=== PATIENT | female | born 1960 | race Caucasian/White ===

== ENCOUNTER 2020-07-11 15:39 | Outpatient (RCR) | payer OTHER, MEDICARE, SELFPAY ==
--- NOTE | 2020-07-11 16:22 | PTOPEVAL ---
Thank you for referring Missy Barrios to [facility].? The patient is scheduled to be seen for therapy? __3__x/week for 12 visits. Please review, sign, date and return this plan of care MEL. I agree with and certify that the following plan of care is medically necessary. Referring Physician Date Admitting Provider: Attending Provider: Mickey Raphael, PA Referring Provider: *PT Outpatient Evaluation Start: 07/11/20 15:44 Freq: Status: Active Protocol: Document 07/11/20 15:44 CAITLYN (Rec: 07/11/20 16:21 [email or web address] [email or web address]) Therapy Assessment Status Assessment Status Assessment Status Evaluation Evaluation Information Problem Diagnosis cervical radiculopathy Onset 01/09/20 Subjective Information Pt. describes pain on the left Query Text:As Reported By Patient/ side of the neck, down to her Family fingertips. She states that she experiences numbeness and tingling down the arm. She recalls no particular incident that started her pain. She states that her pain in the neck and arm does wake her at night. She states that her arm can feel weak and heavy. She does have trouble grasping objects on occassion. She states that her goal is to decrease her pain. Diagnostic Tests X-Rays For This Problem Yes Prior Level of Function Activity Level (Last 3 Months) Occupation retired Hand Dominance Right Activity of Daily Living Ability Independent Indoor/Home Mobility Independent Community Mobility Independent Stairs Ability Independent Functional Cognition (Planning, Shopping Independent , Taking Medications) Cooking Yes Cleaning Yes Laundry Yes Shopping Yes Driving Yes Pain Assessment Timing of Pain Assessment Timing of Pain Assessment Pre-Treatment Pain Scale Pain Scale Used Numeric (1 - 10) Self Report Pain Assessment Neck Reported Pain Level 8 Pain Description Numbness,Shooting Pain Radiation Left Arm,Left Shoulder Pain Frequency Continuous Lowest Pain Intensity 5 Greatest Pain Intensity 10 Pain Aggravating Factors Prolonged Position,Sitting Other Pain Aggravating Factors cooking Pain Score
--- NOTE | 2020-10-09 06:55 | PCPTNOTE ---
Pt. attended a total of 5 treatment sessions from 07/11/20 to 07/26/20. she has failed to contact or return to the clinic and will be discharged from our care. Refer to last daily note for pt. discharge status.
== END 2020-07-26 08:37 | disposition home or self-care (01) ==
LOC: CHSPT 15:39
PROVIDERS: PCP Physician Assistant; Visit Provider Physician Assistant
DX: M54.12 Radiculopathy, cervical region (principal)
CPT/HCPCS: 97014; 97110; 97140; 97161; G0283

== ENCOUNTER 2020-10-22 11:08 | Outpatient (CLI) | payer OTHER, MEDICARE, SELFPAY ==
[2020-10-22 11:56] LABS: SARS-CoV-2 Ag Negative (Negative)
== END 2020-10-22 11:09 | disposition home or self-care (01) ==
PROVIDERS: PCP Physician Assistant; Visit Provider Physician Assistant
DX: Z20.822 Contact with and (suspected) exposure to COVID-19 (principal)
CPT/HCPCS: 87426; C9803

== ENCOUNTER 2022-05-19 07:43 | Outpatient (RCR) | payer OTHER, MEDICARE, SELFPAY ==
--- NOTE | 2022-05-19 07:50 | PTOPEVAL1 ---
Assessment and note entered by Oksana Otto, PT Evaluation Information Assessment Status Evaluation Diagnosis R shoulder pain Onset 09/17/21 Subjective Information Missy Barrios reports she started having right shoulder pain about 8 months ago for unknown reasons. She states the pain got worse 2 months ago. She notes pain is located in the upper arm described as throbbing. She has worse pain at rest and with moving the arm across the body. She has to lay on the right side to make it not painful. She notes worse pain with laying on her back and on the left side. She went to the doctor and he thought she had a tear in her muscle so he ordered a MRI however, she can not have the MRI until she tries PT. Reported Pain Level Pain Score 10: Self Report Assessment PT Clinical Summary Missy Barrios presents with an insidious onset of right shoulder pain 8 months ago. She is having constant pain that is worse at rest and with reaching across her body. She objectively demonstrates poor posture, decreased and painful right shoulder AROM, decreased right shoulder strength, and positive special tests consistent with rotator cuff pathology. She will benefit from skilled PT to address these limitations. Plan of Care Interventions Electrical Stimulation,Hot Pack/Cold Pack,Manual Therapy,Therapeutic Activities,Therapeutic Exercise PT Services Indicated Yes Treatment Frequency and 2 times a week for 6 visits Duration These treatments will address the objective and functional deficits as defined above. The patient will be advanced safely and appropriately in order for the patient to progress towards his/her prior level of function. Additional exercises will be introduced and as well as a comprehensive home exercise program upon discharge, if needed, ?to ensure carryover of functional gains achieved in the clinic. This treatment plan has been reviewed and agreement upon by the patient.
--- NOTE | 2022-09-08 17:32 | PCPTNOTE ---
Mrs. Barrios attended a total of 3 treatment sessions from 05/19/22 to 05/29/22. She has failed to return to the clinic. Refer to last daily note for pt. discharge status.
== END 2022-05-29 23:59 | disposition home or self-care (01) ==
LOC: CHSPT 07:43
PROVIDERS: Visit Provider Physician Assistant
DX: M25.511 Pain in right shoulder (principal)
CPT/HCPCS: 97014; 97035; 97110; 97161; G0283

== ENCOUNTER 2023-03-23 13:36 | Outpatient (CLI) | payer OTHER, MEDICARE, SELFPAY ==
--- NOTE | ~2023-03-23 | XR_ITS ---
EXAM: XR foot LT 2V DATE: 03/23/2023 13:54 HISTORY: Injury- rolled ankle, pain in Lat. left foot x2 weeks . COMPARISON: 10/07/2018. FINDINGS: Normal mineralization. No fracture or dislocation. No lytic or blastic lesion. Mild degene rative change at the first MTP joint and multiple midfoot joints. Achilles and plantar enthesopathy. No erosion or periosteal change. Soft tissues within normal limits. IMPRESSION: No acute osseous finding in the left foot. Reviewed, dictated and finalized at location K.
== END 2023-03-23 13:37 | disposition home or self-care (01) ==
LOC: CHSIMG 13:39
PROVIDERS: PCP Physician Assistant; Visit Provider Physician Assistant
DX: S99.812A Other specified injuries of left ankle, initial encounter (principal); M79.672 Pain in left foot
CPT/HCPCS: 73620

== ENCOUNTER 2023-04-06 15:17 | Outpatient (CLI) | payer OTHER, MEDICARE, SELFPAY ==
--- NOTE | ~2023-04-06 | XR_ITS ---
EXAMINATION: [id number] INDICATION: Left-sided chest pain TECHNIQUE: Frontal view of the chest and 3 views of the left ribs were obtained. COMPARISON: None. FINDINGS: The lungs are free of acute opacities. No pleural effusion or pneumothorax. The cardiomedia stinal silhouette is normal. There are questionable anterolateral fractures of the left fourth and fi fth ribs. IMPRESSION: 1. Questionable anterolateral fractures of the left fourth and fifth ribs. 2. No acute cardiopulmonary abnormality. Reviewed, dictated and finalized at location A.
--- NOTE | ~2023-04-06 | XR_ITS ---
EXAMINATION: XR elbow LT min 3V DATE: 04/06/2023 15:50 INDICATION: Left elbow pain and limited range of motion post fall TECHNIQUE: Anteroposterior, two oblique and lateral views of the left elbow were obtained. COMPARISON: None. FINDINGS: Alignment is normal. Subtle very thin linear lucency extending across the articular cortex at the le ft radial head which is best appreciated on one of the lateral projections. Negligible, <0.5 mm incon gruity along the articular cortex. No other fractures identified. There is an associated elbow joint effusion with displacement of the anterior fat pad. Mild osteoarthritis at the left elbow. IMPRESSION: 1. Nondisplaced intra-articular fracture at the left radial head with associated elbow joint effusion . Reviewed, dictated and finalized at location A. IMPRESSION: 1. Nondisplaced intra-articular fracture at the left radial head with associate d elbow joint effusion.
== END 2023-04-06 15:18 | disposition home or self-care (01) ==
LOC: CHSIMG 15:22
PROVIDERS: PCP Physician Assistant; Visit Provider Physician Assistant
DX: S52.125A Nondisplaced fracture of head of left radius, initial encounter for closed fracture (principal); S22.42XA Multiple fractures of ribs, left side, initial encounter for closed fracture; M25.422 Effusion, left elbow; M25.522 Pain in left elbow
CPT/HCPCS: 71101; 73080

== ENCOUNTER 2023-04-14 14:43 | Outpatient (CLI) | payer OTHER, MEDICARE, SELFPAY ==
--- NOTE | ~2023-04-14 | XR_ITS ---
XR shoulder RT min 2V DATE: 04/14/2023 15:25 INDICATION: Fall one week ago. Limited range of motion of right shoulder TECHNIQUE: 4 views COMPARISON: None FINDINGS: No fracture or dislocation, periosteal reaction or bone destruction. No abnormal right shou lder soft tissue calcification is noted. IMPRESSION: No fracture or dislocation or locked facet Reviewed, dictated and finalized at location L.
--- NOTE | ~2023-04-14 | XR_ITS ---
XR knee LT min 4V DATE: 04/14/2023 15:26 INDICATION: Fall one week ago. Lateral pain. TECHNIQUE: 4 views COMPARISON: None FINDINGS: There is distention of the suprapatellar bursa suggesting joint effusion. There is enthesopathy of the patella at the quadriceps and patellar tendon insertions. There is mild periarticular spurring at the patellofemoral and lateral compartments consistent with o steoarthritis. Mild chondrocalcinosis is noted at the lateral compartment. Status post medial compartment surgical joint replacement. Osteopenia. No fracture, dislocation, periosteal reaction or bone destruction is detected. 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
--- NOTE | ~2023-04-14 | XR_ITS ---
XR knee RT min 4V DATE: 04/14/2023 15:26 INDICATION: Fall one week ago. Pain with bending the knee TECHNIQUE: 4 views COMPARISON: None FINDINGS: Prominent superior pole patellar enthesopathy at quadriceps tendon insertion. No fracture or dislocation or joint effusion is detected. No periosteal reaction or bone destruction. Joint spaces are relatively preserved. Slight periarticular spurring at the medial compartment. IMPRESSION: No fracture or dislocation or joint effusion Minimal osteoarthritis Reviewed, dictated and finalized at location L.
== END 2023-04-14 14:44 | disposition home or self-care (01) ==
LOC: CHSIMG 14:48
PROVIDERS: PCP Physician Assistant; Visit Provider Physician Assistant
DX: M25.511 Pain in right shoulder (principal); M25.562 Pain in left knee; M17.0 Bilateral primary osteoarthritis of knee; M25.462 Effusion, left knee; M85.89 Other specified disorders of bone density and structure, multiple sites; M11.262 Other chondrocalcinosis, left knee
CPT/HCPCS: 73030; 73564

== ENCOUNTER 2023-10-01 11:23 | Outpatient (CLI) | payer OTHER, MEDICARE, SELFPAY ==
--- NOTE | ~2023-10-01 | XR_ITS ---
EXAMINATION: XR foot LT min 3V DATE: 10/01/2023 11:48 INDICATION: Left foot pain. TECHNIQUE: 4 views of left foot were obtained. COMPARISON: Left foot radiograph 03/23/23 FINDINGS: Bone alignment is normal. There is an oblique fracture of head of second proximal phalanx i n near-anatomic alignment. There is mild osteoarthritis of first metatarsophalangeal joint and some o f the interphalangeal joints. There are enthesophytes at the posterior and plantar aspects of calcane al tuberosity. IMPRESSION: 1. Oblique fracture of head of second proximal phalanx in near-anatomic alignment. 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 Oblique fracture of head of second proximal phalanx in near-anatomic alignme nt.
== END 2023-10-01 11:24 | disposition home or self-care (01) ==
LOC: CHSLAB 11:29
PROVIDERS: PCP Physician Assistant; Visit Provider Physician Assistant
DX: S92.812A Other fracture of left foot, initial encounter for closed fracture (principal); M79.672 Pain in left foot
CPT/HCPCS: 73630

== ENCOUNTER 2023-10-31 09:50 | Outpatient (CLI) | payer OTHER, MEDICARE, SELFPAY ==
--- NOTE | ~2023-10-31 | XR_ITS ---
EXAM: XR foot LT min 3V DATE: 10/31/2023 10:05 HISTORY: pain/prior fx of 2nd digit on Lt. foot . COMPARISON: None available. FINDINGS: Normal mineralization. Redemonstration of the fracture of the distal aspect of the second proximal phalange, the fracture is comminuted (not evident in the prior study), intra-articular, and slightly more displaced. No new acute fracture or dislocation. No lytic or blastic lesion. Mild degen erative change at the first MTP joint and multiple midfoot joints. Moderate Achilles and mild plantar enthesopathy. No erosion or periosteal change. Soft tissues within normal limits. IMPRESSION: Slightly increased interval displacement of the comminuted, intra-articular fracture of t he distal aspect of the left second proximal phalange. Reviewed, dictated and finalized at location K. IMPRESSION: Slightly increased interval displacement of the comminuted, intra-a rticular fracture of the distal aspect of the left second proximal phalange.
== END 2023-10-31 09:51 | disposition home or self-care (01) ==
LOC: CHSIMG 09:52
PROVIDERS: PCP Physician Assistant; Visit Provider Physician Assistant
DX: S92.812A Other fracture of left foot, initial encounter for closed fracture (principal); M79.675 Pain in left toe(s)
CPT/HCPCS: 73630

== ENCOUNTER 2023-11-04 07:26 | Outpatient (CLI) | payer OTHER, MEDICARE, SELFPAY ==
--- NOTE | ~2023-11-04 | US_ITS ---
Abdominal Sonogram: Real-time sonographic imaging of the abdomen was performed. Clinical History: Epigastric pain Findings: The liver appears echogenic, with no evidence of mass lesion or bile duct dilatation. Main portal vein demonstrates normal direction of flow. The spleen is normal in size without evidence of focal lesion. The gallbladder is absent, compatible prior cholecystectomy. The common bile duct jose luis ures 5 mm. The visualized pancreas, aorta, and IVC are unremarkable. The right kidney measures 13.4 cm in length and the left kidney measures 12.1 cm. There is no hydronephrosis or renal calculus. Impression: Diffuse fatty infiltration of the liver. Reviewed, dictated and finalized at location . Impression: Diffuse fatty infiltration of the liver.
== END 2023-11-04 07:27 | disposition home or self-care (01) ==
LOC: CHSIMG 07:27
PROVIDERS: PCP Physician Assistant; Visit Provider Physician Assistant
DX: R10.13 Epigastric pain (principal); K76.0 Fatty (change of) liver, not elsewhere classified
CPT/HCPCS: 76700

== ENCOUNTER 2024-02-01 10:50 | Outpatient (CLI) | payer MEDICARE, SELFPAY ==
--- NOTE | ~2024-02-01 | XR_ITS ---
XR shoulder LT min 2V Ordering provider: Mickey Raphael, NELY History: . limited ROM, pain X 6 months, hx of dislocation . Comparison: None. FINDINGS: BONES: No acute fracture or dislocation. JOINT SPACES: The acromioclavicular joint is normal. The glenohumeral joint is normal. SOFT TISSUES: Normal. IMPRESSION: No acute osseous abnormality left shoulder. Reviewed, dictated and finalized at location A.
== END 2024-02-01 10:51 | disposition home or self-care (01) ==
LOC: CHSIMG 10:54
PROVIDERS: PCP Physician Assistant; Visit Provider Physician Assistant
DX: M25.512 Pain in left shoulder (principal)
CPT/HCPCS: 73030

== ENCOUNTER 2024-02-27 08:06 | Outpatient (CLI) | payer MEDICARE, SELFPAY ==
--- NOTE | ~2024-02-27 | MR_ITS ---
MRI of the left shoulder Technique: Axial proton-density fat-sat images, coronal proton density fat-sat and T2 fat-sat images, and sagittal T1-weighted and T2 fat-sat images were acquired. Clinical History: Pain, limited range of motion Findings: There is moderate AC joint degenerative change, bony productive change at the acromion and distal clavicle. Coracoclavicular, coracoacromial, and coracohumeral ligaments are intact. Supraspinatus and infraspinatus tendons are intact, without partial or full-thickness tear. There is minimal tendinosis. Subscapularis tendon is intact, with minimal tendinosis. Tendon of long head of t he biceps is intact. There is superior labral tear probably extending to the anterosuperior and posterior superior portion s of the labrum. Inferior glenohumeral ligament is intact. No degenerative change or significant effusion of the gleno humeral joint. There is mild fluid distention of the subacromial/subdeltoid bursa. No muscle atrophy or edema. Impression: Degenerative SLAP tear of the labrum. Mild rotator cuff tendinosis. No partial or full-thickness rotator cuff tear seen. Mild subacromial/subdeltoid bursitis. Moderate AC joint degenerative change. Reviewed, dictated and finalized at location . Impression: Degenerative SLAP tear of the labrum. Mild rotator cuff tendinosis. No partial or full-thickness rotator cuff tear se en. Mild subacromial/subdeltoid bursitis. Moderate AC joint degenerative change.
== END 2024-02-27 08:07 | disposition home or self-care (01) ==
LOC: CHSIMG 08:07
PROVIDERS: PCP Physician Assistant; Visit Provider Physician Assistant
DX: M25.512 Pain in left shoulder (principal); S43.432A Superior glenoid labrum lesion of left shoulder, initial encounter; M77.8 Other enthesopathies, not elsewhere classified; M75.52 Bursitis of left shoulder
CPT/HCPCS: 73221

== ENCOUNTER 2024-05-31 13:49 | Outpatient (CLI) | payer MEDICARE, SELFPAY ==
--- NOTE | ~2024-05-31 | XR_ITS ---
3 VIEWS LUMBAR SPINE Ordering provider: Mickey Raphael, PA History: . pain - surgery locationX 25 yrs, limited ROM, radiating down . Comparison: None. FINDINGS: VERTEBRAL BODIES:levoscoliosis. Transitional vertebra is seen. No visible fracture or subluxation. DISK SPACES: Disc spacer at the level of L5-S1. SOFT TISSUES: Normal. IMPRESSION: No acute osseous abnormality lumbar spine. Reviewed, dictated and finalized at location A.
== END 2024-05-31 13:50 | disposition home or self-care (01) ==
LOC: CHSIMG 13:52
PROVIDERS: PCP Physician Assistant; Visit Provider Physician Assistant
DX: M54.16 Radiculopathy, lumbar region (principal)
CPT/HCPCS: 72100

== ENCOUNTER 2024-06-11 09:10 | Emergency (ER) | payer MEDICARE, SELFPAY ==
--- NOTE | ~2024-06-11 | XR_ITS ---
EXAMINATION: XR_RIBSBI_CR DATE: 06/11/2024 10:13 INDICATION: Bilateral rib pain. TECHNIQUE: 2 views of the right ribs on 3 radiographs and 2 views of the left ribs on 3 radiographs w ere obtained. COMPARISON: None. FINDINGS: There is mild atelectasis in left lower lung zone. No pleural effusion or pneumothorax. The heart size is normal. There are fracture deformities of right fourth and fifth ribs. Surgical clips in the right upper quadrant are likely from cholecystectomy. IMPRESSION: 1. Age-indeterminate fracture deformities of right fourth and fifth ribs. Reviewed, dictated and finalized at location A.
[2024-06-11 09:13] VITALS: BP 158/87; PULSE 74; RESP 20; TEMP 36.6; O2SAT 98
--- NOTE | 2024-06-11 09:55 | PC.NURSE ---
Patient taken to radiology department
[2024-06-11] MEDS: KETOROLAC 30 MG/ML VIAL (*BKC) IM (10:15)
--- NOTE | 2024-06-11 10:17 | PC.NURSE ---
RN went to give patient toradol shot after she agreed to administration. patient then decided against medication after RN scanned in medication to administer. ERP made aware patient requesting Oral medication.
--- NOTE | 2024-06-11 10:20 | ED.GENADULT ---
HPI - General Adult General Chief complaint: Unspecified Stated complaint: rib pain Source: patient Mode of arrival: ambulatory Limitations: no limitations History of Present Illness HPI narrative: this is a 63-year-old female presents with some bilateral rib pain after she strained and heard a pop in her ribs bilaterally having pain, allergic to morphine and refused. Is currently no shortness of breath no bruising no chest pain no nausea vomiting no abdominal pain. Onset (ago): week(s) Radiation: non-radiation Severity: moderate Severity scale (1-10): 5 Quality: aching Pain Consistency: constant Related Data Home Medications Medication Instructions Recorded Confirmed alprazolam 0.5 mg tablet 0.5 mg PO TID 06/11/24 06/11/24 insulin regular hum U-500 conc 500 See Rx Instructions .Route .COMPLEX 06/11/24 06/11/24 unit/mL(3 mL) subcut pen (Humulin R U-500 (Conc) Insulin Kwikpen) lisinopril 20 1 tablet PO DAILY 06/11/24 06/11/24 mg-hydrochlorothiazide 25 mg tablet metformin 1,000 mg tablet 1,000 mg PO BID 06/11/24 06/11/24 omeprazole 20 mg capsule,delayed 20 mg PO DAILY 06/11/24 06/11/24 release Allergies Allergy/AdvReac Type Severity Reaction Status Date / Time iodine Allergy Severe Anaphylaxis Verified 06/11/24 09:40 morphine Allergy Unknown vomiting Verified 01/20/23 11:30 Review of Systems Review of Systems: All systems reviewed & are unremarkable except as noted in HPI and below PMFSH Family History Family History Other Diabetes mellitus Family history of chronic obstructive pulmonary disease Family history of malignant neoplasm of kidney Family history of obesity Family history of osteoporosis Social History Social History Smoking status: Smoker, status unknown Alcohol intake: never Exam Const: General: cooperative, healthy appearing and no acute distress Chest: Chest palpation & inspection: normal inspection of the chest and normal palpation of entire chest wall Resp: Effort & Inspection: normal respiratory effort and able to speak in complete sentences Auscultation: clear to auscultation bilaterally Cardio: Jugular venous distension: no JVD Palpation: normal PMI Rate: regular rate Rhythm: regular rhythm GI: Inspection: normal to inspection Back/Spine/Pelvis: Back: no CVA tenderness Skin: General skin exam: normal color and no rashes or lesions noted Neuro: General: oriented to person, oriented to place and oriented to time Extrem: Other: Tenderness bilateral ribs with palpation Course Course Emergency Course: patient declined taking Toradol shot for pain has an aversion to NSAIDs and all allergies to morphine will give a dose of 1g Tylenol, x-rays performed show age indeterminate fractures of the 4th and 5th rib on the right. Vital Signs Vital signs: Vital Signs Temperature 36.6 C 06/11/24 09:13 Pulse Rate 74 06/11/24 09:13 Respiratory Rate 20 06/11/24 09:13 Blood Pressure 158/87 H 06/11/24 09:13 Pulse Oximetry 98 06/11/24 09:13 Oxygen Delivery Room Air 06/11/24 09:13 Temperature 36.6 C 06/11/24 09:13 Pulse Rate 74 06/11/24 09:13 Respiratory Rate 20 06/11/24 09:13 Blood Pressure 158/87 H 06/11/24 09:13 Pulse Oximetry 98 06/11/24 09:13 Oxygen Delivery Room Air 06/11/24 09:13 Medical Decision Making Vital Signs Vital Signs: Vital Signs Temperature 36.6 C 06/11/24 09:13 Pulse Rate 74 06/11/24 09:13 Respiratory Rate 20 06/11/24 09:13 Blood Pressure 158/87 H 06/11/24 09:13 Pulse Oximetry 98 06/11/24 09:13 Oxygen Delivery Room Air 06/11/24 09:13 Temperature 36.6 C 06/11/24 09:13 Pulse Rate 74 06/11/24 09:13 Respiratory Rate 20 06/11/24 09:13 Blood Pressure 158/87 H 06/11/24 09:13 Pulse Oximetry 98 06/11/24 09:13 Oxygen Delivery Room Air 06/11/24 09:13 Critical Care Time Critical Care Time Critical Care Time: No Discharge Plan Discharge Clinical Impression: Ribs, multiple fractures Qualifiers: Encounter type: initial encounter Fracture type: closed Laterality: right Qualified Code(s): S22.41XA - Multiple fractures of ribs, right side, initial encounter for closed fracture Patient Disposition: Home, Self-Care Condition: Stable Instructions: Antibiotic Form, Rib Fracture (ED) Additional Instructions: advised to follow with primary care physician take Tylenol as needed for pain. Prescriptions: No Action alprazolam 0.5 mg tablet 0.5 mg PO TID metformin 1,000 mg tablet 1,000 mg PO BID omeprazole 20 mg capsule,delayed release(DR/EC) 20 mg PO DAILY lisinopril-hydrochlorothiazide 20-25 mg tablet 1 tablet PO DAILY Humulin R U-500 (Conc) Kwikpen 500 unit/mL (3 mL) insulin pen See Rx Instructions .ROUTE .COMPLEX Rx Instructions: per RX instructions Follow-up/Referrals: Ijeoma,NELY Cunningham [Primary Care Provider] -
[2024-06-11] MEDS: ACETAMINOPHEN 500 MG TABLET 1000 MG PO (10:24)
[2024-06-11 10:36] VITALS: BP 146/79; PULSE 69; RESP 18; TEMP 36.5; O2SAT 100
== END 2024-06-11 10:36 | disposition home or self-care (01) ==
PROVIDERS: Emergency Provider Emergency Medicine; PCP Physician Assistant
DX: S22.41XA Multiple fractures of ribs, right side, initial encounter for closed fracture (principal); Z79.899 Other long term (current) drug therapy; Z79.4 Long term (current) use of insulin; X50.0XXA Overexertion from strenuous movement or load, initial encounter
CPT/HCPCS: 71110; 99283; J1885

== ENCOUNTER 2024-06-20 11:30 | Outpatient (RCR) | payer MEDICARE, SELFPAY ==
--- NOTE | 2024-06-20 12:38 | PTOPEVAL1 ---
Assessment and note entered by Jovan Linares Evaluation Information Assessment Status Evaluation Diagnosis s/p arthroscopy of left shoulder Z98.890, adhesive capsulitis of L shoulder Onset 06/15/24 Subjective Information Pt. reports that she underwent surgery on 06/15/24 . She states that she fell on the left arm about 1 year ago, and pain developed after that. She states that she has been exercising since surgery. 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 She states that she is still performing this task, but cannot do any heavy lifting. She reports that she is sleeping in a recliner currently, but was in bed prior to surgery. She reports that she is left hand dominant. She reports that her goal is to regain normal left hand use. Reported Pain Level Pain Score 5: Self Report Assessment PT Clinical Summary Pt. is a 63 year old female who enters the clinic 5 day post left shoulder arthroscopy. She presents with impaired strength, impaired ROM, pain and functional decline. Continued skilled PT is indicated in order to improve these areas to allow the pt. to achieve her goal of normal left u .e. use. Plan of Care Interventions Electrical Stimulation,Hot Pack/Cold Pack,Manual Therapy,Neuro Re-education,Patient/Caregiver Educati,Therapeutic Activities,Therapeutic Exercise PT Services Indicated Yes Treatment Frequency and 2x/week x 10 visits Duration These treatments will address the objective and functional deficits as defined above. The patient will be advanced safely and appropriately in order for the patient to progress towards his/her prior level of function. Additional exercises will be introduced and as well as a comprehensive home exercise program upon discharge, if needed, ?to ensure carryover of functional gains achieved in the clinic. This treatment plan has been reviewed and agreement upon by the patient.
--- NOTE | 2024-07-06 14:48 | PCPTNOTE ---
Cancelled session. Reports she has another appointment and cannot make it today. She notes she will be here Thursday.
--- NOTE | 2024-07-08 14:48 | PCPTNOTE ---
No call, no show.
--- NOTE | 2024-07-25 14:41 | PTOPEVAL1 ---
Assessment and note entered by Jovan Linares Evaluation Information Assessment Status Progress Diagnosis s/p arthroscopy of left shoulder Z98.890, adhesive capsulitis of L shoulder Onset 06/15/24 Subjective Information Pt. reports that she has not been able to attend recent therapy due to a busy schedule. she reports that her left shoulder is doing better, but she is still having tingling and numbness around the left side of the neck and described behind the ear and toward the shoulder. She reports that the numbness and tingling is constant . she reports that the area of the left upper trap is worsened with any light touch, such as her shirt rubbing on the area. She states that she can no longer sleep due to the numbness in her neck and she is now taking sleeping pills to be able to fall asleep. She reports that she is not taking any pain medication. She reports that her mobility in the left shoulder is improved, but states that reaching back to fasten her bra is still difficult. she reports that her goal is to reduce her numbness and improve her mobility. Reported Pain Level Pain Score 0,6: Self Report Assessment PT Clinical Summary Pt. re-enters the clinic for the first time since 06/29/24. She has demonstrated excellent progress in regards to ROM despite poor attendance. Still note weakness at the proximal left u.e. despite the progress in mobility. Pt. continues to describe numbness in the area of the c-spine consistent with cervical radiculopathy on this date. Continued skilled PT is indicated in order to continue to improve strength to allow for improved efficiency with IADL's. Plan of Care Interventions Electrical Stimulation,Hot Pack/Cold Pack,Manual Therapy,Neuro Re-education,Patient/Caregiver Educati,Therapeutic Activities,Therapeutic Exercise PT Services Indicated Yes Treatment Frequency and 2x/week x 6 visits Duration These treatments will address the objective and functional deficits as defined above. The patient will be advanced safely and appropriately in order for the patient to progress towards his/her prior level of function. Additional exercises will be introduced and as well as a comprehensive home exercise program upon discharge, if needed, ?to ensure carryover of functional gains achieved in the clinic. This treatment plan has been reviewed and agreement upon by the patient.
== END 2024-09-18 23:59 | disposition home or self-care (01) ==
LOC: CHSPT 11:30
PROVIDERS: Visit Provider Orthopaedic Surgery
DX: M75.02 Adhesive capsulitis of left shoulder (principal); Z98.890 Other specified postprocedural states
CPT/HCPCS: 97014; 97110; 97140; 97161; G0283

== ENCOUNTER 2024-10-13 10:31 | Outpatient (RCR) | payer MEDICARE, SELFPAY ==
--- NOTE | 2024-10-13 11:33 | OPREHPOC ---
Outpatient Therapy Plan of Care This is a Multidisciplinary Plan of Care that may contain components documented by all disciplines (PT, OT, and ST.) PT Problem 1 PT Problem #1 Knowledge Deficit PT Goal 1 Goal / Goal Update 1. independent and compliant with HEP Target Visit 6 PT Problem 2 PT Problem #2 Pain PT Goal 1 Goal / Goal Update 1. decrease pain at worst to 2/10 or less in the L shoulder. 2. patient to be able to sleep through the night at least 4 nights a week Target Visit 12 PT Problem 3 PT Problem #3 Impaired Range of Motion PT Goal 1 Goal / Goal Update 1. 150 degrees or better active L shoulder flex 2. 80 degrees or better active L shoulder ER Target Visit 12 PT Problem 4 PT Problem #4 Impaired Strength PT Goal 1 Goal / Goal Update 1. 4+/5 or better L shoulder strength 2. 5/5 L elbow strength Target Visit 12 PT Problem 5 PT Problem #5 Impaired Functional Mobility PT Goal 1 Goal / Goal Update 1. quick dash to display 20% or less functional deficits 2. patient to reach behind head to the shirt collar without pain with the L hand 3. patient to reach behind back to the bra line without pain with the L hand 4. patient to lift 5lbs overhead to tall shelf x10 repetitions without pain Target Visit 12
--- NOTE | 2024-10-13 11:33 | PTOPEVAL1 ---
Assessment and note entered by JT File, PT Evaluation Information Assessment Status Evaluation ICD-10 Condition Codes (PT) Pain in left shoulder M25.512 Subjective Information patient reports she was receiving treatment for her neck in pain management. she reports the neck is doing well, but the L shoulder is now bothering her. she reports she has not yet been able to see her ortho due to work and illness. she reports she has pain all the time in the L shoulder. she reports she has pain along the outside of the L shoulder. she reports she is unable to sleep on the L side due to pain that will wake her up. she reports she has had no imaging of the L shoulder yet. she reports she has had no injections or meds subscribed for the L shoulder. she reports she had a L shoulder surgery back in june of last year. she came to therapy here for the L shoulder after this surgery. she reports it was not a cuff repair, but a clean out procedure. Reported Pain Level Pain Score 5: Self Report Assessment PT Clinical Summary mrs. de leon is a 63 yo woman who presents to skilled PT services for evaluation and treatment of L shoulder pain. her signs and symptoms indicate a RTC tendonitis with secondary impingement syndrome. 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 continued skilled PT is indicated to improve patients objective/functional deficits and return to her prior level functional activity performance/ quality of life. Plan of Care Interventions Electrical Stimulation,Hot Pack/Cold Pack,Manual Therapy,Neuro Re-education,Patient/Caregiver Education,Therapeutic Activities,Therapeutic Exercise PT Services Indicated Yes Treatment Frequency and 3x weekly for 12 visits Duration These treatments will address the objective and functional deficits as defined above. The patient will be advanced safely and appropriately in order for the patient to progress towards his/her prior level of function. Additional exercises will be introduced and as well as a comprehensive home exercise program upon discharge, if needed, ?to ensure carryover of functional gains achieved in the clinic. This treatment plan has been reviewed and agreement upon by the patient.
--- NOTE | 2024-11-04 08:20 | OPREHPOC ---
Outpatient Therapy Plan of Care This is a Multidisciplinary Plan of Care that may contain components documented by all disciplines (PT, OT, and ST.) PT Problem 1 PT Problem #1 Knowledge Deficit PT Goal 1 Goal / Goal Update 1. independent and compliant with HEP Target Visit 6 Progress Met PT Problem 2 PT Problem #2 Pain PT Goal 1 Goal / Goal Update 1. decrease pain at worst to 2/10 or less in the L shoulder. 2. patient to be able to sleep through the night at least 4 nights a week Target Visit 12 Progress Not Met PT Problem 3 PT Problem #3 Impaired Range of Motion PT Goal 1 Goal / Goal Update 1. 150 degrees or better active L shoulder flex 2. 80 degrees or better active L shoulder ER Target Visit 12 Progress Not Met PT Problem 4 PT Problem #4 Impaired Strength PT Goal 1 Goal / Goal Update 1. 4+/5 or better L shoulder strength 2. 5/5 L elbow strength Target Visit 12 Progress Not Met PT Problem 5 PT Problem #5 Impaired Functional Mobility PT Goal 1 Goal / Goal Update 1. quick dash to display 20% or less functional deficits 2. patient to reach behind head to the shirt collar without pain with the L hand 3. patient to reach behind back to the bra line without pain with the L hand 4. patient to lift 5lbs overhead to tall shelf x10 repetitions without pain Target Visit 12 Progress Not Met
--- NOTE | 2024-11-04 08:20 | PTOPPROG ---
Assessment and note entered by Piper Hightower, PT Evaluation Information Assessment Status Progress ICD-10 Condition Codes (PT) Pain in left shoulder M25.512 Subjective Information Mrs. Barrios reports her shoulder is still hurting. She received dry needling treatment by MICHEL Ahmadi DPT during her last visit and she reports benefit following this. However this yesterday she did a lot of baking which irritated her shoulder, and she also did her granddaughters hair this morning which also caused her pain to come back. Overall she feels the same as she did when starting therapy, if not worse. Assessment PT Clinical Summary Mrs. Barrios has attended 8 total skilled PT visits addressing L shoulder pain. She has made only slight progress in her ROM since beginning therapy, and her strength and pain levels are unchanged. She still struggles with sleeping through the night due to pain but does feel relief with use of modalities and TPDN. She will benefit from continued skilled PT intervention to reduce pain, improve joint mobility and increase strength to be able to perform functional activities with less pain. Plan of Care Interventions Electrical Stimulation,Hot Pack/Cold Pack,Manual Therapy,Neuro Re-education,Patient/Caregiver Education,Therapeutic Activities,Therapeutic Exercise Other Interventions TPDN PT Services Indicated Yes Treatment Frequency and 2x/week for 8 additional visits Duration These treatments will address the objective and functional deficits as defined above. The patient will be advanced safely and appropriately in order for the patient to progress towards his/her prior level of function. Additional exercises will be introduced and as well as a comprehensive home exercise program upon discharge, if needed, ?to ensure carryover of functional gains achieved in the clinic. This treatment plan has been reviewed and agreement upon by the patient.
--- NOTE | 2024-11-04 08:21 | OPREHPOC ---
Outpatient Therapy Plan of Care This is a Multidisciplinary Plan of Care that may contain components documented by all disciplines (PT, OT, and ST.) PT Problem 1 PT Problem #1 Knowledge Deficit PT Goal 1 Goal / Goal Update 1. independent and compliant with HEP Target Visit 6 Progress Met PT Problem 2 PT Problem #2 Pain PT Goal 1 Goal / Goal Update 1. decrease pain at worst to 2/10 or less in the L shoulder. 2. patient to be able to sleep through the night at least 4 nights a week Target Visit 16 Progress Not Met PT Problem 3 PT Problem #3 Impaired Range of Motion PT Goal 1 Goal / Goal Update 1. 150 degrees or better active L shoulder flex 2. 80 degrees or better active L shoulder ER Target Visit 16 Progress Not Met PT Problem 4 PT Problem #4 Impaired Strength PT Goal 1 Goal / Goal Update 1. 4+/5 or better L shoulder strength 2. 5/5 L elbow strength Target Visit 16 Progress Not Met PT Problem 5 PT Problem #5 Impaired Functional Mobility PT Goal 1 Goal / Goal Update 1. quick dash to display 20% or less functional deficits 2. patient to reach behind head to the shirt collar without pain with the L hand 3. patient to reach behind back to the bra line without pain with the L hand 4. patient to lift 5lbs overhead to tall shelf x10 repetitions without pain Target Visit 16 Progress Not Met
--- NOTE | 2024-11-11 07:27 | PCPTNOTE ---
Pt cancelled session, no reason given. States she will call back later to schedule for next week.
--- NOTE | 2024-11-30 14:42 | PTOPDC ---
Assessment and note entered by Piper Hightower, PT Evaluation Information Assessment Status Discharge - Pt Not Present ICD-10 Condition Codes (PT) Pain in left shoulder M25.512 Subjective Information Mrs. Barrios reports her shoulder is still hurting. She received dry needling treatment by MICHEL Ahmadi DPT during her last visit and she reports benefit following this. However this yesterday she did a lot of baking which irritated her shoulder, and she also did her granddaughters hair this morning which also caused her pain to come back. Overall she feels the same as she did when starting therapy, if not worse. Assessment PT Clinical Summary Pt reports her shoulder is feeling improved and that she would like to discharge from therapy this date. Plan of Care PT Services Indicated Yes
== END 2024-11-24 21:48 | disposition home or self-care (01) ==
LOC: CHSPT 10:31
PROVIDERS: Visit Provider Nurse Practitioner
DX: M25.512 Pain in left shoulder (principal)
CPT/HCPCS: 97014; 97110; 97140; 97150; 97161; G0283

== ENCOUNTER 2024-10-17 11:18 | Emergency (ER) | payer MEDICARE, SELFPAY ==
[2024-10-17 11:28] VITALS: BP 127/71; PULSE 100; RESP 16; TEMP 36.7; O2SAT 94
--- NOTE | 2024-10-17 11:45 | ED.NAVMDI ---
HPI - Nausea/Vomiting/Diarrhea General Chief complaint: Nausea/Vomiting/Diarrhea Stated complaint: belching /diarrhea Time Seen by Provider: 10/17/24 11:46 Source: patient and RN notes reviewed Mode of arrival: ambulatory Limitations: no limitations History of Present Illness HPI Narrative: 63 y/o female with Diabetes presented for c/o diarrhea today. States symptoms started with 'loud growling that moved around the abdomen' early this morning. When she was able to have BM she reports green liquid stool. Has had multiple liquid stools including accidents since 0800, and says the growling has stopped. Patient also reports frequent belching that 'smells rotten like farts.' Denies abdominal pain, distension, nausea vomiting, fever or lethargy. Endorses history of 'bowel problems' and takes Imodium or an unknown prescribed medication from PCP to prevent stool incontinence at times. She has not taken the medicine today. Completed abx about 10 days ago for a cough following influenza. Related Data Home Medications ?Medication ?Instructions ?Recorded ?Confirmed ?Last Taken ?Type alprazolam 0.5 mg tablet 0.5 mg PO TID 06/11/24 06/11/24 Unknown History insulin regular hum U-500 conc 500 See Rx Instructions .Route .COMPLEX 06/11/24 06/11/24 Unknown History unit/mL(3 mL) subcut pen (Humulin R U-500 (Conc) Insulin Kwikpen) lisinopril 20 1 tablet PO DAILY 06/11/24 06/11/24 Unknown History mg-hydrochlorothiazide 25 mg tablet metformin 1,000 mg tablet 1,000 mg PO BID 06/11/24 06/11/24 Unknown History omeprazole 20 mg capsule,delayed 20 mg PO DAILY 06/11/24 06/11/24 Unknown History release atorvastatin 40 mg tablet mg 10/17/24 Unknown History semaglutide 0.25 mg or 0.5 mg (2 mg subcut 10/17/24 Unknown History mg/3 mL) subcutaneous pen injector (Ozempic) Allergies Allergy/AdvReac Type Severity Reaction Status Date / Time iodine Allergy Severe Anaphylaxis Verified 06/11/24 09:40 morphine Allergy Unknown vomiting Verified 01/20/23 11:30 Review of Systems Review of Systems: CONSTITUTIONAL: Denies body aches, fever, chills ENT: Denies rhinorrhea, congestion CARDIOVASCULAR: Denies chest pain, palpitations, or edema. RESPIRATORY: Denies cough or dyspnea. GASTROINTESTINAL: Endorses abdominal cramping, belching, diarrhea. Denies nausea, vomiting, hematochezia, melena, hematemesis GENITOURINARY: Denies dysuria, hematuria, or CVA tenderness. NEUROLOGIC: Denies headache, numbness, tingling, or weakness. All systems reviewed & are unremarkable except as noted in HPI and below PMFSH Past Medical History Medical History (Updated 10/17/24 @ 12:16 by Elise Garcia, GNE) Diabetes type 2, uncontrolled Family History Family History Other Diabetes mellitus Family history of chronic obstructive pulmonary disease Family history of malignant neoplasm of kidney Family history of obesity Family history of osteoporosis Social History Social History Smoking status: Smoker, status unknown Alcohol intake: never Comments At time of signature, I have reviewed and agree with nursing past medical, surgical, social and family history unless otherwise noted. Please see nursing chart for further information. There is no relevant family history pertinent to the presenting complaint Exam Narrative: GENERAL: Well-appearing, and in no acute distress. ENT: Mucous membranes pink and moist. CHEST: No respiratory distress. Clear to auscultation. HEART: Regular rate and rhythm. No murmur appreciated. Normal peripheral pulses. ABDOMEN: abd soft, nondistended, normal active bowel sounds. nontender abdomen: No guarding, rebound tenderness, asymmetry SKIN: Warm, dry, no rash. Capillary refill normal. Normal skin turgor. NEURO: No focal deficits. Alert and oriented x3. PSYCH: Normal affect. Course Course Emergency Course: Patient is aware of diagnosis, understands and agrees to treatment plan. Anticipatory guidance given. Patient agrees to follow-up as directed and is aware of reasons to seek care at the emergency department. Portions of this record may have been created with voice recognition software Level of Care: Express Care Visit Vital Signs Vital signs: Vital Signs Temperature 98.0 F 10/17/24 11:28 Pulse Rate 100 10/17/24 11:28 Respiratory Rate 16 10/17/24 11:28 Blood Pressure 127/71 10/17/24 11:28 Pulse Oximetry 94 10/17/24 11:28 Oxygen Delivery Room Air 03/03/25 11:28 Temperature 98.0 F 10/17/24 11:28 Pulse Rate 100 10/17/24 11:28 Respiratory Rate 16 10/17/24 11:28 Blood Pressure 127/71 10/17/24 11:28 Pulse Oximetry 94 10/17/24 11:28 Oxygen Delivery Room Air 10/17/24 11:28 MDM - Nausea/Vomiting/Diarrhea MDM Narrative Medical decision making narrative: Discussed physical exam findings, nontender abdomen. Frequent incontinent stools while in clinic. Offered ER transfer patient declines at this time says she will call for a refill of the medication she takes for diarrhea from PCP (pt does not recall the name). Advised supportive measures and signs/symptoms to go to the ER.Discussed possible etiologies with pt. Pt is appropriate for outpt treatment and f/u. Differential Diagnosis Differential diagnosis: Likely traveler's diarrhea, food poisoning, gastroenteritis, clostridium difficile infection, drug-induced nausea and vomiting, dehydration and other Discharge Plan Discharge Clinical Impression: Diarrhea Patient Disposition: Home, Self-Care Condition: Stable Instructions: Antibiotic Form, Acute Diarrhea (ED) Additional Instructions: Stay hydrated. Take small sips of fluid containing electrolytes frequently. Clear liquids (broth, jello, tea, sprite, pedialyte) [place] [employer] foods (bananas, rice, applesauce, toast, crackers) Avoid fatty, greasy, fried or spicy foods. Limit dairy until symptoms are improved. [id number] Imodium according to package directions Recommend probiotic such as align or lactobacillus to help with symptoms. You should go to the hospital if you experience persistent nausea and vomiting that does not resolve and does not allow you to tolerate any food or fluids, fevers, increasing abdominal pain, persistent diarrhea, dizziness, fainting, or for any other concerns. Follow up with primary care provider in 3 days. Call today to schedule an appointment and for the medicine refill. Patient Language: [place] Citizen Prescriptions: No Action alprazolam 0.5 mg tablet 0.5 mg PO TID metformin 1,000 mg tablet 1,000 mg PO BID omeprazole 20 mg capsule,delayed release(DR/EC) 20 mg PO DAILY lisinopril-hydrochlorothiazide 20-25 mg tablet 1 tablet PO DAILY Humulin R U-500 (Conc) Kwikpen 500 unit/mL (3 mL) insulin pen See Rx Instructions .ROUTE .COMPLEX Rx Instructions: per RX instructions atorvastatin 40 mg tablet Ozempic 0.25 mg or 0.5 mg (2 mg/3 mL) pen injector SUBCUT Follow-up/Referrals: Ijeoma,NELY Cunningham [Primary Care Provider] - Time of Disposition: 12:16
== END 2024-10-17 12:21 | disposition home or self-care (01) ==
PROVIDERS: Emergency Provider Nurse Practitioner Family; PCP Physician Assistant
DX: R19.7 Diarrhea, unspecified (principal); E11.9 Type 2 diabetes mellitus without complications
CPT/HCPCS: 99211; G0463

== ENCOUNTER 2024-10-21 07:51 | Outpatient (CLI) | payer MEDICARE, SELFPAY ==
--- NOTE | ~2024-10-21 | US_ITS ---
EXAMINATION: US abdomen complete DATE: 10/21/2024 08:27 INDICATION: Right upper quadrant abdominal pain. Diarrhea. TECHNIQUE: Multiple grayscale and Doppler ultrasound images of the abdomen were obtained. COMPARISON: Ultrasound 11/04/2023 FINDINGS: Sensitivity is decreased by obesity. The visualized portions of the head and body of the pa ncreas are normal. There is diffuse hepatic steatosis. The gallbladder is absent. The common duct is normal and measures 4 mm. There is normal flow in main portal vein. The spleen is normal in size. The kidneys are normal in size. There is a 1.4 cm cyst in left kidney. Abdominal aortic is normal in yisel iber. The inferior vena cava is normal. IMPRESSION: 1. Diffuse hepatic steatosis. Reviewed, dictated and finalized at location A. PRINTER INSTALLER
--- OUTSIDE RECORDS SUMMARY | 2024-10-21 07:58 | XMS_ITS | Patient Health Record ---
Author Organization [facility] Address [address] [place] [address] [place] [phone] Care Team Providers Care Director Of Security Name Role Phone Jose Sharp Unavailable [phone] Mickey Raphael Unavailable Unavailable Allergies Allergen (clinical drug ingredient) Drug/Non Drug Allergy documented on EMR Reaction Allergy Type Onset Date Status morphine IV MORPHINE (uncoded) Unknown Allergy Active Reason For Referral No Information Medications Medication SIG (Take, Route, Frequency, Duration) Notes Start Date End Date Status Sulfamethoxazole-TMP DS 1 tablet Orally twice a day for 14 days Active Tradjenta 5 MG 1 tablet Orally Once a day prn glucose> 150 Active traMADol HCl 50 MG 1 tablet as needed Orally every 6 hrs prn pain for 15 days 03/26/2016 Active Temazepam 15 MG 1 capsule at bedtime as needed Orally Once a day Active Hair/Skin/Nails Orally 3 x a day 1 morn, 1 evening, 1 night Active humulin insulin po 6 units 3 x a day and 30 units at bedtime Active Problems Problem Type SNOMED Code ICD Code Onset Dates Problem Status W/U Status Risk Notes Problem 157880982 Low back pain (M54.5) Active confirmed Problem 345820480 Overweight (E66.3) Active confirmed Problem 66670491 Hematuria (R31.9) Active confirmed Problem 92696565 Incontinence (R32) Active confirmed Problem 544972038 Diabetes mellitu s without complication (E11.9) Active confirmed Problem 583612606 Renal cell carcinoma (C64.9) Active confirmed Plan Of Treatment Pending Test Test Name Order Date Ultrasound : Kidneys, bilate ral and urinary bladder with post void residual 03/17/2016 X ray : Spines, lumbosacral 03/26/2016 PT AND PTT 12/06/2014 CBC (H/H, RBC, INDICES, WBC, PLT) 2014 URINALYSIS REFLEX 12/06/2014 URINALYSIS REFLEX 03/26/2016 URINALYSIS REFLEX 04/30/2016 SED RATE BY MODIFIED WESTERGREN 12/07/19 15 Comp Metabolic Panel 12/06/2014 Comp Metabolic Panel 03/26/2016 CBC With Auto Diff 03/26/2016 CBC With Auto Diff 04/30/2016 CT scan abdomen and pelvis without contr ast 12/06/2014 cystogram 03/26/2016 Comp Metabolic Panel 04/30/2016 Sedimentation Rate 03/26/2016 Culture, Urine 03/17/2016 Insurance Providers Payer Name Payer Address Payer Phone Subscriber Number Group Number Insured Name Patient Relationship to Insured Coverage Start Date Coverage End Date [employer] [address] [place] [address] [id number] Missy Barrios Self - patient is the insured [employer] Medicare [place] Part B Secondary [address] [address] [place] [address] [id number] ChristopheriselaMissy yoo Self - patient is the insured 3
--- OUTSIDE RECORDS SUMMARY | 2024-10-21 07:59 | XMS_ITS | Referral Summary ---
Author Organization [facility] Address [address] [place] [address] Care Team Providers Care Materials Tech Name Role Phone Mickey Raphael Primary Care Provider [phone] Source Comments [facility],non-owned Affiliates and Associated Physician Practices is amultiple site organization consisting of ambulatory clinics and hospital sitesin [place], [place], [place] and [place]. This disclosure is being madepursuant to the Care Everywhere program and may not contain all information available regarding this patient. 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 This patient has had 2x renal cell carcinomas, type no known. Type 2 diabetes mellitus without complications 1 09/29/2012 Abnormal levels of other serum enzymes 3 Social History Tobacco Use Types Packs/Day Years Used Date Smoking Tobacco: Every Day Smokeless Tobacco: Never Alcohol Use Standard Drinks/Week Comments No 0 (1 standard drink = 0.6 oz pur e alcohol) Sex and Gender Information Value Date Recorded Sex Assigned at Not on file Gender Identity Not on file Sexual Orientation Not on file Last Filed Vital Signs Vital Sign Reading Time Taken Comments Blood Pressure 123/93 08/30/2013 11:19 AM [employer] Pulse 83 08/30/2013 11:19 AM [employer] Temperature 36.5 C (97.7 F) 08/30/2013 11:19 AM [employer] Respiratory Rate 18 08/30/2013 11:19 AM [employer] Oxygen Saturation - - Inhaled Oxygen Concentration - - Weight 99.6 kg (219 lb 9.6 oz) 08/30/2013 11:19 AM [employer] Height 172.7 cm (5' 8 ) 08/30/2013 11:19 AM [employer] Body Mass Index 33.39 08/30/2013 11:19 AM [employer] Plan of Treatment Not on file Procedures Procedure Name Priority Date/Time Associated Diagnosis Comments HEPATITIS C ANTIBODY Routine 07/29/2013 2:58 PM [employer] from Last 3 Months or Most Recently Relevant to Health Maintenance Results * HEPATITIS C ANTIBODY (07/29/2013 2:58 PM [employer]) Hepatitis C Antibody NONREACTIVE NONREACTIVE [facility] Comment: Anti-HCV screen indicates no serologic evidence of past or current infection with Hepatitis C Virus. Patients with unexplained liver disease who are immunocompromised or suspected of having acute Hepatitis C infection may benefit from Nucleic Acid Test (MICHELLE) for Hepatitis C Viral RNA to confirm Hepatitis C status. 07/29/2013 2:58 PM [employer] 07/29/2013 4:08 PM [employer] Adryan Palafox MD LAB - CHEMISTRY ORDERABLES [address] [phone] from Last 3 Months or Most Recently Relevant to Health Maintenance Care Teams Materials Tech Relationship Specialty Start Date End Date Mickey Raphael PA [address] [place] [address] PCP - General 07/29/13
--- OUTSIDE RECORDS SUMMARY | 2024-10-21 07:59 | XMS_ITS ---
Author Organization [facility], formerly [facility] Address [address] [place] [address] Care Team Providers Care Food Service Worker Name Role Phone Mickey Raphael Primary Care Provider Angeles James MD Unavailable Kevin Zepeda MD Unavailable [phone] Johanna Perez OT Unavailable Amaury Ornelas MD Unavailable [phone] Active Problems Problem Noted Date Diagnosed Date Shoulder impingement, unspecified laterality Biceps tendonitis on left 06/02/2024 Arthritis of left acromioclavicular joint 2023 Nontraumatic incomplete tear of left rotator cuf f 06/02/2024 Adhesive capsulitis of left shoulder 06/02/2024 Primary osteoarthritis of fi rst carpometacarpal joint of left hand 10/16/2021 Overview (10/16/2021): Added automatically from request for surgery [id number] Carpal tunnel syndrome, left 10/16/2021 Overview (10/16/2021): Added automatically from request for surgery [id number] Blood in urine 07/17/2021 Malignant neoplasm of kidney 07/17/2021 Chronic cough 07/17/2021 Fatty stool 07/17/2021 Menopausal syndrome 07/17/2021 Reduced libido 07/17/2021 Sleep apnea 07/17/2021 Syncope 07/17/2021 Hypertriglyceridemia 12/23/2018 Tobacco abuse 12/23/2018 Type 2 diabetes mellitus wit h diabetic polyneuropathy, with long-term current use of insulin 12/23/2018 Rectovaginal fistula 11/18/2018 Full incontinence of feces 11/18/2018 Renal cell carcinoma 02/25/2018 Generalized anxiety disorder 11/25/2017 Vertigo, benign paroxysmal, bilateral 11/10/2017 Assessment & Plan (11/10/2017 10:28 AM CDT): Patient has nystagmus Horizontally, bilaterally. Clinically him a very typical presentation of a benign vertigo. Denies using any new prescription medications or being sick recently with any infection or any ear pain, this is 1st time happening to her. she was evaluated with head CT, showing no acute disease. Starting meclizine, continue IV fluids, neurology consultation. ED physician mentions altered mental status per , but patient did not have any alteration of mental status, but complains of a feeling foggy in her head, lightheaded. Vasovagal syncope 11/10/2017 Assessment & Plan (11/10/2017 11:02 AM CDT): The this was really near syncope in after patient had a blood draw 0 add the primary care physician's office, most likely vasovagal. Will get orthostatic blood pressures, continue IV fluids, syncope workup is pending including echocardiogram, carotid ultrasound. Also considering MRI of the brain. Neurology consultation pending. Patient has been on monitor showing sinus rhythm since admission. Will get 1 EKG and 1 troponin for initial evaluation. EEG pending. Patient did not have any chest pain or palpitation before all this happened except for having dizziness presenting the day before. There is no stigmata of infection at this moment causing her drowsiness and near syncope episode. Her urine reportedly was orange but we do not see any infection, chest x-ray shows no acute disease. Class 1 obesity due to exces s calories with body mass index (BMI) of 32.0 to 32.9 in adult 08/25/2017 Assessment & Plan (08/25/2017 11:22 PM QUILT SEWER): BMI Follow-up includes: nutrition counseling, exercise counseling and education provided. Hypertension 08/04/2017 Overview (08/04/2017): Will continue home medications. Blood pressure is controlled. Assessment & Plan (11/10/2017 10:10 AM CDT): Well controlled. Assessment & Plan (08/25/2017 11:23 PM QUILT SEWER): Hypertension is well controlled on lisinopril-HCTZ. Assessment & Plan (08/04/2017 10:07 AM QUILT SEWER): Will continue home medicines. Blood pressure is stable. 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 This patient has had 2x renal cell carcinomas, type no known. Thoracic root lesion 06/25/2012 Feces contents abnormal 02/23/2012 Current Treatment and Therapy Plans No current plan information found. Past Treatment and Therapy Plans No past plan information found. Lifetime Dose Tracking * Chemical Lifetime Dose Automatic Entry Manual Entr y Fluoro Time 0.808 minutes 0.808 minutes 0 minutes Air kerma at the reference point (Ka,r) 53.013 mGy 5 3.013 mGy 0 mGy Resolved Problems Problem Noted Date Diagnosed Date Resolved Date De Quervain's tenosynovitis 10/16/2021 04/09/2023 Overview (10/16/2021): Added automatically from request for surgery [id number] Abdominal mass 07/17/2021 04/09/2023 Acute folliculitis 07/17/2021 Backache 07/17/2021 04/09/2023 Furuncle of thigh 07/17/2021 04/09/2023 Laceration 07/17/2021 04/09/2023 Laceration of finger 07/17/2021 023 Lymphadenopathy 07/17/2021 04/09/2023 Pain in toe 07/17/2021 04/09/2023 Pharyngitis 07/17/2021 04/09/2023 Bronchitis 07/17/2021 04/09/2023 Diabetes mellitus 07/17/2021 04/09/2023 Upper respiratory infection 07/17/2021 04/09/2023 Class 1 obesity due to exces s calories with serious comorbidity and body mass index (BMI) of 33.0 to 33.9 in adult 01/02/2020 04/09/2023 High blood pressure 12/23/2018 04/09/20 RVF (rectovaginal fistula) 11/18/2018 0 04/09/2023 Overview (11/18/2018): Added automatically from request for surgery [id number] Angina at rest 08/04/2017 04/09/2023 Assessment & Plan (08/04/2017 6:20 PM QUILT SEWER): Patient does not have any history of coronary artery disease. So far ruled out for acute WI. stress echocardiogram exercise test was normal. Patient has known multiple risk factors including: postmenopausal, diabetes, hypertension, dyslipidemia, family history of WI. Recommending to take daily baby aspirin, good diabetes control, follow up with primary care physician, the see a crew caller if chest pain continues. Most likely her chest pain was related to acid reflux. Controlled type 2 diabetes m ellitus with hyperglycemia, with long-term current use of insulin 08/04/2017 04/09/2023 Assessment & Plan (11/10/2017 10:08 AM CDT): This is benign, patient is not able to eat now due to nausea. Will adjust with basal bolus insulin as soon as starts tolerating p.o.. Current blood sugar is 110. Assessment & Plan (08/25/2017 11:28 PM QUILT SEWER): 56 years old female with history of renal cell CA status post bilateral partial nephrectomies, obesity, hypertension and fatty liver seen for management of uncontrolled type 2 diabetes mellitus. Hemoglobin A1c was 9.3% in March 2017. Reports blood sugars in the 150s-200. Did not bring log or meter. 1. Will increase metformin to 1000 mg daily with dinner. Continue 500 mg with breakfast. If tolerating, increase breakfast dose to 1000 mg in 4 days. 2. Will stop basaglar. Start Tresiba 80 units hs for more extended basal coverage. 3. Continue NovoLog 30 units with dinner. 4. NovoLog 5-10 units with breakfast (low carbs). 5.SMBG q.a.c. hs and send log in 2-3 weeks. 6. Consistent carb diet. 7. Increased activity with goal of 30 minutes daily, 5 times per week. 8.. Advised to follow with Ophthalmology. 9. Will discuss statin therapy next visit. 10. Follow-up in 6 weeks. Assessment & Plan (08/04/2017 10:23 AM QUILT SEWER): She takes metformin and basal insulin at home. Her blood sugar is 165. She is kept NPO for stress test. Angina decubitus 08/04/2017 04/09/2023 Hypertensive disorder 08/04/20172022 Staphylococcus aureus superf icial folliculitis 04/25/2016 04/09/2023 Helicobacter pylori infection 09/10/2015 04/09/2023 Diarrhea 05/07/2015 04/09/2023 Dehiscence of operative wound 02/22/2014 04/09/2023 Pneumaturia 02/22/2014 04/09/2023 Left sided abdominal pain 12/23/2013 Diverticulitis of colon 11/21/201303/18 Abnormal levels of other serum enzymes 07/29/2013 04/09/2023 Type 2 diabetes mellitus wit hout complications 07/29/2013 04/09/2023 Hematochezia 02/23/2012 04/09/2023 Melena 02/23/2012 04/09/2023 Leukocytosis 06/20/2011 04/09/2023
--- OUTSIDE RECORDS SUMMARY | 2024-10-21 07:59 | XMS_ITS | Encounter Summary ---
Author Organization [facility] Address [address] [place] [address] Care Team Providers Care Floating Labor Gang Supervisor Name Role Phone Mickey Raphael Primary Care Provider [phone] Angeles James MD Unavailable Kevin Zepeda MD Unavailable [phone] Johanna Perez OT Unavailable [phone] Amaury Ornelas MD Unavailable [phone] Encounter Details Date Type Department Care Team (Late st Contact Info) Description 11/26/2020 Telephone [facility] [address] [place] [id number] [address]ju[address] Garner, [place] Social History Tobacco Use Types Packs/Day Years Used Date Smoking Tobacco: Some Days Cigarettes Started: 1983 Smokeless Tobacco: Never Comments:social smoker, less than 1 pack per month Alcohol Use Standard Drinks/Week Comments Not Currently 0 (1 standard drink = 0.6 oz pur e alcohol) Comments No Sex and Gender Information Value Date Recorded Sex Assigned at Not on file Legal 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 Unknown dates. 04/24/2016 04/24/2016 04/03/2021 5:00 AM C DT documented as of this encounter Care Teams Floating Labor Gang Supervisor Relationship Specialty Start Date End Date Mickey Raphael PA [address] [place] [address] PCP - General 11/30/17 Angeles James MD [address] [place] [address] Medical Oncologist/Direct Marketing Analyst Medical Oncology 03/04/18 [place] [address] [place] [address] Ham Stripper Gastroenterology 02/23/19 [place] [address] [facility] [address] [place] [address] Occupational Therapist Occupational Therapy 12/05/21 Amaury Ornelas MD [address] [place] [address] [address] [place] [address] Consulting Physician Anesthesiology 10/07/24 documented as of this encounter
--- OUTSIDE RECORDS SUMMARY | 2024-10-21 07:59 | XMS_ITS | Clinical Summary ---
Author Organization [facility] Address [address] [place] [address] Care Team Providers Care Research Program Intern Name Role Phone Mickey Raphael Primary Care Provider [phone] Source Comments [facility],non-owned Affiliates and Associated Physician Practices is amultiple site organization consisting of ambulatory clinics and hospital sitesin [place], [place], [place] and [place]. This disclosure is being madepursuant to the Care Everywhere program and may not contain all information available regarding this patient. Last updated 18.[facility] Allergies Active Allergy Reactions Criticality Noted Date [...] Abnormal levels of other serum enzymes 3 Family History Medical History Relation Name Comments Cancer Father Cancer - Renal Father Diabetes Father Status: Alive Diabetes Mother Status: Alive None Known Sister Status: Alive Relation Name Status Comments Father Mother Sister Social History Tobacco Use Types Packs/Day Years [...] Comments Blood Pressure 123/93 08/30/2013 11:19 AM CORPORATE ACCOUNT EXECUTIVE Pulse 83 08/30/2013 11:19 AM CORPORATE ACCOUNT EXECUTIVE Temperature 36.5 C (97.7 F) 08/30/2013 11:19 AM CORPORATE ACCOUNT EXECUTIVE Respiratory Rate 18 08/30/2013 11:19 AM CORPORATE ACCOUNT EXECUTIVE Oxygen Saturation - - Inhaled Oxygen Concentration - - Weight 99.6 kg (219 lb 9.6 oz) 08/30/2013 11:19 AM CORPORATE ACCOUNT EXECUTIVE Height 172.7 cm (5' 8 ) 08/30/2013 11:19 AM CORPORATE ACCOUNT EXECUTIVE Body Mass Index 33.39 08/30/2013 11:19 AM CORPORATE ACCOUNT EXECUTIVE Plan of Treatment Health Maintenance Due Date Last Done Comments COLOGUARD (AGES 45-75) - COL ON CA SCREENING 1962 COLON MONITORING 1962 COLONOSCOPY - COLON CA SCREENING 1962 CT COLONOGRAPHY - COLON CA SCREENING 1962 Colorectal Cancer Screening 1962 FIT - COLON CA SCREENING 1962 FLEX SIG - COLON CA SCREENING 1962 LIPID TESTING 1962 MAMMOGRAM 1962 PAP SMEAR 1962 HIV SCREENING 1977 DTAP/TDAP/TD VACCINES (1 - Tdap) 1981 PNEUMOCOCCAL VACCINE 50+ (1 of 2 - PCV) 1981 PNEUMOCOCCAL VACCINE (1 of 2 - PCV) 1981 ZOSTER VACCINE (1 of 2) 2012 COVID-19 VACCINE ( - 2023-2 5 season) 2024 INFLUENZA VACCINE (#1) 2024 DEPRESSION SCREENING 08/17/2024 Respiratory Syncytial Virus (RSV) Vaccine Pt: or over 60 yrs (1 - 1-dose 75+ series) 2037 HEPATITIS C SCREENING Completed 07/29/2013 HEPATITIS B VACCINE Aged Out No longe r eligible based on patient's age to complete this topic HIB VACCINE Aged Out No longer eligi ble based on patient's age to complete this topic HPV VACCINE Aged Out No longer eligi ble based on patient's age to complete this topic MENINGOCOCCAL (Group B) VACCINE Aged Out No longer eligible based on patient's age to complete this topic MENINGOCOCCAL VACCINE Aged Out No chepe tal eligible based on patient's age to complete this topic Procedures Procedure Name Priority Date/Time Associated Diagnosis Comments HEPATITIS C ANTIBODY Routine 07/29/2013 2:58 PM CORPORATE ACCOUNT EXECUTIVE from Last 3 Months or Most Recently Relevant to Health Maintenance Results * HEPATITIS C ANTIBODY (07/29/2013 2:58 PM CORPORATE ACCOUNT EXECUTIVE) Hepatitis C Antibody NONREACTIVE NONREACTIVE [facility] Comment: Anti-HCV screen indicates no serologic evidence of past or current infection with Hepatitis C Virus. Patients with unexplained liver disease who are immunocompromised or suspected of having acute Hepatitis C infection may benefit from Nucleic Acid Test (MICHELLE) for Hepatitis C Viral RNA to confirm Hepatitis C status. 07/29/2013 2:58 PM CORPORATE ACCOUNT EXECUTIVE 07/29/2013 4:08 PM CORPORATE ACCOUNT EXECUTIVE Adryan Palafox MD LAB - CHEMISTRY ORDERABLES [address] [phone] from Last 3 Months or Most Recently Relevant to Health Maintenance Care Teams Research Program Intern Relationship Specialty Start Date End Date Mickey Raphael PA [address] [place] [address] PCP - General 07/29/13
--- OUTSIDE RECORDS SUMMARY | 2024-10-21 07:59 | XMS_ITS | Patient Health Summary ---
Author Organization [facility] Address [address] [place] [address] Care Team Providers Care Meat Market Manager Name Role Phone Mickey Raphael Primary Care Provider [phone] [facility] from [facility],non-owned Affiliates and Associated Physician Practices is amultiple site organization consisting of ambulatory clinics and hospital sitesin [place], [place], [place]. This disclosure is being madepursuant to the Care Everywhere program and may not contain all information available regarding this patient. Last updated 18.[facility] [employer] Allergies * Contrast-Iodinated Agents For Ct/Other(Other) -Low Criticality Active Problems Problem Noted Date Diagnosed Date Other phakomatoses, not elsewhere classified Type 2 diabetes mellitus without complications 1 [...] Comments Blood Pressure 123/93 08/30/2013 11:19 AM LICENSE INSPECTOR Pulse 83 08/30/2013 11:19 AM LICENSE INSPECTOR Temperature 36.5 C (97.7 F) 08/30/2013 11:19 AM LICENSE INSPECTOR Respiratory Rate 18 08/30/2013 11:19 AM LICENSE INSPECTOR Oxygen Saturation - - Inhaled Oxygen Concentration - - Weight 99.6 kg (219 lb 9.6 oz) 08/30/2013 11:19 AM LICENSE INSPECTOR Height 172.7 cm (5' 8 ) 08/30/2013 11:19 AM LICENSE INSPECTOR Body Mass Index 33.39 08/30/2013 11:19 AM LICENSE INSPECTOR Procedures * US ABDOMEN LIMITED(Performed 08/15/2013) * HEPATITIS C ANTIBODY(Performed 07/29/2013) * HEPATITIS B SURFACE ANTIGEN W RFLX CONFIRMATION(Performed 07/29/2013) * HEPATITIS B CORE ANTIBODY TOTAL(Performed 07/29/2013) * HEMOGLOBIN A1C(Performed 07/29/2013) * TSH(Performed 07/29/2013) * COMPREHENSIVE METABOLIC PANEL(Performed 07/29/2013) * PT-INR [facility](Performed 07/29/2013) * CBC W AUTO DIFFERENTIAL(Performed 07/29/2013) Results * US ABDOMEN LIMITED (08/15/2013 10:06 AM LICENSE INSPECTOR) Anatomical Region Laterality Modality Abdomen Other Impressions 08/16/2013 1:30 PM LICENSE INSPECTOR Impression: 1. Diffusely increased hepatic echogenicity most likely representing hepatic steatosis. No evidence of hepatic mass or intrahepatic or extrahepatic biliary dilatation. 2. No evidence of cholelithiasis. 3. Contour irregularity of the right kidney superior pole with exophytic soft tissue prominence along the superior pole. This most likely relates to scarring of the kidney due to prior partial nephrectomy, however a solid lesion in this region is not entirely ruled out. Correlation with prior abdominal contrast CT or MRI or further evaluation with contrast-enhanced CT or MRI is recommended. This report was approved by Gina Selby M.D. on 08/15/2013 10:26 AM . I, Dr. Pramod SANCHEZ M.D. have personally reviewed and interpreted this examination/study. This report was electronically signed by Pramod SANCHEZ M.D. on 08/16/2013 1:30 PM . Narrative 08/16/2013 1:30 PM LICENSE INSPECTOR Exam: Abdominal ultrasound limited Date: 08/15/2013 History: Nonalcoholic fatty liver disease, right upper quadrant pain, history of bilateral partial nephrectomies for renal cell carcinoma per patient Comparison: No prior ultrasound, correlation made with prior outside CT dated 06/01/2013 Findings: The liver demonstrates diffusely increased echogenicity which most likely representing hepatic steatosis. There is no discrete mass or intrahepatic biliary dilation. The gallbladder is free of gallstone, gallbladder wall thickening, or pericholecystic fluid. The common bile duct measures 6 mm, within normal limits. The hepatic veins and the main portal vein are patent. Small perihepatic ascites is visible. The right kidney measures 10.9 x 5.8 x 4.8 cm. There is contour irregularity of the superior pole of the right kidney with exophytic soft tissue prominence along the superior pole measuring 4.9 x 6 cm. The spleen measures 9.8 cm in length. The visible pancreatic head and body show normal echogenicity. Procedure Note Petrona Sanchez MD - 11/14/2017 Exam: Abdominal ultrasound limited Date: 08/15/2013 History: Nonalcoholic fatty liver disease, right upper quadrant pain,history of bilateral partial nephrectomies for renal cell carcinoma perpatient Comparison: No prior ultrasound, correlation made with prior outside CTdated 06/01/2013 Findings: The liver demonstrates diffusely increased echogenicity which most likelyrepresenting hepatic steatosis. There is no discrete mass or intrahepaticbiliary dilation. The gallbladder is free of gallstone, gallbladder wallthickening, or pericholecystic fluid. The common bile duct measures 6 mm, within normal limits. Thehepatic veins and the main portal vein are patent. Small perihepatic ascites is visible. The right kidney measures 10.9 x 5.8 x 4.8 cm. There is contourirregularity of the superior pole of the right kidney with exophytic softtissue prominence along the superior pole measuring 4.9 x 6 cm. The spleenmeasures 9.8 cm in length. The visible pancreatic head and body show normal echogenicity. IMPRESSION Impression: 1. Diffusely increased hepatic echogenicity most likely representinghepatic steatosis. No evidence of hepatic mass or intrahepatic orextrahepatic biliary dilatation. 2. No evidence of cholelithiasis. 3. Contour irregularity of the right kidney superior pole with exophyticsoft tissue prominence along the superior pole. This most likely relatesto scarring of the kidney due to prior partial nephrectomy, however asolid lesion in this region is not entirely ruled out. Correlation with prior abdominal contrast CT or MRI orfurther evaluation with contrast-enhanced CT or MRI is recommended. This report was approved by Gina Selby M.D. on 08/15/2013 10:[address] Pramod Bruce M.D. have personally reviewed and interpreted thisexamination/study. This report was electronically signed by Pramod SANCHEZ M.D. on08/16/2013 1:30 PM . Adryan Palafox MD US ORDERABLES * HEPATITIS B CORE ANTIBODY (07/29/2013 2:58 PM LICENSE INSPECTOR) Hepatitis B Core Virus Antibody Total NONREACTIVE NONREACTIVE [facility] 07/29/2013 2:58 PM LICENSE INSPECTOR 07/29/2013 4:08 PM LICENSE INSPECTOR Adryan Palafox MD LAB - CHEMISTRY ORDERABLES [address] [phone] * HEPATITIS B SURFACE ANTIGEN W RFLX CONFIRMATION (07/29/2013 2:58 PM LICENSE INSPECTOR) Hepatitis B Virus Surface Antigen NONREACTIVE NONREACTIVE [facility] 07/29/2013 2:58 PM LICENSE INSPECTOR 07/29/2013 4:08 PM LICENSE INSPECTOR Adryan Palafox MD LAB - CHEMISTRY ORDERABLES Performing Organization Address [facility] Co de Phone Number [address] [phone] * HEPATITIS C ANTIBODY (07/29/2013 2:58 PM LICENSE INSPECTOR) Pathologist [facility] Hepatitis C Antibody NONREACTIVE NONREACTIVE [facility] Comment: Anti-HCV screen indicates no serologic evidence of past or current infection with Hepatitis C Virus. Patients with unexplained liver disease who are immunocompromised or suspected of having acute Hepatitis C infection may benefit from Nucleic Acid Test (MICHELLE) for Hepatitis C Viral RNA to confirm Hepatitis C status. 07/29/2013 2:58 PM LICENSE INSPECTOR 07/29/2013 4:08 PM LICENSE INSPECTOR Adryan Palafox MD LAB - CHEMISTRY ORDERABLES Performing Organization Address City/[facility]/[place] [address], [facility] [phone] * PT-INR [facility] (07/29/2013 2:38 PM LICENSE INSPECTOR) Pathologist [facility] PT 12.4 12.1 - 14.8 SECONDS [facility] INR 1.0 [facility] Comment: SUGGESTED THERAPEUTIC RANGE FOR LOW-INTENSITY COUMADIN THERAPY FOR VENOUS THROMBOEMBOLISM IS INR 2.0-3.0. FOR HIGH RISK PATIENTS (MITRAL VALVE PROSTHESIS, ATRIAL FIBRILLATION, HISTORY OF TIA/STROKE), SUGGESTED THERAPEUTIC RANGE IS INR 2.5-3.5. 07/29/2013 2:38 PM LICENSE INSPECTOR 07/29/2013 4:08 PM LICENSE INSPECTOR Adryan Palafox MD LAB - COAGULATI ON ORDERABLES [address] [phone] * (ABNORMAL) HEMOGLOBIN A1C (07/29/2013 2:38 PM LICENSE INSPECTOR) Pathologist [facility] Hemoglobin A1c 7.0(H) 4.4 - 6.3 % [facility] Estimated Average Glucose 154 mg/dL [facility] 07/29/2013 2:38 PM LICENSE INSPECTOR 07/29/2013 4:08 PM LICENSE INSPECTOR Adryan Palafox MD LAB - CHEMISTRY ORDERABLES Performing Organization Address City/[facility]/ZIP Co de Phone Number [address] [phone] * (ABNORMAL) CBC W AUTO DIFFERENTIAL (07/29/2013 2:38 PM LICENSE INSPECTOR) Pathologist [facility] WBC 9.8 3.5 - 10.5 10^3/uL [facility] RBC 4.85 3.90 - 5.00 10^6/uL [facility] Hemoglobin 14.3 12.0 - 15.5 g/dL [facility] Hematocrit 42.3 35.0 - 45.0 % [facility] MCV 87.2 81.0 - 97.0 FL [facility] MCH 29.5 28.0 - 34.0 PG [facility] MCHC 33.8 32.0 - 36.0 G/DL [facility] Platelet 268 150 - 400 10^3/uL [facility] RDW 13.3 11.2 - 14.8 % [facility] RDW-SD 42.5 36 - 50 FL [facility] MPV 9.7 9.3 - 12.8 FL [facility] Neutrophils % 59.2 35.0 - 70.0 % [facility] Lymphocytes % 33.3 19.7 - 55.1 % [facility] Monocytes % 5.7 3 - 15 % [facility] Eosinophils % 1.5 0.0 - 6.0 % [facility] Basophils % 0.3 0.0 - 1.5 % [facility] Neutrophils Absolute 5.8 1.7 - 7.0 10^3/uL [facility] Lymphocyte Absolute 3.3(H) 0.8 - 2.9 10^3/uL [facility] Monocytes Absolute 0.6 0.14 - 0.66 10^3/uL [facility] Eosinophils Absolute 0.15 0.00 - 0.22 10^3/uL [facility] Basophils Absolute 0.03 0.02 - 0.06 10^3/uL [facility] Differential Type AUTO DIFFERENTIAL [facility] 07/29/2013 2:38 PM LICENSE INSPECTOR 07/29/2013 4:08 PM LICENSE INSPECTOR Adryan Palafox MD LAB - HEMATOLOG Y ORDERABLES Performing Organization Address City/State/[facility] Co de Phone Number [address] [phone] * (ABNORMAL) COMPREHENSIVE METABOLIC PANEL (07/29/2013 2:38 PM LICENSE INSPECTOR) BUN 15 7 - 26 mg/dL [facility] Creatinine 0.7 0.6 - 1.2 mg/dL [facility] eGFR by MDRD > 60 ML/MIN [facility] Comment: Chronic kidney disease: <60 ml/min Kidney failure: <15 ml/min Based on BSA of 1.73m2. Sodium 142 136 - 145 mmol/L [facility] Potassium 3.4(L) 3.5 - 4.5 mmol/L [facility] Chloride 104 98 - 107 mmol/L [facility] CO2 24 22 - 29 mmol/L [facility] Glucose 156(H) 70 - 115 mg/dL [facility] Calcium 9.7 8.4 - 10.2 mg/dL [facility] Protein Total 7.6 6.0 - 8.3 g/dL [facility] Albumin 3.4 3.4 - 5.0 g/dL [facility] Bilirubin Total 0.5 0.2 - 1.2 mg/dL [facility] Alkaline Phosphatase 94 40 - 150 Units/L [facility] ALT 27 0 - 55 Units/L [facility] AST 19 5 - 34 Units/L [facility] Anion Gap 17 8 - 18 [facility] BUN/Creatinine Ratio 21 7 - 23 [facility] Osmolality Calculation 282 270 - 300 mOsm/kg [facility] Albumin/Globulin Ratio 0.8(L) 1.1 - 2.3 [facility] 07/29/2013 2:38 PM LICENSE INSPECTOR 07/29/2013 4:08 PM LICENSE INSPECTOR Adryan Palafox MD LAB - CHEMISTRY ORDERABLES [address] [phone] * TSH (07/29/2013 2:38 PM LICENSE INSPECTOR) TSH 1.171 0.350 - 4.940 uIU/mL [facility] 07/29/2013 2:38 PM LICENSE INSPECTOR 07/29/2013 4:08 PM LICENSE INSPECTOR Adryan Palafox MD LAB - CHEMISTRY ORDERABLES [address] [phone] Care Teams Meat Market Manager Relationship Specialty Start Date End Date Mickey Raphael PA [address] [place] [address] PCP - General 07/29/13
--- OUTSIDE RECORDS SUMMARY | 2024-10-21 07:59 | XMS_ITS | Clinical Summary ---
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 Gender Identity Not on file Sexual Orientation Not on file Plan of Treatment Health Maintenance Due Date Last Done Comments Cervical Cancer Screening Pa p Smear (Age 30 to 64) Every 3 Years 1962 Colorectal Cancer Screening Colonoscopy (10 Years) 1962 Annual Physical 1965 Hepatitis C 1980 DTaP, Tdap and Td Vaccines ( 1 - Tdap) 1981 Cervical Cancer Screening Pa p with HPV Testing (Age 30 to 64) Every 5 Years 1992 Cervical Cancer Screening with HPV 1992 Mammogram Screening 2002 Zoster Vaccines (1 of 2) 2012 COVID-19 Vaccine (2023-2 5 season) 2024 Influenza Adult (#1) 2024 RSV Immunization or 60+ Years (1 - 1-dose 75+ series) 2037 Meningococcal B Vaccine Aged Out No l onger eligible based on patient's age to complete this topic Meningococcal Vaccine Aged Out No chepe tal eligible based on patient's age to complete this topic Pneumococcal Vaccine: Pediat rics (0 to 5 Years) and At-Risk Patients (6 to 64 Years) Aged Out No longer eligible b ased on patient's age to complete this topic RSV Immunizations Under 20 Months Aged Out No longer eligible based on patient's age to complete this topic
--- OUTSIDE RECORDS SUMMARY | 2024-10-21 08:00 | XMS_ITS | Clinical Summary ---
Author Organization [facility] Address [address] [place] [address] Phone Care Team Providers Care Winter Sports Manager Name Role Phone Mickey Raphael Primary Care Provider [phone] Jovan Sneed MD Unavailable [phone] Jass Mckeon MD Unavailable Jass Mckeon MD Unavailable Allergies Active Allergy Reactions Criticality Noted Date Comments Iodine Other (see Comments) 04/25/2016 Patient says she is not supposed to use iodine because of her kidney cancer Morphine Vomiting 05/15/2016 Medications esomeprazole (NEXIUM) 40 MG CAPSULE DELAYED RELEASE 40 mg daily. 1 tablet every day 04/03/20 16 Active colestipol (COLESTID) 1 GM Tablet Take 1 g by mouth 2 times daily. Active pancrelipase, lipase-protea se-amylase, (CREON 17446) [address]-[address] units [address]ule [address] Particles Take 1 Capsule by mouth 3 times daily (with meals). Active lisinopril-hy droCHLOROthia zide (PRINZIDE, ZESTORETIC) 20-25 MG Tablet Take 1 Tab by mouth daily. Active metFORMIN (GLUCOPHAGE) 500 MG Tablet Take 2 Tabs by mouth 2 times daily. 2 tablets twice a day 360 Tab 1 11/04/19 19 Active Glucose Blood (FREESTYLE PRECISION JALEN TEST) StripIndicati ons:Type 2 diabetes mellitus with diabetic polyneuropath y, with long-term current use of insulin ([facility]) Test sugars if patients feel they are having a low or high blood sugar 100 Strip 3 12/24/19 19 Active Continuous Blood Gluc Transmit (Dexcom G6 Transmitter) Misc 1 Each by Does not apply route every 90 days. Change sensor every 90 days. 1 Each 3 12/16/19 22 Active scopolamine (TRANSDERM-SC OP) 1 MG/3DAYS PATCH 72 HR scopolamine 1 mg over 3 days transdermal patch Apply 1 patch every 72 hours by transdermal route. Active traMADol (ULTRAM) 50 MG Tablet 1 tablet as needed Orally every 6 hrs prn pain for 15 days 03/26/20 16 Active temazepam (RESTORIL) 15 MG Capsule 1 capsule at bedtime as needed Orally Once a day Active diphenoxylate -atropine (Lomotil) 2.5-0.025 MG Tablet Take 2 tablets 4 times a day by oral route as needed for 5 days. 02/25/20 23 Active insulin regular human, CONCENTRATED, (HumuLIN R U-500 KwikPen) 500 UNIT/ML Solution Pen-injector INJECT 210 UNITS SUBCUTANEOUSLY AT BREAKFAST, 50 UNITS AT LUNCH, AND 70 UNITS AT DINNER 60 mL 1 08/06/20 23 Active Insulin Pen Needle (Pen Fence) 32G X 4 MM [facility] 1 Pen Needle by Does not apply route in the morning and at bedtime. 200 Each 11/11/19 24 Active Continuous Glucose Corrosion Prevention Metal Sprayer (Dexcom G7 Corrosion Prevention Metal Sprayer) Device Check blood glucose before each meal and at bedtime 1 Each 02/04/20 24 Active fenofibrate 160 MG Tablet Take 1 Tablet by mouth daily. 90 Tablet 1 02/04/20 24 Active atorvastatin (LIPITOR) 40 MG Tablet Take 1 Tablet by mouth daily. 90 Tablet 1 02/04/20 24 Active Continuous Glucose Sensor (Dexcom G7 Sensor) Misc CHANGE SENSOR EVERY 10 DAYS 9 Each 1 07/08/20 24 Active Ozempic, 0.25 or 0.5 MG/DOSE, 2 MG/3ML Solution Pen-injector 0.25 MG UNDER THE SKIN WEEKLY FOR 4 WEEK AND 0.5 MG WEEKLY FOR 4 WEEKS 3 mL 10/14/19 25 Active Ozempic, 0.25 or 0.5 MG/DOSE, 2 MG/3ML Solution Pen-injector 0.25 mg SC weekly for 4 week and 0.5 mg SC weekly for 4 weeks 6 mL 02/04/202024 Discontinued Active Problems Problem Noted Date Diagnosed Date Class 1 obesity due to exces s calories with serious comorbidity and body mass index (BMI) of 33.0 to 33.9 in adult 01/02/2020 Type 2 diabetes mellitus wit h diabetic polyneuropathy, with long-term current use of insulin 12/23/2018 Obesity (BMI 30-39.9) 12/23/2018 Tobacco abuse 12/23/2018 High blood pressure 12/23/2018 Hypertriglyceridemia 12/23/2018 Staphylococcus aureus superficial folliculitis 0 04/25/2016 Encounters Date Type Department Care Team Description 10/14/2024 Refill [facility] - [facility] - [place] [address] [place] [address] Jass Mckeon MD Medication Refill from Last 3 Months Immunizations Immunization Administration Dates Next Due Influenza Vaccine 06/01/2013 Family History Medical History Relation Name Comments Diabetes Father Kidney Cancer Father Breast Cancer Maternal Aunt 1 Breast Cancer Maternal Aunt 2 Breast Cancer Mother Diabetes Mother Ovarian Cancer Mother Rheumatoid Arthritis Paternal Grandfather Relation Name Status Comments Father Alive Maternal Aunt 1 Maternal Aunt 2 Mother Alive Paternal Grandfather Social History Tobacco Use Types Packs/Day Years Used Date Smoking Tobacco: Some Days Smokeless Tobacco: Never Tobacco Cessation:Ready to Q uit: Not Asked; Counseling Given: Not Answered Comments:SMOKES ONE CIGARETTE A DAY Alcohol Use Standard Drinks/Week Comments Yes 0 (1 standard drink = 0.6 oz pur e alcohol) rarely Comments No Sex and Gender Information Value Date Recorded Sex Assigned at Not on file Legal Sex Female 9:42 PM CDT Gender Identity Not on file Sexual Orientation Not on file Last Filed Vital Signs Vital Sign Reading Time Taken Comments Blood Pressure 122/74 06/13/2024 10:45 AM CDT Pulse 102 03/09/2024 3:35 PM CDT Temperature 37.1 C (98.7 F) 06/13/2024 10:45 AM CDT Respiratory Rate 20 03/09/2024 3:35 PM CDT Oxygen Saturation 97% 06/13/2024 10: 45 AM CDT Inhaled Oxygen Concentration - - Weight 100.8 kg (222 lb 3.2 oz) 024 10:45 AM CDT Height 172.7 cm (5' 8 ) 03/09/2024 3:35 PM CDT Body Mass Index 33.79 03/09/2024 3:35 PM CDT Plan of Treatment Upcoming Encounters Date Type Department Care Team (Late st Contact Info) Description 10/25/2024 3:45 PM CDT Office Visit [facility] - [place] [address] [place] [id number] Jass Mckeon MD [address] [address] Health Maintenance Due Date Last Done Comments Diabetes: Foot Exam 1962 Hepatitis C Virus (HCV) Screening 1962 TdaP Immunization 1962 Pneumococcal Immunization (50+ years) (1 of 2 - PCV) 1981 Pap Smear 12/22/1983 Cervical Cancer Screening (CCS) 1992 HPV/Cotest 1992 Colonoscopy 12/22/2007 Colorectal Cancer Screening 12/22/2007 Cologuard 2012 Immunochemical Fecal Occult Blood 2012 Zoster Immunization (1 of 2) 2012 Diabetes: Nephropathy Screening 09/13/2020 09/13/2019, 09/10/2017, 07/28/2017 Respiratory Syncytial Virus (RSV) Immunization (Adult) (1 - Risk 60-74 years 1-dose series) 2022 Influenza Immunization (#1) 2024 06/01/2013 SARS-COV-2 Immunization ( season) 2024 12/26/2020, 11/28/2020 Diabetes: Eye Exam 10/25/2024 10/26/2023, 10/01/2017 Diabetes: Hemoglobin A1c 12/12/2024 024, 05/06/2024, 02/04/2024, Additional history exists Mammogram Unilateral Discontinued 05/26/2016, 09/21/19 13 Hepatitis B Immunization Aged Out No longer eligible based on patient's age to complete this topic Meningococcal Immunization (ACWY) Aged Out No longer eligible based on patient's age to complete this topic Rotavirus Immunization Aged Out No lo nger eligible based on patient's age to complete this topic Procedures Procedure Name Priority Date/Time Associated Diagnosis Comments POCT GLYCOSYLATED HEMOGLOBIN Routine 06/13/2024 10:47 AM CDT Type 2 diabetes mellitus with diabetic polyneuropathy, with long-term current use of insulin (HCC) CMP (COMPREHENSIVE METABOLIC PANEL) Routine 09/13/2019 Type 2 diabetes mellitus with diabetic polyneuropathy, with long-term current use of insulin (HCC) STEPHANIE DIAG BILATERAL DIGITAL W CAD Routine 05/26/2016 10:15 AM CDT Axillary mass, left from Last 3 Months or Most Recently Relevant to Health Maintenance Results * (ABNORMAL) POCT GLYCOSYLATED HEMOGLOBIN (06/13/2024 10:47 AM CDT) HGB-A1C 6.6(A) 4 - 6 % Blood 06/13/2024 10:4 7 AM CDT us Jass Mckeon MD POINT OF CARE TESTING (MANUAL) F inal Result * CMP (COMPREHENSIVE METABOLIC PANEL) (09/13/2019) Blood specimen (specimen) us Jass Mckeon MD CHEMISTRY ORDERABLES Final Resul t * STEPHANIE DIAG BILATERAL DIGITAL W CAD (05/26/2016 10:15 AM CDT) Anatomical Region Laterality Modality breast Bilateral Mammography 05/26/2016 9:36 AM CDT Narrative 05/27/2016 7:45 AM CDT - STEPHANIE DIAG BILATERAL DIGITAL W CAD - STEPHANIE US BREAST LIMITED LT BILATERAL DIGITAL DIAGNOSTIC MAMMOGRAM WITH CAD AND TARGETED LEFT ULTRASOUND WITH MEDIOLATERAL OBLIQUE CRANIOCAUDAL: 05/26/2016 The study was acquired using digital technology and interpreted from soft copy. Current study was also evaluated with ICAD version 7.2. CLINICAL: Diagnostic study. Patient has history of kidney and intestinal cancer. Palpable lump left axilla. Two maternal aunt's had breast cancer. COMPARISONS: Comparison is made to exams dated: 03/31/2013, 09/21/2012, 12/17/2011, 04/23/2011, 04/22/2011, and 04/22/2011. BREAST TISSUE:The tissue of both breasts is predominantly fatty. FINDINGS: Ultrasound of the left axilla was performed of the palpable abnormalities as indicated by the patient. There are several subcutaneous, cystic lesions in the area of concern. The largest measures 9 mm x 6 mm x 4 mm, with a small tract to the skin surface, consistent with a benign sebaceous cyst. Color flow imaging demonstrates that there is no increase in vascularity. No other significant masses, calcifications, or other findings are seen in either breast on the mammogram or left targeted ultrasound. IMPRESSION: OVERALL STUDY BIRADS: 3 PROBABLY BENIGN The multiple palpable subcutaenous cysts are probably benign. At least one of these meets criteria for a benign sebaceous cyst. A follow-up ultrasound in 6 months is recommended to demonstrate stability. The patient has been or will be contacted. Ruth Ann Garza M.D. rb/:05/26/2016 11:18:35 Mapping Specialist: Janae Stewart(Amanda), [facility] letter sent: Normal Exam Reading location: [facility] OVERALL STUDY BIRADS: 3 Probably benign Procedure Note Ruth Ann Garza MD - 05/27/2016 - STPEHANIE DIAG BILATERAL DIGITAL W CAD - STEPHANIE US BREAST LIMITED LT BILATERAL DIGITAL DIAGNOSTIC MAMMOGRAM WITH CAD AND TARGETED LEFT ULTRASOUND WITH MEDIOLATERAL OBLIQUE CRANIOCAUDAL: 05/26/2016 The study was acquired using digital technology and interpreted from soft copy. Current study was also evaluated with ICAD version 7.2. CLINICAL: Diagnostic study. Patient has history of kidney and intestinal cancer. Palpable lump left axilla. Two maternal aunt's had breast cancer. COMPARISONS: Comparison is made to exams dated: 03/31/2013, 09/21/2012, 12/17/2011, 04/23/2011, 04/22/2011, and 04/22/2011. BREAST TISSUE:The tissue of both breasts is predominantly fatty. FINDINGS: Ultrasound of the left axilla was performed of the palpable abnormalities as indicated by the patient. There are several subcutaneous, cystic lesions in the area of concern. The largest measures 9 mm x 6 mm x 4 mm, with a small tract to the skin surface, consistent with a benign sebaceous cyst. Color flow imaging demonstrates that there is no increase in vascularity. No other significant masses, calcifications, or other findings are seen in either breast on the mammogram or left targeted ultrasound. IMPRESSION: OVERALL STUDY BIRADS: 3 PROBABLY BENIGN The multiple palpable subcutaenous cysts are probably benign. At least one of these meets criteria for a benign sebaceous cyst. A follow-up ultrasound in 6 months is recommended to demonstrate stability. The patient has been or will be contacted. Ruth Ann Garza M.D. rb/:05/26/2016 11:18:35 Mapping Specialist: Janae Stewart(Amanda), [facility] letter sent: Normal Exam Reading location: [facility] OVERALL STUDY BIRADS: 3 Probably benign Jovan Sneed MD IMG MAMMO ORDERABLES Sandra l Result from Last 3 Months or Most Recently Relevant to Health Maintenance Insurance MEDICARE C [facility] Care Teams Winter Sports Manager Relationship Specialty Start Date End Date Mickey Raphael PAC [address] [place] [id number] PCP - General Physician Tram Operator 04/23/16 Jovan Sneed MD [address] [address] General Surgery 05/12/16 Jass Mckeon MD #[address] [phone] Consulting Physician Endocrinology 02/18/22 Jass Mckeon MD [address] [phone] Consulting Physician Endocrinology 03/05/23
--- OUTSIDE RECORDS SUMMARY | 2024-10-21 08:00 | XMS_ITS | Referral Summary ---
Author Organization [facility] Address [address] [place] [address] Care Team Providers Care Racebook Writer Name Role Phone Mickey Raphael Primary Care Provider [phone] Angeles James MD Unavailable Kevin Zepeda MD Unavailable [phone] Johanna Perez OT Unavailable [phone] Amaury Ornelas MD Unavailable Encounters Date Type Department Care Team Description 10/07/2024 8:13 AM [facility] - 10/07/2024 11:59 PM [facility] Hospital Encounter [facility], [address] [address] Katie Davis NP Cervicalgia (Primary Dx); Neuralgia Discharge Disposition: Discharge to home or self care 09/26/2024 1:16 PM [facility] - 09/26/2024 7:01 PM [facility] Emergency [facility] Emergency Department [address] [place] [address] Discharge Disposition: Left without being seen 09/01/2024 7:35 AM [facility] - 09/01/2024 11:59 PM [facility] Hospital Encounter [facility] 2 [facility], [address] [address] Katie Davis NP Cervical neuritis Discharge Disposition: Discharge to home or self care 08/04/2024 Telephone [facility] [address] [place] [phone] Missy Koo PA 08/04/2024 10:06 AM [facility] - 08/04/2024 11:59 PM [facility] Hospital Encounter [facility] Center [address] [place] [address] Cervical neuritis Discharge Disposition: Discharge to home or self care 08/02/2024 Telephone [facility]oped[facility] Sports Medicine [address] [facility] [address] [place] [address] Missy Koo PA 08/02/2024 Orders Only [facility] [address] [facility] [address] [place] [address] Missy Koo PA Cervical neuritis (Primary Dx) 07/28/2024 9:05 AM [facility] Ancillary Procedure [facility] Imaging at [address] [phone] Cervical neuritis 07/28/2024 8:30 AM [facility] Office Visit [facility] Medical [facility] Medicine [address] [place] [phone] Missy Koo PA Cervical neuritis (Primary Dx); S/P arthroscopy of left shoulder; Adhesive capsulitis of left shoulder from Last 3 Months Allergies Active Allergy Reactions Criticality Noted Date Comments Codeine Nausea & Vomiting Low 04/09/2023 Hydrocodone-Acetamino phen Nausea & Vomiting Low 04/09/2023 Iodinated Contrast Media Other (See comments) Low 06/10/2011 Avoid secondary to Kidney Cancer (no true allergy). No Allergy to Iodinated Contrast Media. Iodine Other (See comments) Low 04/25/2016 Patient says she is not supposed to use iodine because of her kidney cancer. Pt does not have an allergy. Morphine Nausea & Vomiting Low 05/15/2016 Medications lancets 33 gauge misc Inject under the skin 2 (two) times a day. 0 05/28/20 Active ONETOUCH ULTRA TEST strip Inject under the skin 2 (two) times a day. 05/28/20 17 Active lisinopril-hydroCH LOROthiazide (PRINZIDE,ZESTORET IC) 20-25 mg per tabletIndications: hypertension TAKE 1 TABLET BY MOUTH EVERY DAY in the morning for blood pressure 1 12/24/19 18 Active pen needle, diabetic 32 gauge x 5/32 needle BD Josie 2nd Gen Pen Needle 32 gauge x 5/32 Active blood glucose diagnostic strip Test sugars if patients feel they are having a low or high blood sugar 12/24/19 19 Active pen needle, diabetic 32 gauge x 5/32 needle BD Josie 2nd Gen Pen Needle 32 gauge x 5/32 USE WITH INSULIN TWICE A DAY Active oxybutynin XL (DITROPAN-XL) 10 mg 24 hr tablet Take 1 tablet (10 mg total) by mouth daily 30 tablet 11 06/06/20 22 Active diphenoxylate-atro pine (LOMOTIL) 2.5-0.025 mg per tablet 07/03/20 22 Active OneTouch Ultra2 Meter misc as directed 06/23/20 22 Active omeprazole (PriLOSEC) 20 mg capsule Take 1 capsule (20 mg total) by mouth daily Active latanoprost (XALATAN) 0.005 % ophthalmic solution Administer 1 drop into both eyes daily 03/23/20 23 Active FENOFIBRATE MICRONIZED ORAL daily Pt doesn't know dose Active insulin regular U-500 (HumuLIN R) 500 unit/mL CONCENTRATED vial for injectionIndicatio ns:Diabetes Mellitus with Severe Insulin Resistance Inject under the skin 180 units in the am, 70 units at lunch and 80 units at dinner Active ascorbic acid (VITAMIN C) 500 mg tablet,chewable Take 1 tablet/chew tab (500 mg total) by mouth 2 (two) times a day 60 tablet/chew tab 06/15/20 24 Active cholecalciferol (VITAMIN D-3) 2000 unit capsule Take 1 capsule (2,000 Units total) by mouth daily 30 capsule 06/15/20 24 Active ondansetron ODT (ZOFRAN-ODT) 4 mg disintegrating tablet Take 1 tablet (4 mg total) by mouth every 6 (six) hours as needed for nausea or vomiting 10 tablet 06/15/20 24 Active oxyCODONE-acetamin ophen (PERCOCET) 5-325 mg per tabletIndications: Pain Take 1-2 tablets by mouth every 4 (four) hours as needed for pain 30 tablet 06/15/20 24 Active senna-docusate (PERICOLACE) 8.6-50 mg Take 1-2 tablets daily prn for constipation 30 tablet 06/15/20 24 Active gabapentin (NEURONTIN) 100 mg capsule Take 1-3 capsules (100-300 mg total) by mouth 3 (three) times a day as needed (for nerve pain) 90 capsule 06/28/20 24 Active ALPRAZolam (XANAX) 1 mg tablet Take 1 tablet (1 mg total) by mouth once for 1 dose Take 30 minutes prior to MRI. Do not drive after taking medication. 1 tablet 08/03/20 24 Active zolpidem (AMBIEN) 10 mg tablet Take 1 tablet (10 mg total) by mouth nightly at bedtime 08/19/19 25 Active atorvastatin (LIPITOR) 40 mg tablet Take 1 tablet (40 mg total) by mouth daily 08/19/19 25 Active Ozempic 0.25 mg or 0.5 mg (2 mg/3 mL) pen injector injection 0.25 MG UNDER THE SKIN WEEKLY FOR 4 WEEK AND 0.5 MG WEEKLY FOR 4 WEEKS 08/19/19 25 Active pregabalin (LYRICA) 50 mg capsule Take 1 capsule (50 mg total) by mouth 2 (two) times a day 60 capsule 5 10/07/19 25 025 Active pregabalin (LYRICA) 50 mg capsule Take 1 capsule (50 mg total) by mouth 2 (two) times a day 60 capsule 09/01/19 25 025 Discontin ued(Reord er) Active Problems Problem Noted Date Diagnosed Date Shoulder impingement, unspecified laterality Biceps tendonitis on left 06/02/2024 Arthritis of left acromioclavicular joint 2023 Nontraumatic incomplete tear of left rotator cuf f 06/02/2024 Adhesive capsulitis of left shoulder 06/02/2024 Primary osteoarthritis of fi rst carpometacarpal joint of left hand 10/16/2021 Overview (10/16/2021): Added automatically from request for surgery [id number] Carpal tunnel syndrome, left 10/16/2021 Overview (10/16/2021): Added automatically from request for surgery [id number] Blood in urine 07/17/2021 Malignant neoplasm of [...] 08/25/2017 Assessment & Plan (08/25/2017 11:22 PM [facility]OOK): BMI Follow-up includes: nutrition counseling, exercise counseling and education provided. Hypertension 08/04/2017 Overview (08/04/2017): Will continue home medications. Blood pressure is controlled. Assessment & Plan (11/10/2017 10:10 AM CDT): Well controlled. Assessment & Plan (08/25/2017 11:23 PM [facility]OOK): Hypertension is well controlled on lisinopril-HCTZ. Assessment & Plan (08/04/2017 10:07 AM [facility]OOK): Will continue home medicines. Blood pressure is [...] root lesion 06/25/2012 Feces contents abnormal 02/23/2012 Resolved Problems Problem Noted Date Diagnosed Date Resolved Date De Quervain's tenosynovitis 10/16/2021 04/09/2023 Overview (10/16/2021): Added automatically from request for surgery [id number] Abdominal mass 07/17/2021 04/09/2023 Acute folliculitis 07/17/2021 [...] (11/18/2018): Added automatically from request for surgery [id number] Angina at rest 08/04/2017 04/09/2023 Assessment & Plan (08/04/2017 6:20 PM [facility] PREP COOK): Patient does not have any history of coronary artery disease. So far ruled out for acute UT. stress echocardiogram exercise test was normal. Patient has known multiple risk factors including: postmenopausal, diabetes, hypertension, dyslipidemia, family history of UT. Recommending to take daily baby aspirin, good diabetes control, follow up with primary care physician, the see a shock absorption floor layer if chest pain continues. Most likely her [...] 110. Assessment & Plan (08/25/2017 11:28 PM [facility]ET PREP COOK): 56 years old female with history of [...] weeks. Assessment & Plan (08/04/2017 10:23 AM [facility]OOK): She takes metformin and basal insulin at [...] 04/09/2023 Melena 02/23/2012 04/09/2023 Leukocytosis 06/20/2011 04/09/2023 Immunizations Immunization Administration Dates Next Due Influenza, Trivalent, Preservative Free, Intramu scular 06/01/2013 Social History Tobacco Use Types Packs/Day Years Used Date Smoking Tobacco: Every Day Cigarettes 0.1 41.2 Started: 1983 Smokeless Tobacco: Never Tobacco Cessation:Ready to Q uit: Not Asked; Counseling Given: Not Answered Comments:social smoker, less than 1 pack per month Alcohol Use Standard Drinks/Week Comments Not Currently 0 (1 standard drink = 0.6 oz pur e alcohol) AUDIT-C Answer Date Recorded Q1: How often do you have a drink containing alcohol? Never 06/15/2024 Q2: How many drinks containi ng alcohol do you have on a typical day when you are drinking? Patient does not drink Q3: How often do you have si x or more drinks on one occasion? Never 06/15/2024 PHQ-2 Answer Date Recorded PHQ-2 Total Score (If total score is 3 or more points, staff should administer the PHQ-9) 5 09/01/2024 Personal Safety Answer Date Recorded Have you ever been in or are you currently in a harmful physical or emotional relationship or is someone making you feel afraid or unsafe? Denies 09/26/2024 Comments No Sex and Gender Information Value Date Recorded Sex Assigned at Not on file Legal Sex Female 11:52 PM [facility] Gender Identity Not on file Sexual Orientation Not on file Last Filed Vital Signs Vital Sign Reading Time Taken Comments Blood Pressure 138/79 10/07/2024 8:29 AM [facility] Pulse 75 10/07/2024 8:29 AM [facility] Temperature 36.3 C (97.4 F) 09/26/2024 1:31 PM [facility] Respiratory Rate 18 10/07/2024 8:29 AM [facility] Oxygen Saturation 99% 10/07/2024 8:29 AM [facility] Inhaled Oxygen Concentration - - Weight 104.3 kg (230 lb) 09/26/2024 1:31 PM [facility] Height 172.7 cm (5' 8 ) 07/28/2024 8:29 AM [facility] Body Mass Index 34.97 07/28/2024 8:29 AM [facility] Plan of Treatment Not on file Medical Devices Implanted Type Area Acid Pumper Device Identifier Shelf Expiration Date Model / Serial / Lot [employer] Ar-[id number] Dx Swivelock Sl 3.5mm 8.5mm Fork Eyelet [place] Suture Sterile - [id number] Implanted:Qty: 1 on 11/04/2021 by Rodger Ramachandran MD at [facility] Left: Wrist [employer] 05/16/2026 AR-[id number] / / [id number] [employer] Ar-[id number] Arthrex Dx Fibertak Needle [place] Suture Sterile Latex Free - [id number] Implanted:Qty: 1 on 11/04/2021 by Rodger Ramachandran MD at [facility] Left: Wrist [employer] 06/16/2026 AR-[id number] / / [id number] Procedures Procedure Name Priority Date/Time Associated Diagnosis Comments XR CHEST 1 VIEW ED 09/26/2024 1:49 PM [facility] MRI CERVICAL SPINE WO CONTRAST Schedule Routine, Read Routine (OP Routine) 08/04/2024 11:59 AM [facility] Cervical neuritis XR SPINE CERVICAL 2 OR 3 VIEWS Schedule Routine, Read Routine (OP Routine) 07/28/2024 9:11 AM [facility] Cervical neuritis HEMOGLOBIN A1C Routine 05/06/2024 3:24 PM CDT EGFR Routine 11/27/2020 7:05 AM CDT LIPID PANEL Routine 11/11/2017 5:37 AM CDT COLONOSCOPY REPORT 05/29/2015 from Last 3 Months or Most Recently Relevant to Health Maintenance Results * XR Chest 1 Vw Portable (09/26/2024 1:49 PM [facility]) Anatomical Region Laterality Modality Body, Chest N/A Computed Radiogr aphy 09/26/2024 2:07 PM [facility] Narrative 09/26/2024 2:08 PM [facility] EXAM DESCRIPTION: XR CHEST 1 VIEW REASON FOR STUDY: cough Pt arrives to ED via POV for SOB x this morning. Pt states she was dx with influenza a 1 week ago. Pt states she has been worsening. Pt also c/o diarrhea. TECHNIQUE: Single frontal radiographic view(s) of the chest. COMPARISON: 06/08/2019 FINDINGS: The heart, mediastinum, and pulmonary vasculature are grossly stable. There is no definite evidence of a pneumothorax. There is no definite evidence of a focal consolidation or pleural effusion. The osseous structures are acutely grossly stable. IMPRESSION: No acute cardiopulmonary abnormality. THIS IS AN ELECTRONICALLY VERIFIED FINAL REPORT 09/26/2024 2:08 PM - Electronically signed by Ryan Hahn D.O. PS: PS Report ID: [id number] Reading Location: [id number] Procedure Note Ryan Hahn, DO - 09/26/2024 EXAM DESCRIPTION: XR CHEST 1 VIEW REASON FOR STUDY: cough Pt arrives to ED via POV for SOB x this morning. Pt states she was dx with influenza a 1 week ago. Pt states she has been worsening. Pt also c/o diarrhea. TECHNIQUE: Single frontal radiographic view(s) of the chest. COMPARISON: 06/08/2019 FINDINGS: The heart, mediastinum, and pulmonary vasculature are grossly stable.There is no definite evidence of a pneumothorax. There is no definite evidenceof a focal consolidation or pleural effusion. The osseous structures are acutely grossly stable. IMPRESSION: No acute cardiopulmonary abnormality. THIS IS AN ELECTRONICALLY VERIFIED FINAL REPORT 09/26/2024 2:08 PM - Electronically signed by Ryan Hahn D.O. PS: PS Report ID: [id number] Reading Location: [id number] us Jose Dale MD IMG XR PROCEDURES Final Resu lt * MRI Cervical Spine WO Contrast (08/04/2024 11:59 AM [facility]) Anatomical Region Laterality Modality Spine N/A Magnetic Resonan ce 08/04/2024 12:0 2 PM [facility] Narrative 08/04/2024 12:09 PM [facility] EXAM DESCRIPTION: MRI CERVICAL SPINE WO CONTRAST REASON FOR STUDY: Provided history: 06/15/2024 pt had left shoulder surgery and went home with her nerve ayaan leaking; pt was told to pull it out and ever since her neck has constant tingling (when your limbs go numb and getting feeling back) and is also very sensitive to touch; creates a hot sensation on the left side of her neck. TECHNIQUE: Sagittal and axial imaging of the cervical spine includes T1, T2, STIR and gradient echo sequences. Images saved to PACS. COMPARISON: Cervical spine radiograph 07/28/2024 and 03/03/2020; CTA head/neck without and with contrast 03/19/2020. FINDINGS: ALIGNMENT: Normal. VERTEBRAE: No MR evidence of acute-subacute fracture. Vertebral body heights unchanged. Spondylosis. Marrow signal within normal limits. DISCS: Multilevel variable intervertebral disc desiccation and loss of intervertebral disc height of the visualized cervicothoracic spine. HARDWARE: None in the cervical spine. CORD: Normal in size and signal intensity. INDIVIDUAL LEVELS: C1-C2: No spinal canal stenosis. C2-C3: No diffuse disc bulge or focal herniation. No spinal canal stenosis. No neural foraminal stenosis. C3-C4: No diffuse disc bulge or focal herniation. Bilateral hypertrophic facet arthropathy. No spinal canal stenosis. No neural foraminal stenosis. C4-C5: Shallow central disc protrusion slightly indenting the ventral thecal sac. Bilateral hypertrophic facet arthropathy. Bilateral uncovertebral joint disease. No spinal canal stenosis. No neural foraminal stenosis. C5-C6: Mild posterior disc osteophyte complex with small central disc protrusion indenting the ventral thecal sac. Bilateral hypertrophic facet arthropathy. Bilateral uncovertebral joint disease. With MPR analysis, mild spinal canal stenosis. No neural foraminal stenosis. C6-C7: Posterior disc osteophyte complex with posterior maximal annular disc bulge indenting the ventral thecal sac. Bilateral hypertrophic facet arthropathy. Bilateral uncovertebral joint disease. With MPR analysis, mild-moderate spinal canal stenosis. Bilateral neural foraminal stenosis. C7-T1: No diffuse disc bulge or focal herniation. No spinal canal stenosis. No neural foraminal stenosis. BASE OF BRAIN: No significant finding. UPPER THORACIC: Incompletely imaged. No significant spinal stenosis or foraminal stenosis. OTHER: None. IMPRESSION: Spondylosis and degenerative disc disease of the cervical spine as detailed level by level above. THIS IS AN ELECTRONICALLY VERIFIED FINAL REPORT 08/04/2024 12:09 PM - Electronically signed by Mani Ann M.D. DASHA: DASHA Report ID: [id number] Reading Location: [place] [id number] Procedure Note Mani Ann MD - 08/04/2024 EXAM DESCRIPTION: MRI CERVICAL SPINE WO CONTRAST REASON FOR STUDY: Provided history: 06/15/2024 pt had left shouldersurgery and went home with her nerve ayana leaking; pt was told to pull it outand ever since her neck has constant tingling (when your limbs go numb andgetting feeling back) and is also very sensitive to touch; creates a hot sensationon the left side of her neck. TECHNIQUE: Sagittal and axial imaging of the cervical spine includes T1,T2, STIR and gradient echo sequences. Images saved to PACS. COMPARISON: Cervical spine radiograph 07/28/2024 and 03/03/2020; CTA head/neck without and with contrast 03/19/2020. FINDINGS: ALIGNMENT: Normal. VERTEBRAE: No MR evidence of acute-subacute fracture. Vertebral body heights unchanged. Spondylosis. Marrow signal within normal limits. DISCS: Multilevel variable intervertebral disc desiccation and loss of intervertebral disc height of the visualized cervicothoracic spine. HARDWARE: None in the cervical spine. CORD: Normal in size and signal intensity. INDIVIDUAL LEVELS: C1-C2: No spinal canal stenosis. C2-C3: No diffuse disc bulge or focal herniation. No spinal canalstenosis. No neural foraminal stenosis. C3-C4: No diffuse disc bulge or focal herniation. Bilateralhypertrophic facet arthropathy. No spinal canal stenosis. No neural foraminalstenosis. C4-C5: Shallow central disc protrusion slightly indenting the ventralthecal sac. Bilateral hypertrophic facet arthropathy. Bilateral uncovertebraljoint disease. No spinal canal stenosis. No neural foraminal stenosis. C5-C6: Mild posterior disc osteophyte complex with small central disc protrusion indenting the ventral thecal sac. Bilateral hypertrophic facet arthropathy. Bilateral uncovertebral joint disease. With MPR analysis,mild spinal canal stenosis. No neural foraminal stenosis. C6-C7: Posterior disc osteophyte complex with posterior maximal annulardisc bulge indenting the ventral thecal sac. Bilateral hypertrophic facet arthropathy. Bilateral uncovertebral joint disease. With MPR analysis, mild-moderate spinal canal stenosis. Bilateral neural foraminal stenosis. C7-T1: No diffuse disc bulge or focal herniation. No spinal canalstenosis. No neural foraminal stenosis. BASE OF BRAIN: No significant finding. UPPER THORACIC: Incompletely imaged. No significant spinal stenosis or foraminal stenosis. OTHER: None. IMPRESSION: Spondylosis and degenerative disc disease of the cervical spine asdetailed level by level above. THIS IS AN ELECTRONICALLY VERIFIED FINAL REPORT 08/04/2024 12:09 PM - Electronically signed by Mani Ann M.D. DASHA: DASHA Report ID: [id number] Reading Location: [id number] Missy MCKAY IMG MRI PROCEDURES Sandra l Result * XR Spine Cervical 2 or 3 Views (07/28/2024 9:11 AM [facility]) Anatomical Region Laterality Modality Spine N/A Digital Radiogra phy 07/31/2024 1:51 PM [facility] Narrative 07/31/2024 1:52 PM [facility] EXAM DESCRIPTION: XR SPINE CERVICAL 2 OR 3 VIEWS REASON FOR STUDY: pain Pt complains of left posterior to anterior neck pain since her shoulder surgery x 2 months ago. No injury or surgery to neck FINDINGS: Two views submitted with comparison 03/03/2020. No acute fractures are identified. Alignment is normal. There is no prevertebral soft tissue swelling. There is mild C5-C6 and moderate C6-C7 degenerative disc disease. There is bilateral cervical facet osteoarthritis. IMPRESSION: Mild C5-C6 and moderate C6-C7 degenerative disc disease with bilateral cervical facet osteoarthritis. THIS IS AN ELECTRONICALLY VERIFIED FINAL REPORT 07/31/2024 1:52 PM - Electronically signed by Jovan COOL T: Report ID: [id number] Reading Location: [id number] Procedure Note Jovan Junior MD - 07/31/2024 EXAM DESCRIPTION: XR SPINE CERVICAL 2 OR 3 VIEWS REASON FOR STUDY: pain Pt complains of left posterior to anterior neck pain since her shoulder surgery x 2 months ago. No injury or surgery to neck FINDINGS: Two views submitted with comparison 03/03/2020. No acute fractures are identified. Alignment is normal. There is no prevertebral soft tissue swelling. There is mild C5-C6 and moderate C6-C7 degenerative disc disease. There is bilateral cervical facetosteoarthritis. IMPRESSION: Mild C5-C6 and moderate C6-C7 degenerative disc disease with bilateral cervical facet osteoarthritis. THIS IS AN ELECTRONICALLY VERIFIED FINAL REPORT 07/31/2024 1:52 PM - Electronically signed by Jovan Junior M.D. T: Report ID: [id number] Reading Location: [place] [id number] us Missy MCKAY IMG XR PROCEDURES Final Result * (ABNORMAL) Hemoglobin A1c (05/06/2024 3:24 PM CDT) Hgb A1C 6.9(H) 4.0 - 5.6 % Estimated Average Glucose 151 mg/dL TIM CASTRO) Comment: The ADA recommends reporting an estimated Average Glucose (eAG) with all Hemoglobin A1c results using the equation derived from a study of 507 normal and diabetic adults. Minority populations were underrepresented and children were not included. (Diabetes Care 31:8802-7529, 2008). The eAG is not equivalent to a fasting glucose. Blood 05/06/2024 3:24 PM CDT 05/06/2024 3:34 PM CDT us Jass Mckeon MD LAB BLOOD ORDERABLES Final Resul t TIM SUTTON (CINDY) [address] [facility] Department of Laboratories [place], [place] [id number] * eGFR (11/27/2020 7:05 AM CDT) Pathologist [facility] eGFR 100 mL/min/1.7 3 m2 TIM SUTTON (CINDY) Comment: Interpretive Data Reference Interval Normal >/= 90 mL/min/1.73m2 Mildly decreased* 60 - 89 mL/min/1.73m2 Mildly to moderately decreased 45 - 59 mL/min/1.73m2 Moderately to severely decreased 30 - 44 mL/min/1.73m2 Severely decreased 15 - 29 mL/min/1.73m2 Kidney Failure < 15 mL/min/1.73m2 *Relative to young adult level Estimated glomerular filtration rate is determined by the CKD-EPI equation recommended by the National Kidney Foundation (KDIGO 2012 Clinical Practice Guideline for the Evaluation and Management of Chronic Kidney Disease. Kidney Intnl Suppl Aug 2012;3:1). The CKD-EPI equation should not be used for patients with unstable renal function and has not been validated in children and those over 70. Current interpretive data was last reviewed 2020 Blood specimen (specimen) 11/27/2020 7:05 AM CDT 11/27/2020 7:51 AM CDT Mickey MCKAY LAB BLOOD ORDERABLES Final Re sult TIM SUTTON (CINDY) [address] [facility] [place] [address] * (ABNORMAL) Lipid panel (11/11/2017 5:37 AM CDT) Cholesterol 169 40 - 199 mg/dL TIM SUTTON (CINDY) Comment: Interpretive Data Desirable: Less than 200 mg/dl Borderline High: 200 - 239 mg/dl High: Greater than 239 mg/dl Current interpretive data was last revised on 2014. Triglycerides 215.0(H) <=150.0 mg/dL TIM SUTTON (CINDY) Comment: Interpretive Data Normal: Less than 150 mg/dl Borderline high: 150-199 mg/dl High: 200-499 mg/dl Very high: Greater than or equal to 500 mg/dl Current interpretive data was last revised on 2017. HDL 37(L) 40 - 60 mg/dL TIM SUTTON (CINDY) Comment: Interpretive Data Low HDL Cholesterol: Less than 40 mg/dl Normal HDL Cholesterol: 40-60 mg/dl High HDL Cholesterol: Greater than 60 mg/dl Current interpretive data was last revised on 2014. LDL, calculated 89 mg/dL OMARI SUTTON (CINDY) Comment: Interpretive Data Optimal Less than 100 mg/dL Near optimal/Above optimal 100 - 129 mg/dL Borderline high 130 - 159 mg/dL High 160 - 189 mg/dL Very high Greater than or = 190 mg/dL LDL values are not valid when the total Triglyceride is greater than 300 mg/dL. Current interpretive data was last revised on 2014. Non-HDL Cholesterol 132 mg/dL TIM SUTTON (CINDY) Comment: Interpretive Data Optimal Less than 130 mg/dL Low Risk 130 - 159 mg/dL Moderate Risk 160 - 189 mg/dL High Risk Greater than or equal to 190 mg/dL Current interpretive data was last revised on 2014. Blood specimen (specimen) 11/11/2017 5:37 AM CDT 11/11/2017 6:05 AM CDT Narrative TIM SUTTON (CINDY) - 11/11/2017 7:07 AM CDT Patient was not fasting Tamara Bradford MD LAB BLOOD ORDERABLES Final Re sult TIM SUTTON (CINDY) 1 [facility] [place] [address] * COLONOSCOPY REPORT (05/29/2015) Anatomical Region Laterality Modality Other Narrative 05/29/2015 Ordered by an unspecified provider. Historical Provider GI PROCEDURE ORDERABLES F inal Result from Last 3 Months or Most Recently Relevant to Health Maintenance Insurance MEDICARE SOLUTIONS MEDICARE SOLUTIONS MEDICARE SOLUTIONS Advance Directives For more information, please contact: [phone] Documents on File Type Date Recorded Patient Clinical Research Spec Expl anation ADVANCE DIRECTIVE 04/15/2017 Advance Di rective Checklist * Full Code (Latest Code Status on File) Date Activated Date Inactivated Comments 11/09/2017 6:43 PM 11/11/2017 8:43 PM * Full Code Date Activated Date Inactivated Comments 08/03/2017 6:24 PM 08/05/2017 12:42 AM Care Teams Racebook Writer Relationship Specialty Start Date End Date Mickey Raphael PA [address] [place] [address] PCP - General 11/30/17 Angeles James MD [address] [place] [address] Medical Oncologist/Cement Grinding Mill Operator Medical Oncology 03/04/18 [place] [address] [place] [address] [facility] 02/23/19 [place] [address] [facility] [address] [place] [address] Occupational Therapist Occupational Therapy 12/05/21 Amaury Ornelas MD [address] [place] [address] [facility] [address] [place] [address] Consulting Physician Anesthesiology 10/07/24
--- OUTSIDE RECORDS SUMMARY | 2024-10-21 08:00 | XMS_ITS | Clinical Summary ---
Author Organization [facility] Address [address] [place] [address] Care Team Providers Care [employer] Football Coach Name Role Phone Mickey Raphael Primary Care Provider Angeles James MD Unavailable Kevin Zepeda MD Unavailable Johanna Perez OT Unavailable Amaury Ornelas MD Unavailable [phone] Allergies Active Allergy Reactions Criticality Noted Date [...] 2 (two) times a day. 0 05/28/20 17 Active ONETOUCH ULTRA TEST strip Inject under [...] (10/16/2021): Added automatically from request for surgery [id number] Carpal tunnel syndrome, left 10/16/2021 Overview (10/16/2021): Added automatically from request for surgery [id number] Blood in urine 07/17/2021 Malignant neoplasm of [...] 08/25/2017 Assessment & Plan (08/25/2017 11:22 PM RECOVERY MANAGER): BMI Follow-up includes: nutrition counseling, exercise counseling and education provided. Hypertension 08/04/2017 Overview (08/04/2017): Will continue home medications. Blood pressure is controlled. Assessment & Plan (11/10/2017 10:10 AM CDT): Well controlled. Assessment & Plan (08/25/2017 11:23 PM RECOVERY MANAGER): Hypertension is well controlled on lisinopril-HCTZ. Assessment & Plan (08/04/2017 10:07 AM RECOVERY MANAGER): Will continue home medicines. Blood pressure is [...] (10/16/2021): Added automatically from request for surgery [id number] Abdominal mass 07/17/2021 04/09/2023 Acute folliculitis 07/17/2021 3 Backache 07/17/2021 04/09/2023 Furuncle of thigh 07/17/2021 [...] (11/18/2018): Added automatically from request for surgery [id number] Angina at rest 08/04/2017 04/09/2023 Assessment & Plan (08/04/2017 6:20 PM RECOVERY MANAGER): Patient does not have any history of coronary artery disease. So far ruled out for acute DE. stress echocardiogram exercise test was normal. Patient has known multiple risk factors including: postmenopausal, diabetes, hypertension, dyslipidemia, family history of DE. Recommending to take daily baby aspirin, good diabetes control, follow up with primary care physician, the see a acoustic sensor operator if chest pain continues. Most likely her [...] 110. Assessment & Plan (08/25/2017 11:28 PM RECOVERY MANAGER): 56 years old female with history of [...] weeks. Assessment & Plan (08/04/2017 10:23 AM RECOVERY MANAGER): She takes metformin and basal insulin at [...] 04/09/2023 Melena 02/23/2012 04/09/2023 Leukocytosis 06/20/2011 04/09/2023 Encounters Date Type Department Care Team Description 10/07/2024 8:13 AM RECOVERY MANAGER - 10/07/2024 11:59 PM RECOVERY MANAGER Hospital Encounter [facility] [address] [facility] [address] [place] [address] Katie Davis NP Cervicalgia (Primary Dx); Neuralgia Discharge Disposition: Discharge to home or self care 09/26/2024 1:16 PM RECOVERY MANAGER - 09/26/2024 7:01 PM RECOVERY MANAGER Emergency [facility] Emergency Department 1 [place] [address] Discharge Disposition: Left without being seen 09/01/2024 7:35 AM RECOVERY MANAGER - 09/01/2024 11:59 PM RECOVERY MANAGER Hospital En[facility] [address] [place] [address] Katie Davis NP Cervical neuritis Discharge Disposition: Discharge to home or self care 08/04/2024 10:06 AM RECOVERY MANAGER - 08/04/2024 11:59 PM RECOVERY MANAGER Hospital Encounter [facility] [address] [place] [address] Cervical neuritis Discharge Disposition: Discharge to home or self care 08/04/2024 Telephone [facility] [address] [place] [phone] Missy Koo PA 08/02/2024 Telephone [facility] [address] [facility] [address] [place] [address] Missy Koo PA 08/02/2024 Orders Only [facility] [address] [place] [address] [address] [place] [address] Missy Koo PA Cervical neuritis (Primary Dx) 07/28/2024 9:05 AM RECOVERY MANAGER Ancillary Procedure [facility] Imaging at [address] [phone] Cervical neuritis 07/28/2024 8:30 AM RECOVERY MANAGER Office Visit [facility] [address] [place] [phone] Missy Koo PA Cervical neuritis (Primary Dx); S/P arthroscopy of left shoulder; Adhesive capsulitis of left shoulder from Last 3 Months Immunizations Immunization Administration Dates Next Due Influenza, Trivalent, Preservative Free, Intramu scular 06/01/2013 Surgical History Surgery Date Site/Laterality Comments REDUCTION MAMMOPLASTY breast reduction APPENDECTOMY KNEE SURGERY 08/17/2008 - 08/16/2009 Left partial knee replacment; HYSTERECTOMY 08/17/1989 - 08/16/1990 PARTIAL NEPHRECTOMY 08/17/2010 - 08/16/201108/18 of right kidney and 08/20 of left kidney CYSTOSCOPY 04/17/2016 - 05/16/2016 with stent placement LEFT COLECTOMY 11/15/2013 - 12/14/2013 open left colectomy, omental flap LAPAROSCOPIC CHOLECYSTECTOMY 03/17/2017 - 04/16/2017 SECTION x3 TONSILLECTOMY KNEE SURGERY x 5 CYSTOSCOPY W/ URETERAL STENT PLACEMENT 04/17/2016 - 05/16/2016 BACK SURGERY 08/17/1998 - 08/16/1999 L4, L5, screws placed EXAMINATION UNDER ANESTHESIA 12/02/2018 Examination under anesthesia. Rigid proctoscopy. Medical History Medical History Date Comments Hypertension Type 2 diabetes mellitus (HCC) Depression Personal history of kidney cancer Sleep apnea DVT (deep venous thrombosis) (HCC) 2008 s/p total knee replacement GERD (gastroesophageal reflux disease) Hepatitis in high school & hospitalized Low back pain Hematochezia Former smoker Rectovaginal fistula Vasovagal syncope 10/2017 Diverticulitis PONV (postoperative nausea a nd vomiting) Motion sickness Awareness under anesthesia remem bers sound of hammering during partial knee replacement; able to talk & said something to surgeon, then does not rememeber anything afterwards Fatty liver Chronic kidney disease kidney ca ner Cancer (HCC) kidney caner Diverticulitis of colon 11/21/2013 Helicobacter pylori infection 09/10/2015 Hyperlipidemia Family History Medical History Relation Name Comments Cancer Father Diabetes Father Diabetes Mother Heart disease Other 1 Family history of heart problems; Other Other 2 Family history of htn; Breast cancer Other 3 maternal side of family Ovarian cancer Other 3 maternal side of family Relation Name Status Comments Father Alive kidney cancer w / mets Mother Alive Other 1 Other 2 Other 3 maternal side of family Social History Tobacco Use Types Packs/Day Years [...] on file Legal Sex Female 11:52 PM RECOVERY MANAGER Gender Identity Not on file Sexual Orientation Not on file Obstetrics History Last Filed Vital Signs Vital Sign Reading Time Taken Comments Blood Pressure 138/79 10/07/2024 8:29 AM RECOVERY MANAGER Pulse 75 10/07/2024 8:29 AM RECOVERY MANAGER Temperature 36.3 C (97.4 F) 09/26/2024 1:31 PM RECOVERY MANAGER Respiratory Rate 18 10/07/2024 8:29 AM RECOVERY MANAGER Oxygen Saturation 99% 10/07/2024 8:29 AM RECOVERY MANAGER Inhaled Oxygen Concentration - - Weight 104.3 kg (230 lb) 09/26/2024 1:31 PM RECOVERY MANAGER Height 172.7 cm (5' 8 ) 07/28/2024 8:29 AM RECOVERY MANAGER Body Mass Index 34.97 07/28/2024 8:29 AM RECOVERY MANAGER Plan of Treatment Health Maintenance Due Date Last Done Comments Albumin Creatinine Ratio, Urine 1962 Breast Cancer Screening-Mammogram 1962 Hepatitis C Screening 1962 Dilated Eye Exam 1962 DTaP/Tdap/Td Vaccine (1 - Tdap) 1973 Hepatitis B Screening 1980 Regular Well Visit/Exam 18-64 1980 Pneumococcal vaccine <65 (1 of 2 - PCV) 1981 Zoster Vaccine (1 of 2) 2012 Foot Exam 08/25/2018 08/25/2017 Lipid Panel 11/11/2018 11/11/2017 eGFR 11/27/2021 11/27/2020, 08/0 10/2019, 06/08/2019, Additional history exists Covid-19 Vaccine (2023-2 5 season) 2024 12/26/2020, 11/28/2020 Influenza Vaccine (#1) 2024 06/01/2013 Hemoglobin A1C 11/03/2024 05/06/2024, 12/08/2020, 08/25/2017, Additional history exists Colon Cancer Screening-Colonoscopy 05/29/2025 05/29/2015, 12/28/2013 Depression Screening 09/01/2025 09/01/2024, 09/01/2024, 08/25/2017 Colon Cancer Screening-CT Colonography Discontinued 05/29/2015, 12/28/2013 Colon Cancer Screening-DNA Stool Discontinued 05/29/20 15, 12/28/2013 Colon Cancer Screening-FIT Discontinued 05/29/2015, Colon Cancer Screening-Sigmoidoscopy Discontinued 05/29/2015, 12/28/2013 Medical Devices Implanted Type Area Back Tacker Device Identifier Shelf Expiration Date Model / Serial / Lot [employer] Ar-[id number] Dx Swivelock Sl 3.5mm 8.5mm Fork Eyelet [place] Suture Sterile - [id number] Implanted:Qty: 1 on 11/04/2021 by Rodger Ramachandran MD at [facility] Left: Wrist [employer] 05/16/2026 AR-[id number] / / [id number] [employer] Ar-[id number] Arthrex Dx Fibertak Needle [place] Suture Sterile Latex Free - [id number] Implanted:Qty: 1 on 11/04/2021 by Rodger Ramachandran MD at [facility] Left: Wrist [employer] 06/16/2026 AR-[id number] / / [id number] Procedures Procedure Name Priority Date/Time Associated Diagnosis Comments XR CHEST 1 VIEW ED 09/26/2024 1:49 PM RECOVERY MANAGER MRI CERVICAL SPINE WO CONTRAST Schedule Routine, Read Routine (OP Routine) 08/04/2024 11:59 AM RECOVERY MANAGER Cervical neuritis XR SPINE CERVICAL 2 OR 3 VIEWS Schedule Routine, Read Routine (OP Routine) 07/28/2024 9:11 AM RECOVERY MANAGER Cervical neuritis HEMOGLOBIN A1C Routine 05/06/2024 3:24 PM CDT EGFR Routine 11/27/2020 7:05 AM CDT LIPID PANEL Routine 11/11/2017 5:37 AM CDT COLONOSCOPY REPORT 05/29/2015 from Last 3 Months or Most Recently Relevant to Health Maintenance Results * XR Chest 1 Vw Portable (09/26/2024 1:49 PM RECOVERY MANAGER) Anatomical Region Laterality Modality Body, Chest N/A Computed Radiogr aphy 09/26/2024 2:07 PM RECOVERY MANAGER Narrative 09/26/2024 2:08 PM RECOVERY MANAGER EXAM DESCRIPTION: XR CHEST 1 VIEW REASON [...] Ryan Hahn D.O. PS: PS Report ID: [id number] Reading Location: [id number] Procedure Note Ryan Hahn DO - 09/26/2024 EXAM DESCRIPTION: XR CHEST [...] Ryan Hahn D.O. PS: PS Report ID: [id number] Reading Location: [id number] us Jose Dale MD IMG XR PROCEDURES Final Resu lt * MRI Cervical Spine WO Contrast (08/04/2024 11:59 AM RECOVERY MANAGER) Anatomical Region Laterality Modality Spine N/A Magnetic Resonan ce 08/04/2024 12:0 2 PM RECOVERY MANAGER Narrative 08/04/2024 12:09 PM RECOVERY MANAGER EXAM DESCRIPTION: MRI CERVICAL SPINE WO CONTRAST REASON FOR STUDY: Provided history: 06/15/2024 pt had left shoulder surgery and went home with her nerve ayana [...] Mani Ann M.D. DASHA: DASHA Report ID: [id number] Reading Location: [id number] Procedure Note Mani Ann MD - 08/04/2024 [...] Mani Ann M.D. DASHA: DASHA Report ID: [id number] Reading Location: [id number] Missy MCKAY IMG MRI PROCEDURES Sandra l Result * XR Spine Cervical 2 or 3 Views (07/28/2024 9:11 AM RECOVERY MANAGER) Anatomical Region Laterality Modality Spine N/A Digital Radiogra phy 07/31/2024 1:51 PM RECOVERY MANAGER Narrative 07/31/2024 1:52 PM RECOVERY MANAGER EXAM DESCRIPTION: XR SPINE CERVICAL 2 OR [...] by Jovan Junior M.D. T: Report ID: [id number] Reading Location: [id number] Procedure Note Jovan Junior MD - 07/31/2024 [...] by Jovan Junior M.D. T: Report ID: [id number] Reading Location: [id number] Missy MCKAY IMG XR PROCEDURES Final Result * (ABNORMAL) Hemoglobin A1c (05/06/2024 3:24 PM CDT) Hgb A1C 6.9(H) 4.0 - 5.6 % Estimated Average Glucose 151 mg/dL TIM SUTTON ([place]) Comment: The ADA recommends reporting an estimated Average Glucose (eAG) with all Hemoglobin A1c results using the equation derived from a study of 507 normal and diabetic adults. Minority populations were underrepresented and children were not included. (Diabetes Care 31:2299-2267, 2008). The eAG is not equivalent to a fasting glucose. Blood 05/06/2024 3:24 PM CDT 05/06/2024 3:34 PM CDT us Jass Mckeon MD LAB BLOOD ORDERABLES Final Resul t TIM SUTTON ([place]) 1 [facility] Department [place] [address] * eGFR (11/27/2020 7:05 AM CDT) eGFR 100 mL/min/1.7 3 m2 TIM SUTTON ([place]) Comment: Interpretive Data Reference Interval Normal >/= [...] 7:05 AM CDT 11/27/2020 7:51 AM CDT us Mickey MCKAY LAB BLOOD ORDERABLES Final Re sult TIM SUTTON (CINDY) 1 [facility] [place] [address] * (ABNORMAL) Lipid panel (11/11/2017 5:37 AM [...] 7:07 AM CDT Patient was not fasting us Tamara Bradford MD LAB BLOOD ORDERABLES Final Re sult TIM SUTTON (CINDY) 1 [facility] [place] [address] * COLONOSCOPY REPORT (05/29/2015) Anatomical Region Laterality Modality Other Narrative 05/29/2015 Ordered by an unspecified provider. us Historical Provider GI PROCEDURE ORDERABLES F inal Result from Last 3 Months or Most Recently Relevant to Health Maintenance Insurance MEDICARE SOLUTIONS [facility] MEDICARE Address: [address] [address] MEDICARE SOLUTIONS MEDICARE SOLUTIONS [facility] MEDICARE Address: [address] [address] [place] [address] Advance Directives For more information, please contact: [phone] Documents on File Type Date Recorded Patient Production Recorder Expl anation ADVANCE DIRECTIVE 04/15/2017 Advance Di rective Checklist * Full Code (Latest Code Status on File) Date Activated Date Inactivated Comments 11/09/2017 6:43 PM 11/11/2017 8:43 PM * Full Code Date Activated Date Inactivated Comments 08/03/2017 6:24 PM 08/05/2017 12:42 AM Care Teams [employer] Football Coach Relationship Specialty Start Date End Date Mickey Raphael PA [address] [place] [address] PCP - General 11/30/17 Angeles James MD [address] [place] [address] Medical Oncologist/Summer School Coordinator Medical Oncology 03/04/18 [place] [address] [place] [address] Strip Picker Gastroenterology 02/23/19 [place] [address] [facility] [place] [address] Occupational Therapist Occupational Therapy 12/05/21 Amaury Ornelas MD [address] [facility] [address] [place] [address] Consulting Physician Anesthesiology 10/07/24
== END 2024-10-21 07:52 | disposition home or self-care (01) ==
LOC: CHSIMG 07:53
PROVIDERS: PCP Physician Assistant; Visit Provider Physician Assistant
DX: R10.11 Right upper quadrant pain (principal); K76.0 Fatty (change of) liver, not elsewhere classified
CPT/HCPCS: 76700

== ENCOUNTER 2025-02-23 07:14 | Outpatient (CLI) | payer MEDICARE, SELFPAY ==
--- NOTE | ~2025-02-23 | US_ITS ---
EXAMINATION: US thyroid DATE: 02/23/2025 08:23 INDICATION: Multiple thyroid nodules TECHNIQUE: Multiple ultrasound images of the thyroid were obtained. COMPARISON: None. FINDINGS: The right thyroid lobe measures 6.1 x 2.7 x 2.8 cm. The left thyroid lobe measures 6.6 x 2.1 x 2.3 c m. The thyroid isthmus measures 1.0 cm in thickness. 1.6 cm solid wider than tall nodule inferior ri ght thyroid lobe which is heterogeneously isoechoic and hypoechoic with lobular margins and without i nternal echogenic foci. (TI-RADS 4, moderately suspicious , FNA if >=1.5 cm, annual followup is >=1 c m). There is a second 9 mm solid hypoechoic wider than tall right thyroid nodule with smooth margins and without echogenic foci, also TI RADS 4. There are a few additional bilateral <5 mm nodules. IMPRESSION: 1. Multinodular goiter. Recommend ultrasound-guided biopsy of the 1.6 cm TI-RADS 4 right thyroid nodu le. Reviewed, dictated and finalized at location A. IMPRESSION: 1. Multinodular goiter. Recommend ultrasound-guided biopsy of the 1.6 cm TI-RAD S 4 right thyroid nodule.
--- OUTSIDE RECORDS SUMMARY | 2025-02-23 07:17 | XMS_ITS | Data Portability ---
Author Organization [facility] TONYJayla Address [address] [place] [address] Care Team Providers Care Core Shaper Sides Name Role Phone KACIE RAPHAEL Primary Care Provider Assessment No assessment recorded. Plan of Treatment Reminders Order Date Submit Date Provider Last Modified By Organization Details Last Modified Time Details Appointments None recorded. Lab TSH + free T4, serum 2024 025 [facility], [address] [place] [address], [address], 16:13:50 urinalysis , dipstick 2024 025 [facility] In-Office Order, Internal Use Only DO Not Attach Compendium DO Not Attach Compendium, Do Not Delete/merge, [id number] 12:32:06 Referral None recorded. Procedures None recorded. Surgeries None recorded. Imaging US, thyroid 2024 025 [facility], [address] [place], [address], 16:22:45 US, abdomen, complete 2024 025 [facility], [address] [place], [address], 09:23:37 Medication Orders amoxicilli n 875 mg tablet 2024 025 [facility] #[id number], [address] [place], [address], 05:01:57 Macrobid 100 mg capsule 2024 025 [id number], [address] [place], [address], 10:22:18 diphenoxyl ate-atropi ne 2.5 mg-0.025 mg tablet 2024 025 [id number], [address] [place], [address], 17:43:42 zolpidem 10 mg tablet 2024 025 [id number], [address] [place], [address], 17:43:42 Symbicort 160 mcg-4.5 mcg/actuat ion HFA aerosol inhaler 2024 025 [id number], [address] [place], [address], 17:29:04 Patient TargetsNo targets recorded. Patient Instructions Encounter Date Encounter Id Patient Instructions Last Modified By Organization Details Last Modified Time 11/03/2024 [id number] A healthy lifestyle: care instructions jnanney Not available 11/03/2024 12:32:31 01/02/2025 [id number] learning about type 2 diabetes jnanney Not available 01/02/2025 10:47:03 type 2 diabetes: care instructions jnanney Not available 01/02/2025 10:47:03 A healthy lifestyle: care instructions jnanney Not available 01/02/2025 10:47:03 02/20/2025 [id number] A healthy lifestyle: care instructions jnanney Not available 02/20/2025 16:12:40 Reason for Referral None Reported. Results Created Date Observation Date Name Description Value Unit Range Abnormal Flag Note LastModifiedBy Organization Detail LastModifiedTime 09/20/19 25 09/20/2024 influ sheyla virus A + B + SARS- CoV-2 (COVI D19) Ag panel , rapid IA, upper respi rator y speci men Flu A positi ve Not Available In-Office Order Internal Use Only DO Not Attach Compendium DO Not Attach Compendium, Do Not Delete/merge, [id number] 09/20/2024 15:52:34 09/20/19 25 09/20/2024 influ sheyla virus A + B + SARS- CoV-2 (COVI D19) Ag panel , rapid IA, upper respi rator y speci men Flu B negati ve Not Available In-Office Order Internal Use Only DO Not Attach Compendium DO Not Attach Compendium, Do Not Delete/merge, 09/20/2024 15:52:34 09/20/19 25 09/20/2024 influ sheyla virus A + B + SARS- CoV-2 (COVI D19) Ag panel , rapid IA, upper respi rator y speci men Rapid SARS CoV 2 Ag, QL IA, respiratory specimen negati ve Not Available In-Office Order Internal Use Only DO Not Attach Compendium DO Not Attach Compendium, Do Not Delete/merge, [id number] 09/20/2024 15:52:34 10/26/1910/25/2024 Hemog lobin A1c/H emogl obin. total in Blood hemoglobin A1C/hemoglob in.total in blood 8.1 % low: 4%high : 6% abnormal HGB-A 1C 8.1 (A) 4 - 6 % Not Available Not Available 11/03/2024 12:13:38 10/26/19 25 10/25/2024 Hemog lobin A1c/H emogl obin. total in Blood interpretati on and review of laboratory results Abnorm al Not Available Not Available 12:13:38 11/04/19 25 11/03/2024 urina lysis , dipst ick Leukocytes Negati ve Not Available In-Office Order Internal Use Only DO Not Attach Compendium DO Not Attach Compendium, Do Not Delete/merge, [id number] 11/03/2024 12:23:30 11/04/19 25 11/03/2024 urina lysis , dipst ick Nitrite negati ve Not Available In-Office Order Internal Use Only DO Not Attach Compendium DO Not Attach Compendium, Do Not Delete/merge, [facility] 11/03/2024 12:23:30 11/04/19 25 11/03/2024 urina lysis , dipst ick Urobilinogen .2 Not Available In-Of fice Order Internal Use Only DO Not Attach Compendium DO Not Attach Compendium, Do Not Delete/merge, [facility] 11/03/2024 12:23:30 11/04/19 25 11/03/2024 urina lysis , dipst ick Protein Trace Not Available In-Office Order Internal Use Only DO Not Attach Compendium DO Not Attach Compendium, Do Not Delete/merge, [facility] 11/03/2024 12:23:30 11/04/19 25 11/03/2024 urina lysis , dipst ick pH 5.5 Not Available In-Office Order Internal Use Only DO Not Attach Compendium DO Not Attach Compendium, Do Not Delete/merge, [facility] 11/03/2024 12:23:30 11/04/19 25 11/03/2024 urina lysis , dipst ick Blood Negati ve Not Available In-Office Order Internal Use Only DO Not Attach Compendium DO Not Attach Compendium, Do Not Delete/merge, [facility] 11/03/2024 12:23:30 11/04/19 25 11/03/2024 urina lysis , dipst ick Specific [place] 1.030 Not Available In-Off ice Order Internal Use Only DO Not Attach Compendium DO Not Attach Compendium, Do Not Delete/merge, [facility] 11/03/2024 12:23:30 11/04/19 25 11/03/2024 urina lysis , dipst ick Ketone Negati ve Not Available In-Office Order Internal Use Only DO Not Attach Compendium DO Not Attach Compendium, Do Not Delete/merge, [facility] 11/03/2024 12:23:30 11/04/19 25 11/03/2024 urina lysis , dipst ick Bilirubin Modera te Not Available In-Office Order Internal Use Only DO Not Attach Compendium DO Not Attach Compendium, Do Not Delete/merge, [id number] 11/03/2024 12:23:30 11/04/19 25 11/03/2024 urina lysis , dipst ick Glucose Negati ve Not Available In-Office Order Internal Use Only DO Not Attach Compendium DO Not Attach Compendium, Do Not Delete/merge, [id number] 11/03/2024 12:23:30 11/04/19 25 11/03/2024 urina lysis , dipst ick Appearance Clear Not Available In-Offi ce Order Internal Use Only DO Not Attach Compendium DO Not Attach Compendium, Do Not Delete/merge, [id number] 11/03/2024 12:23:30 11/04/19 25 11/03/2024 urina lysis , dipst ick Color Yellow Not Available In-Office Order Internal Use Only DO Not Attach Compendium DO Not Attach Compendium, Do Not Delete/merge, [id number] 11/03/2024 12:23:30 10/22/19 25 10/21/2024 US, abdom en, compl ete No observ ation record ed. [facility] [address] [place], [address], 10/21/2024 17:09:14 10/22/19 25 10/21/2024 US, abdom en, compl ete No observ ation record ed. [facility] [address] [place], [address], 10/21/2024 17:18:11 Result Notes None recorded. Problems Name Problem SNOMED Code Status Onset Date Resolution Date Notes Provider Name and Address Organization Details Recorded Time Generalized anxiety disorder 09642556 Active 2017 Not Available [facility] 4 01:20:34 Well controlled type 2 diabetes mellitus 188804198 Active 2016 Not Available [facility] 4 01:20:35 Hypertensive disorder 40085255 Active 2016 Not Available [facility] 4 01:20:35 Angina decubitus 87511924 Active 2016 Not Available [facility] 4 01:20:35 Body mass index 30+ - obesity 155317437 Active 2017 Not Available [facility] 4 01:20:34 Fatty stool 66343387 Active Not Available [facility] 4 01:20:35 Malignant tumor of kidney 376071410 Active Not Available [facility] 4 01:20:35 Blood in urine 40523138 Active Not Available [facility] 4 01:20:35 Gastroesophag eal reflux disease 507499170 Active Not Available [facility] 4 01:20:34 Furuncle of thigh 73369028 Active Not Available [facility] 4 01:20:35 Persistent hematuria 811711465 Active Not Available [facility] 4 01:20:34 Pharyngitis 049620699 Active Not Available [facility] 4 01:20:35 Laceration of finger 600475144 Active Not Available [facility] 4 01:20:34 Syncope 202322054 Active Not Available [facility] 4 01:20:34 Reduced libido 3153943 Active Not Available [facility] 4 01:20:35 Upper respiratory infection 36234888 Active Not Available [facility] 4 01:20:35 Chronic cough 71914706 Active Not Available [facility] 4 01:20:35 Diabetes mellitus 65331244 Active Not Available [facility] 4 01:20:35 Sleep apnea 52046886 Active Not Available [facility] 4 01:20:35 Acute folliculitis 939277983 Active Not Available [facility] 4 01:20:34 Foot pain 49434958 Active Not Available [facility] 4 01:20:35 Bronchitis 23146523 Active Not Available [facility] 4 01:20:34 Postmenopausa l bleeding 40311977 Active Not Available [facility] 4 01:20:35 Menopausal syndrome 607626232 Active Not Available [facility] 4 01:20:34 Laceration - injury 169113311 Active Not Available [facility] 4 01:20:34 Pain in toe 535708572 Active Not Available [facility] 4 01:20:34 Folliculitis 32998685 Active Not Available [facility] 4 01:20:34 Backache 003682790 Active Not Available [facility] 4 01:20:34 Lymphadenopat hy 83147733 Active Not Available [facility] 4 01:20:34 Abdominal mass 852764634 Active Not Available [facility] 4 01:20:34 Notes:Some problems listed i n Document: #[id number] could not be added to this patient's chart. Please review this document and add these problems to the patient's chart manually as needed. 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 Patient : 1960. Patient . [place] fowler [facility] [address] 12/07/2024 11:52:46 Procedures Surgical History Date Name Laterality Status Provider Name and Address Organization Details Recorded Time 08/17/19 18 Date of Last Mammogram completed TIFFANIE Arora [facility] 06/05/2020 11:40:16 08/17/18 92 Total hysterectomy completed ITFFANIE Francis [facility] 06/23/2023 10:10:29 Tonsillectomy completed TIFFANIE Keller 07/04/2014 10:55:21 Back Surgery completed TIFFANIE Keller 07/04/2014 10:55:21 Caesarean Section completed TIFFANIE Keller 07/04/2014 10:55:21 Knee Surgery completed TIFFANIE Keller 07/04/2014 10:55:21 Other completed TIFFANIE Keller 07/04/2014 10:55:21 Breast Surgery completed TIFFANIE Keller - [facility] 07/04/2014 10:55:21 Imaging Results None recorded. Procedure Notes None recorded. Medical Equipment None Reported. Allergies Allergen ID Allergen Name Allergen Category Reaction Reaction Severity Criticality Documentation Date Start Date Code Code System Note Provider Name and Address Organization Details Recorded Time 984286 iodine medicatio n Not available Not available Not available 03/15/20192015 5933 RxNorm CindyTIFFANIE [place] - [facility] 9 10:48:51 298 morphine medicatio n Not available Not available Not available 07/04/20142015 7052 RxNorm TIFFANIE [place] - [facility] 9 10:48:51 Medications Name Sig Start Date Stop Date Status Note LastModified by Organization Details LastModified Time drug unknown 10/26 completed Not Available Not Available Not Available new customer packet NEW CUSTOMER PACKET 01/02 completed Not Available Not Available Not Available cyclobenzap rine 10 mg tablet TAKE 1 TABLET BY MOUTH THREE TIMES A DAY NEEDED 08/19 completed Not Available Not Available Not Available amoxicillin 500 mg capsule 1 capsule tid 08/06 completed Not Available Not Available Not Available latanoprost 0.005 % eye drops INSTILL 1 DROP INTO AFFECTED EYE AT BEDTIME DIRECTED active Not Available Not Available No t Available atorvastati n 40 mg tablet TAKE 1 TABLET BY MOUTH EVERY DAY active Not Available Not Available No t Available metformin 500 mg tablet TAKE 1 TABLET BY MOUTH TWICE DAILY 04/03 completed Not Available Not Available Not Available Augmentin 875 mg-125 mg tablet Take 1 tablet every 12 hours by oral route for 10 days. 12/01 completed Not Available Not Available Not Available esterified estrogens-m ethyltestos terone 0.625 mg-1.25 mg tablet Take 1 tablet every day by oral route for 28 days. active Not Available Not Available No t Available clindamycin HCl 300 mg capsule Take 1 capsule 3 times a day by oral route as directed for 7 days. active Not Available Not Available No t Available triazolam 0.25 mg tablet TAKE 1 TAB BY MOUTH AT BEDTIME BEFORE DENTAL PROCEDURE AND 1 TAB BY MOUTH 1 HOUR BEFORE PROCEDURE 11/13 completed Not Available Not Available Not Available trazodone 50 mg tablet TAKE 1 TABLET BY MOUTH EVERYDAY AT BEDTIME 03/06 completed Not Available Not Available Not Available ibuprofen 800 mg tablet TAKE 1 TABLET BY MOUTH THREE TIMES A DAY 11/13 completed Not Available Not Available Not Available alprazolam 1 mg tablet PLEASE SEE ATTACHED FOR DETAILED DIRECTION S active Not Available Not Available No t Available fluconazole 150 mg tablet Take 2 tablets every day by oral route prn vaginal candidias is. active Not Available Not Available No t Available benzonatate 200 mg capsule Take 1 capsule 3 times a day by oral route as needed for 30 days. 09/27 completed Not Available Not Available Not Available clarithromy azul 500 mg tablet active Not Available Not Available Not Available cephalexin 250 mg capsule active Not Available Not Available Not Available hydrocodone 5 mg-acetamin ophen 325 mg tablet Take 1 tablet every 6-8 hours by oral route as needed for 10 days. 11/13 completed Not Available Not Available Not Available ondansetron HCl 8 mg tablet Take 1 tablet twice a day by oral route as needed. 01/02 completed Not Available Not Available Not Available fluconazole 200 mg tablet Take 1 tablet every 72 hours by oral route. 11/13 completed Not Available Not Available Not Available phenazopyri dine 200 mg tablet 10/26 completed Not Available Not Available Not Available ondansetron HCl 4 mg tablet Take 1 tablet twice a day by oral route as needed for 10 days. 04/03 completed Not Available Not Available Not Available prednisone 20 mg tablet 08/19 completed Not Available Not Available Not Available medroxyprog esterone 5 mg tablet TAKE 1 TABLET BY MOUTH EVERY DAY 09/22 completed Not Available Not Available Not Available metronidazo le 250 mg tablet active Not Available Not Available Not Available Lantus U-100 Insulin 100 unit/mL subcutaneou s solution 03/06 completed Not Available Not Available Not Available clindamycin HCl 150 mg capsule Take 1 capsule every 6 hours by oral route for 10 days. active Not Available Not Available No t Available diphenoxyla te-atropine 2.5 mg-0.025 mg tablet TAKE 2 TABLETS BY MOUTH 4 TIMES A DAY NEEDED FOR 5 DAYS active Not Available Not Available No t Available metronidazo le 500 mg tablet Take 1 tablet every 8 hours by oral route for 10 days. 08/06 completed Not Available Not Available Not Available ciprofloxac in 250 mg tablet active Not Available Not Available Not Available ciprofloxac in 500 mg tablet TAKE 1 TABLET BY MOUTH TWICE A DAY FOR 10 DAYS 01/19 completed Not Available Not Available Not Available morphine ER 30 mg tablet,exte nded release active Not Available Not Available Not Available sulfamethox azole 800 mg-trimetho prim 160 mg tablet Take 1 tablet every 12 hours by oral route for 10 days. 11/27 completed Not Available Not Available Not Available hydrocodone 10 mg-acetamin ophen 325 mg tablet active Not Available Not Available No t Available tramadol 50 mg tablet Take 1 tablet every 8 hours by oral route for 30 days. 08/06 completed Not Available Not Available Not Available amoxicillin 500 mg tablet active Not Available Not Available Not Available acyclovir 800 mg tablet Take 1 tablet 5 times a day by oral route for 5 days. 11/09 completed Not Available Not Available Not Available ondansetron 8 mg disintegrat ing tablet Place 1 tablet twice a day by transling ual route as needed for 5 days. 2023 active Not Available Not Available Not Avai lable oxycodone-a cetaminophe n 5 mg-325 mg tablet 07/05 completed Not Available Not Available Not Available Tessalon Perles 100 mg capsule 1 tid prn 01/19 completed Not Available Not Available Not Available alprazolam 0.5 mg tablet Take 1 tablet 3 times a day by oral route as needed for 30 days. 09/20 completed Not Available Not Available Not Available Guaiatussin AC 10 mg-100 mg/5 mL oral liquid Take 10 mL every 4 hours by oral route for 10 days. 03/07 completed Not Available Not Available Not Available amoxicillin 875 mg tablet Take 1 tablet every 12 hours by oral route for 10 days. 01/19 completed Not Available Not Available Not Available citalopram 20 mg tablet TAKE 1 TABLET BY MOUTH EVERY DAY 11/13 completed Not Available Not Available Not Available metoclopram maddi 5 mg tablet 08/19 completed Not Available Not Available Not Available temazepam 15 mg capsule Take 1 capsule as needed by oral route at bedtime for 30 days. active Not Available Not Available No t Available Nitrostat 0.[address] 1 tablet by sublingua l route. 04/03 completed Not Available Not Available Not Available ciprofloxac in 0.3 % eye drops 3 drops to affected eye tid for 7 days active Not Available Not Available No t Available [employer] Ultra Test strips USE DIRECTED TESTING TWICE DAILY 01/02 completed Not Available Not Available Not Available meclizine 25 mg tablet 08/19 completed Not Available Not Available Not Available baclofen 10 mg tablet Take 1 tablet every day by oral route at bedtime. 2024 active Not Available Not Available Not Avai lable timolol maleate 0.25 % eye drops INSTILL 1 DROP INTO BOTH EYES TWICE A DAY active Not Available Not Available No t Available cephalexin 500 mg capsule Take 1 capsule 3 times a day by oral route for 10 days. 11/13 completed Not Available Not Available Not Available pantoprazol e 40 mg tablet,parth yed release active Not Available Not Available Not Available oseltamivir 75 mg capsule TAKE 1 CAPSULE BY MOUTH TWICE A DAY FOR 5 DAYS 01/02 completed Not Available Not Available Not Available metformin 1,000 mg tablet TAKE 1 TABLET TWICE A DAY BY ORAL ROUTE FOR 90 DAYS. 10/19 completed Not Available Not Available Not Available esomeprazol e magnesium 40 mg capsule,del ayed release TAKE 1 CAPSULE BY MOUTH EVERY DAY 2023 active Not Available Not Available Not Avai lable neomycin-po lymyxin-dex ameth 3.5 mg/mL-10,00 0 unit/mL-0.1 % eye drops INSTILL 1 DROP INTO AFFECTED EYE(S) BY OPHTHALMI C ROUTE EVERY 3-4 HOURS 02/20 completed Not Available Not Available Not Available glimepiride 4 mg tablet active Not Available Not Available Not Available promethazin e 25 mg/mL injection solution Take 1 mL every day by injection route. 09/22 completed Not Available Not Available Not Available lidocaine 5 % topical patch APPLY 1 PATCH BY TRANSDERM AL ROUTE ONCE DAILY (MAY WEAR UP TO 12HOURS.) active Not Available Not Available No t Available triamcinolo ne acetonide 0.025 % topical ointment 08/06 completed Not Available Not Available Not Available Prevalite 4 gram powder for suspension in a packet 11/13 completed Not Available Not Available Not Available mupirocin calcium 2 % topical cream APPLY A SMALL AMOUNT TO THE AFFECTED AREA BY TOPICAL ROUTE 3 TIMES PER DAY FOR 10 DAYS 08/06 completed Not Available Not Available Not Available gabapentin 300 mg capsule TAKE 1 CAPSULE BY MOUTH THREE TIMES A DAY 08/06 completed Not Available Not Available Not Available omeprazole 20 mg capsule,del ayed release TAKE 1 CAPSULE BY MOUTH DAILY 01/02 completed Not Available Not Available Not Available lisinopril 20 mg-hydrochl orothiazide 25 mg tablet TAKE 1 TABLET BY MOUTH EVERY DAY 2024 active Not Available Not Available Not Avai lable aspirin 81 mg chewable tablet Chew 1 tablet every day by oral route. 10/19 completed Not Available Not Available Not Available diclofenac sodium 75 mg tablet,parth yed release Take 1 tablet twice a day by oral route for 30 days. 11/13 completed Not Available Not Available Not Available hydrocortis one 2.5 % topical cream APPLY TO AFFECTED AREA TWICE A DAY 02/20 completed Not Available Not Available Not Available hydrocodone 5 mg-acetamin ophen 500 mg tablet active Not Available Not Available No t Available acetaminoph en 300 mg-codeine 60 mg tablet TAKE 1 TABLET BY MOUTH 4 TIMES A DAY NEEDED FOR RIB PAIN 09/27 completed Not Available Not Available Not Available mupirocin 2 % topical ointment APPLY A SMALL AMOUNT TO NASAL PASSSAGES BY TOPICAL ROUTE 3 TIMES PER DAY 11/13 completed Not Available Not Available Not Available gabapentin 100 mg capsule TAKE 1-3 CAPSULES (100-300 MG TOTAL) BY MOUTH 3 (THREE) TIMES A DAY NEEDED (FOR NERVE PAIN) 02/20 completed Not Available Not Available Not Available estradiol 0.5 mg tablet Take 1 tablet(s) every day by oral route as directed. 09/22 completed Not Available Not Available Not Available levofloxaci n 500 mg tablet Take 1 tablet every 24 hours by oral route for 7 days. active Not Available Not Available No t Available zolpidem 10 mg tablet TAKE 1 TABLET BY MOUTH EVERY DAY AT BEDTIME FOR 30 DAYS active Not Available Not Available No t Available scopolamine 1 mg over 3 days transdermal patch Apply 1 patch every 72 hours by transderm al route. 01/02 completed Not Available Not Available Not Available neomycin 500 mg tablet active Not Available Not Available Not Available ketorolac 60 mg/2 mL intramuscul ar solution Inject 2 mL by intramusc ular route. 08/21 completed Not Available Not Available Not Available oxybutynin chloride 5 mg tablet Take 5 mg by oral route. 03/06 completed Not Available Not Available Not Available ondansetron 4 mg disintegrat ing tablet 01/02 completed Not Available Not Available Not Available colestipol 1 gram tablet TAKE 1 -2 TABLETS BY MOUTH DAILY. TAKE 2 HOURS APART FROM ANY MEDS active Not Available Not Available No t Available dicyclomine 10 mg capsule TAKE 1-2 CAPSULES BY MOUTH EVERY 6-8 HOURS active Not Available Not Available No t Available naproxen 500 mg tablet TAKE 1 TABLET BY MOUTH TWICE A DAY 12/15 completed Not Available Not Available Not Available diazepam 5 mg tablet active Not Available Not Available No t Available azithromyci n 500 mg tablet Take 1 tablet every day by oral route for 3 days. 12/15 completed Not Available Not Available Not Available escitalopra m 10 mg tablet TAKE 1 TABLET BY MOUTH DAILY 11/13 completed Not Available Not Available Not Available Novolog FlexPen U-100 Insulin aspart 100 unit/mL (3 mL) subcutaneou s Inject 30 units by sub-q route. 03/06 completed Not Available Not Available Not Available nitrofurant oin monohydrate /macrocryst als 100 mg capsule TAKE 1 CAPSULE BY MOUTH EVERY 12 HOURS FOR 10 DAYS 01/02 completed Not Available Not Available Not Available fenofibrate 160 mg tablet TAKE 1 TABLET BY MOUTH EVERY DAY 01/02 completed Not Available Not Available Not Available pregabalin 50 mg capsule TAKE 1 CAPSULE BY MOUTH 2 TIMES A DAY. active Not Available Not Available No t Available fenofibrate 03/07 completed Endo Not Available Not Available Not Available BD Ultra-Fine Short Pen Needle 31 gauge x 5/16 USE WITH LANTUS DAILY DIRECTED active Not Available Not Available No t Available oxymorphone ER 5 mg tablet,exte nded release,12 hr active Not Available Not Available Not Available OneTouch UltraMini kit active Not Available Not Available Not Available Januvia 100 mg tablet Take 100 mg by oral route. 03/06 completed Not Available Not Available Not Available Symbicort 160 mcg-4.5 mcg/actuati on HFA aerosol inhaler Inhale 2 puffs twice a day by inhalatio n route for 30 days. 10/19 completed Not Available Not Available Not Available Novofine 32 32 gauge x 1/4 needle 04/03 completed Not Available Not Available Not Available Creon 24,000-76,0 00-120,000 unit capsule,del ayed release 1-2 CAPSULES BY MOUTH WITH MEALS active Not Available Not Available No t Available Dexilant 60 mg capsule, delayed release Take 1 capsule every day by oral route for 90 days. 2014 active Not Available Not Available Not Avai lable Suprep Bowel Prep Kit 17.5 gram-3.13 gram-1.6 gram oral solution active Not Available Not Available Not Available OneTouch Delica Lancets 30 gauge active Not Available Not Available Not Available Levemir FlexTouch U-100 Insulin 100 unit/mL (3 mL) subcutaneou s pen Inject 60 units every day by subcutane ous route as directed for 30 days. 09/22 completed Not Available Not Available Not Available Humalog KwikPen U-200 Insulin 200 unit/mL (3 mL) subcutaneou s 08/04 completed Not Available Not Available Not Available Tresiba FlexTouch U-200 insulin 200 unit/mL (3 mL) subcutaneou s pen 80 units by sub-q route. active Not Available Not Available No t Available Humulin R U-500 (Conc) Insulin Kwikpen 500 unit/mL (3 mL) subcutaneou s INJECT 370 UNITS EVERY DAY BY SUBCUTANE OUS ROUTE DIRECTED active Not Available Not Available No t Available Marinoaglstephany Zaidi U-100 Insulin 100 unit/mL (3 mL) subcutaneou s Inject 80 units by sub-q route. 11/27 completed Not Available Not Available Not Available BD Josie 2nd Gen Pen Needle 32 gauge x 5/32 1 PEN NEEDLE BY DOES NOT APPLY ROUTE IN THE MORNING AND AT BEDTIME. active Not Available Not Available No t Available OneTouch Ultra2 Meter USE DIRECTED 01/02 completed Not Available Not Available Not Available Rybelsus 3 mg tablet Take 1 tablet every day by oral route for 30 days. 05/31 completed Not Available Not Available Not Available Ozempic 1 mg/dose (4 mg/3 mL) subcutaneou s pen injector INJECT 1 MG SUBCUTANE OUSLY ONCE A WEEK active Not Available Not Available No t Available Wegovy 0.25 mg/0.5 mL subcutaneou s pen injector Inject 0.25 mg every week by subcutane ous route. 10/01 completed Not Available Not Available Not Available Wegovy 0.5 mg/0.5 mL subcutaneou s pen injector INJECT 0.5 MG SUBCUTANE OUSLY EVERY WEEK 01/19 completed Not Available Not Available Not Available Plenity (Welcome Kit) 0.75 gram capsule Take 3 capsules (1 pod) by mouth with 16 ounces of water 20 to 30 minutes before lunch and before dinner 12/01 completed Not Available Not Available Not Available Paxlovid 300 mg (150 mg x 2)-100 mg tablets in a dose pack Take 1 dose pk by oral route as directed. 09/25 completed Not Available Not Available Not Available Dexcom G7 Plastic Molding Operator USE DIRECTED 01/02 completed Not Available Not Available Not Available Dexcom G7 Sensor device CHANGE SENSOR EVERY 10 DAYS active Not Available Not Available No t Available Ozempic 0.25 mg or 0.5 mg (2 mg/3 mL) subcutaneou s pen injector 0.25 MG UNDER THE SKIN WEEKLY FOR 4 WEEK AND 0.5 MG WEEKLY FOR 4 WEEKS 01/02 completed Not Available Not Available Not Available Vitals Date Recorded Body height Body mass index (BMI) Body weight Oxygen saturation Oxygen saturation in Arterial blood by Pulse oximetry Heart rate Systolic And Diastolic Provider Name and Address Organization Details Last Updated DateTime 5 172.72 cm 34.1 kg/m2 003154. 69 g 95 % 95 % 83 /min 128/70 mm[Hg] Linda Brito MA [facility] [address] 5 15:58:35 Date Recorded Body height Body mass index (BMI) Body weight Oxygen saturation Oxygen saturation in Arterial blood by Pulse oximetry Heart rate Respiratory rate Systolic And Diastolic Provider Name and Address Organization Details Last Updated DateTime 5 172.72 cm 34.4 kg/m2 206048. 88 g 97 % 97 % 93 /min 16 /min 124/78 mm[Hg] Leticia Zapata MA [facility] [address] 5 17:31:28 Date Recorded Body height Body mass index (BMI) Body weight Respiratory rate Oxygen saturation Oxygen saturation in Arterial blood by Pulse oximetry Heart rate Systolic And Diastolic Provider Name and Address Organization Details Last Updated DateTime 5 172.72 cm 35 kg/m2 422541. 25 g 16 /min 99 % 99 % 100 /min 122/84 mm[Hg] Leticia Zapata MA [facility] [address] 5 12:19:18 Date Recorded Body height Body mass index (BMI) Body weight Oxygen saturation Oxygen saturation in Arterial blood by Pulse oximetry Heart rate Systolic And Diastolic Provider Name and Address Organization Details Last Updated DateTime 5 172.72 cm 33.8 kg/m2 176598. 51 g 97 % 97 % 79 /min 110/80 mm[Hg] Linda Brito MA [facility] [address] 5 10:25:57 Date Recorded Body height Body mass index (BMI) Body weight Oxygen saturation Oxygen saturation in Arterial blood by Pulse oximetry Heart rate Systolic And Diastolic Provider Name and Address Organization Details Last Updated DateTime 5 172.72 cm 34.8 kg/m2 374936. 65 g 96 % 96 % 79 /min 128/80 mm[Hg] TIFFANIE Arora [facility] 15:52:17 Social History Question Answer Notes LastModified by Organizat ion Details LastModified Time Tobacco Smoking Status Current Every Day Smoker 1-2 cigarettes a week Linda Brito MA [facility] [place] [facility] 02/20/2025 15:47:26 Do You Have An Advance Directive? No Information not available 03/15/2019 What Is Your Level Of Caffeine Consumption? Moderate Information not available 11/13/2020 How Much Tobacco Do You Chew? None Information not available 03/02/2020 In The 14 Days Before Symptom Onset, Have You Had Close Contact With A Laboratory-confi rmed COVID-19 While That Case Was Ill? No Information not available 11/13/2020 In The 14 Days Before Symptom Onset, Have You Had Close Contact With A Person Who Is Under Investigation For COVID-19 While That Person Was Ill? No Information not available 11/13/2020 Have You Been To An Area Known To Be High Risk For COVID-19? No Information not available 11/13/2020 What Type Of Diet Are You Following? REGULAR Information not available 11/13/2020 Which Illicit Or Recreational Drugs Have You Used? None Information not available 03/02/2020 Live Alone Or With Others? With Others Information not available 03/15/2019 What Was The Date Of Your Most Recent Tobacco Screening? 02/20/2025 Information not available 02/20/2025 What Is Your Relationship Status? Information not available 11/13/2020 Do You Use Your Seat Belt Or Car Seat Routinely? Yes Information not available 06/18/2023 Do You Have Smoke And Carbon Monoxide Detectors In Your Home? Yes Information not available 12/18/2020 Are You Passively Exposed To Smoke? Yes Information not available 12/18/2020 Has Tobacco Cessation Counseling Been Provided? Yes Information not available 12/18/2020 On What Date Was Tobacco Cessation Counseling Provided? 02/20/2025 Information not available 02/20/2025 How Many Years Have You Smoked Tobacco? 30 [email or web address] Information not available 01/02/2016 Sex: Female Functional Status Question Answer Note LastModified by Organizat ion Details LastModified Time Do you use any illicit or recreational drugs? No Information not available 11/13/2020 Do you or have you ever used any other forms of tobacco or nicotine? No Information not available 12/18/2020 What is your level of alcohol consumption? None Information not available 03/15/2019 Do you or have you ever used smokeless tobacco? Never used smokeless tobacco Information not available 03/15/2019 Are you currently employed? No Retired Information not available 04/03/2022 Are you able to care for yourself? Yes Information not available 03/15/2019 Do you or have you ever used e-cigarettes or vape? Never used electronic cigarettes Information not available 03/15/2019 Mental Status Question Answer Note LastModified by Organization D etails LastModified Time Do you feel stressed (tense, restless, nervous, or anxious, or unable to sleep at night)? [id number] Information not available 06/18/2023 Family History Nothing Reported Notes:Family HX: ovarian and breast cancer, diabetes, kidney cancer Medical History Condition Response Coronary Artery Disease N Other N Atrial Fibrillation N High Blood Pressure N Thyroid Problems N Kidney or Bladder Problems Y Depression N COPD N Blood Clots N GI Problems N Skin Problems Y Eating Disorder N Anemia N Heart Attack (ID) N Diabetes Y Anxiety Disorder N Muscle, Joint, or Bone Problems N Seizures/Epilepsy N Acid Reflux (GERD) N Cancer Y Stroke N Allergies N Asthma N ADHD N Substance Abuse N High Cholesterol N Hepatitis N Liver Disease N Schizophrenia N Headaches N Osteoporosis N Heart Failure N Gynecological History Statement/Question Response Date of Last Mammogram 08/17/2017 Sexually Active? Y On BCP's at Conception? N STIs/STDs N Date of Last Pap Smear Sexual Problems? Y Age at First Child 25 LMP Approximate Obstetrics History GPAL:G 3 P 2 1 0 3 Type Value Multiple Births 1 Full Term 2 Premature 1 Living 3 Total 3 Immunizations Vaccine Type Date Status Note Provider Nam e and Address Organization Details Recorded Time Influenza, split virus, trivalent, PF 06/01/2013 completed Not Available [employer] 2023 01:20:35 COVID-19, mRNA, LNP-S, PF, 100 mcg/0.5mL dose or 50 mcg/0.25mL dose 11/28/2020 completed Kitty Hernandez LPN null, [place] [facility] 11/28/2020 14:03:23 COVID-19, mRNA, LNP-S, PF, 100 mcg/0.5mL dose or 50 mcg/0.25mL dose 12/26/2020 completed Alice Calvert MA null, [place] - [facility] 12/26/2020 15:51:19 Past Encounters Encounter ID Performer Location Encounter Start Date Encounter Closed Date Diagnosis/Indication Diagnosis SNOMED-CT Code Diagnosis ICD10 Code Diagnosis Note [id number] THAI Thompson [address] [place] [address] 07/04/2014 10:33:12 07/04/2014 16:31:20 Folliculitis 89568167 [id number] THAI Thompson [facility] [address] [place] [address] 08/15/2014 17:50:06 08/16/2014 12:20:05 Backache 180092750 [id number] THAI Thompson [facility] [address] [place] [address] 11/08/2014 16:20:48 11/08/2014 17:13:57 Fatty stool 39317258 Malignant tumor of kidney 405308715 [id number] THAI Thompson [address] [place] [address] 11/22/2014 10:21:24 11/22/2014 11:15:42 Folliculitis 42857048 Malignant tumor of kidney 636027086 Fatty stool 92120430 Backache 023698605 Blood in urine 39186360 [id number] THAI Thompson [facility] [address] [place] [address] 11/27/2014 10:37:53 11/27/2014 11:24:46 Gastroesophageal reflux disease 259715642 [id number] THAI Thompson [address] [place] [address] 11/30/2014 15:02:26 11/30/2014 16:01:19 Furuncle of thigh 42313869 [id number] Kacie Raphael PA-C [facility] [address] [place] [address] 12/06/2014 10:39:31 12/06/2014 11:27:06 Furuncle of thigh 75882487 [id number] Timothy Youngblood MD [facility] [address] [place] [address] 01/25/2015 16:43:34 01/25/2015 17:23:25 Backache 479068257 [id number] Timothy Youngblood MD [facility] [address] [place] [address] 02/15/2015 14:56:50 03/02/2015 14:43:12 Persistent hematuria 008570311 [id number] Timothy Youngblood MD [facility] [address] [place] [address] 03/01/2015 10:22:11 03/01/2015 11:04:28 Blood in urine 54035634 [id number] Timothy Youngblood MD [facility] [address] [place] [address] 04/02/2015 15:44:02 04/02/2015 16:05:52 Gastroesophageal reflux disease 737368958 Pharyngitis 965766949 [id number] Timothy Youngblood MD [facility] [address] [place] [address] 04/18/2015 10:22:58 04/18/2015 11:13:38 Gastroesophageal reflux disease 693162109 Folliculitis 50011339 Laceration of finger 641657667 Syncope 113525557 Reduced libido 7460881 [id number] Timothy Youngblood MD [facility] [address] [place] [address] 06/18/2015 10:53:05 06/18/2015 11:41:08 Gastroesophageal reflux disease 645608714 K21.9 Upper resp iratory infection 38879412 J06.9 Chronic cough 74648616 R 05 Malignant tumor of kidney 780349606 C64.9 [id number] Timothy Youngblood MD [facility] [address] [place] [address] 07/10/2015 10:23:26 07/10/2015 11:17:22 Folliculitis 85851050 L73.9 [id number] Timothy Youngblood MD [facility] [address] [place] [address] 08/15/2015 14:55:12 08/20/2015 11:45:06 Diabetes mellitus 42196439 E11.65 [id number] Timothy Youngblood MD [facility] [address] [place] [address] 08/21/2015 11:21:45 08/21/2015 12:08:13 Diabetes mellitus 00979168 E11.65 [id number] Timothy Youngblood MD [facility] [address] [place] [address] 09/10/2015 11:09:09 09/10/2015 14:31:28 Diabetes mellitus 51554973 E11.65 [id number] Timothy Youngblood MD [facility] [address] [place] [address] 09/19/2015 09:49:09 09/19/2015 11:05:27 Diabetes mellitus 68871422 E11.65 Gastroesop hageal reflux disease 164092866 K21.9 Sleep apnea 57394432 G47 .30 [id number] Timothy Youngblood MD [facility] [address] [place] [address] 10/08/2015 09:56:26 10/08/2015 10:33:07 Diabetes mellitus 01308026 E11.65 Acute folliculitis 58049 7007 L73.9 [id number] THAI Thompson [facility] [address] [place] [address] 11/15/2015 16:51:41 11/16/2015 09:01:08 Folliculitis 78899348 L73.9 Diabetes mellitus 599943 09 E11.65 [id number] THAI Thompson [address] [place] [address] 11/29/2015 16:36:23 11/29/2015 17:15:20 Diabetes mellitus 63107901 E11.65 Foot pain 84585999 M79.6 [id number] Kacie Raphael PA-C [facility] [address] [place] [address] 12/18/2015 14:48:46 12/18/2015 15:34:29 Bronchitis 72882527 J40 [id number] [facility] [address] [place] [address] 01/02/2016 16:47:12 01/02/2016 17:39:59 Gynecologic examination 04097265 Z01.419 Screening mammography 24 328254 Z12.31 Postmenopa usal bleeding 06124503 N95.0 Menopausal syndrome 1237 55282 N95.9 [id number] Kacie Raphael PA-C [facility] [address] [place] [address] 01/09/2016 11:44:52 01/09/2016 14:31:10 Laceration - injury 049078839 T14.8 [id number] Kacie Raphael PA-C [facility] [address] [place] [address] 01/18/2016 16:22:49 01/18/2016 17:14:04 Laceration - injury 959035320 T14.8 [id number] Timothy Youngblood MD [facility] [address] [place] [address] 02/13/2016 10:18:23 02/13/2016 12:13:40 Pain in toe 445636271 M79.675 [id number] Kacie Raphael PA-C [facility] [address] [place] [address] 03/11/2016 16:53:10 03/11/2016 17:34:49 Foot pain 90981802 M79.671 [id number] [facility] [address] [place] [address] 04/09/2016 14:49:19 04/09/2016 15:22:02 Folliculitis 18336467 L73.9 [id number] [facility] [address] [place] [address] 04/14/2016 15:26:18 04/14/2016 16:19:19 Acute folliculitis 114036059 L73.9 Persistent hematuria 281 473056 N02.9 Malignant tumor of kidney 213274525 C64.9 [id number] Kacie Raphael PA-C [facility] [address] [place] [address] 04/22/2016 16:26:13 04/22/2016 17:41:55 Acute folliculitis 795203200 L73.9 [id number] Kacie Raphael PA-C [facility] [address] [place] [address] 05/07/2016 10:20:56 05/07/2016 11:31:39 [id number] Kacie Raphael PA-C [facility] [address] [place] [address] 05/09/2016 15:03:20 05/09/2016 17:03:24 Lymphadenopathy 86199675 R59.0 [id number] Kacie Raphael PA-C [facility] [address] [place] [address] 05/26/2016 17:38:21 05/26/2016 19:15:51 Acute folliculitis 278189654 L73.9 Abdominal mass 347381406 R19.00 [id number] Kacie Raphael PA-C [facility] [address] [place] [address] 06/27/2016 10:09:27 06/27/2016 11:18:54 Gastroenteritis 03493725 K52.9 [id number] Kacie Raphael PA-C [facility] [address] [place] [address] 08/04/2016 10:33:45 08/04/2016 12:09:37 Upper respiratory infection 02973803 J01.01 Diabetes mellitus 121320 09 E11.65 [id number] Timothy Youngblood MD [facility] [address] [place] [address] 08/14/2016 14:01:10 08/14/2016 15:16:00 Low back pain 998279483 M54.5 Backache w ith radiating pain 324451077 M54.9 Low back strain 75145418 1 S39.012A [id number] Timothy Youngblood MD [facility] [address] [place] [address] 08/21/2016 10:40:20 08/21/2016 12:37:32 Low back pain 641115033 M54.5 Rotator cuff syndrome 41 13291 M75.110 Lumbar radiculopathy 128 085534 M54.16 Uncontroll ed type 2 diabetes mellitus 439846376 E11.65 Diabetes mellitus 447230 09 E11.65 [id number] Kacie Raphael PA-C [facility] [address] [place] [address] 09/30/2016 10:37:41 09/30/2016 11:36:53 Primary thunderclap headache 5820608096 48028 G44.53 [id number] Kacie Raphael PA-C [facility] [address] [place] [address] 10/07/2016 15:47:58 10/07/2016 16:45:40 Essential hypertension 54012106 I10 Type 2 alexia betes mellitus 52282322 E11.9 [id number] Kacie Raphael PA-C [facility] [address] [place] [address] 11/04/2016 19:15:09 11/05/2016 12:27:38 Acute bronchitis 93654583 J20.0 Bronchitis 27204538 J40 [id number] Kacie Raphael PA-C [facility] [address] [place] [address] 11/26/2016 10:47:58 11/26/2016 14:00:13 Gastroesophageal reflux disease without esophagitis 890547377 K21.9 Melena 6155920 K92.1 [id number] Timothy Youngblood MD [facility] [address] [place] [address] 01/09/2017 15:54:35 01/09/2017 17:11:09 Change of dressing 73328225 Z48.01 [id number] Timothy Youngblood MD [facility] [address] [place] [address] 02/26/2017 09:58:42 02/26/2017 11:58:20 Pain in right knee 3763974627 36721 M25.561 Abdominal pain 83420460 R10.9 Essential hypertension 70528225 I10 Type 2 alexia betes mellitus 48451989 E11.9 Non-alcoho lic fatty liver 445716879 K76.0 [id number] Timothy Youngblood MD [facility] [address] [place] [address] 03/26/2017 16:58:27 03/26/2017 17:55:10 Left upper quadrant pain 044046677 R10.12 Pain in right knee 97912 12440 53724 M25.246 [id number] Kacie Raphael PA-C [facility] [address] [place] [address] 06/29/2017 16:56:21 06/29/2017 18:10:22 Sprain of foot 67136653 S93.612A Osteoarthr itis of knee 758170060 M17.12 [id number] Kacie Raphael PA-C [facility] [address] [place] [address] 07/28/2017 15:28:26 07/28/2017 17:49:19 Uncontrolled type 2 diabetes mellitus 165148899 E11.65 [id number] Kacie Raphael PA-C [facility] [address] [place] [address] 08/03/2017 11:47:06 08/03/2017 14:12:[address] segment elevation myocardial infarction 527405017 I21.3 [id number] Kacie Raphael PA-C [facility] [address] [place] [address] 08/13/2017 13:52:45 08/13/2017 15:28:36 Angina pectoris 480341149 I20.8 [id number] Kacie Raphael PA-C [facility] [address] [place] [address] 10/26/2017 15:31:03 10/26/2017 17:23:01 Diabetes mellitus 02326383 E11.9 Anxiety 35606861 F41.1 Chronic depression 49144 0009 F34.1 Senile hyperkeratosis 39 9463594 L82.1 [id number] Timothy Youngblood MD [facility] [address] [place] [address] 11/09/2017 10:56:15 11/09/2017 17:05:32 Benign paroxysmal positional vertigo 728264609 H81.13 Type 2 alexia betes mellitus 65878148 E11.9 Low blood pressure 82462 003 I95.0 Urinary tr act infectious disease 37202184 N39.0 [id number] Timothy Youngblood MD [facility] [address] [place] [address] 11/12/2017 15:25:33 11/12/2017 17:24:16 Syncope 477416249 R55 [id number] Timothy Youngblood MD [facility] [address] [place] [address] 01/15/2018 10:40:44 01/15/2018 11:05:19 Diabetes mellitus 96625283 E11.9 Generalize d anxiety disorder 34062743 F41.1 Backache 583149202 M54.9 Adult heal th examination 535473058 Z00.00 [id number] Timothy Youngblood MD [facility] [address] [place] [address] 01/22/2018 09:52:44 01/22/2018 10:40:36 Contact dermatitis caused by urushiol from [facility] carly 925138800 L23.7 Obstructiv e sleep apnea syndrome 33603676 G47.33 [id number] Timothy Youngblood MD [facility] [address] [place] [address] 04/07/2018 11:42:28 04/07/2018 12:52:51 Axillary lymphadenopathy 429036055 R59.0 [id number] Kacie Raphael PA-C [facility] [address] [place] [address] 05/11/2018 14:45:09 05/11/2018 15:29:28 Generalized anxiety disorder 61366129 F41.1 Gastroesop hageal reflux disease 458250884 K21.9 Diabetes mellitus 476916 09 E11.9 Obstructiv e sleep apnea of adult 2844806844 103 G47.33 Pityriasis versicolor 56 343508 B36.0 [id number] THAI Thompson [facility] [address] [place] [address] 05/21/2018 15:22:20 05/21/2018 16:06:13 Epidermoid cyst of skin 812835785 L72.0 [id number] Kacie Raphael PA-C [facility] [address] [place] [address] 05/28/2018 15:28:18 05/28/2018 16:06:40 Puncture wound of skin 083076438 T14.8XXD [id number] Kacie Raphael PA-C [facility] [address] [place] [address] 07/02/2018 14:33:10 07/02/2018 15:16:03 Pain in pelvis 41190672 R10.2 Glycosuria 61257961 R81 Type 2 alexia betes mellitus 04710071 E11.9 Costal chondritis 895898 04 M94.0 [id number] Kacie Raphael PA-C [facility] [address] [place] [address] 07/12/2018 14:59:49 07/12/2018 16:17:17 Acute bacterial bronchitis 933663438 J20.9 Bronchitis 98618173 J40 Open wound of lower leg 600468600 S81.801D [id number] Kacie Raphael PA-C [facility] [address] [place] [address] 09/16/2018 15:28:55 09/16/2018 16:35:22 Contusion of chest 86252389 S20.211A Gastroenteritis 03560229 K52.9 Type 2 alexia betes mellitus 99153618 E11.9 [id number] Kacie Raphael PA-C [facility] [address] [place] [address] 09/23/2018 10:47:29 09/23/2018 11:54:24 Rib pain 283162858 R07.81 Type 2 alexia betes mellitus 25612618 E11.9 [id number] Kacie Raphael PA-C [facility] [address] [place] [address] 11/09/2018 11:11:49 11/09/2018 12:46:04 Acute bronchitis with bronchospasm 13225318 J20.8 Type 2 alexia betes mellitus 76258294 E11.9 [id number] Dalila Gleason, [facility] [address] [place] [address] 11/17/2018 10:46:48 11/17/2018 15:25:55 Gynecologic examination 40795337 Z01.419 1. Counseled regarding prevention of STD's , condom use 2. Pap done and mammogram order given 3. Advised avoidance of tobacco, alcohol, and drugs . 4. Counseled regarding folic acid supplement ation, calcium needs and prevention of osteoporos is . 5. BSE reviewed and recommende d. 6. Follow up in one year or sooner if needed. 7. Will follow up following surgical consult if needed. [id number] Kacie Raphael PA-C [facility] [address] [place] [address] 02/09/2019 10:24:41 02/09/2019 12:36:01 Generalized anxiety disorder 80784717 F41.1 Gastroesop hageal reflux disease 217009690 K21.9 Diabetes mellitus 114547 09 E11.9 [id number] Kacie Raphael PA-C [facility] [address] [place] [address] 02/11/2019 11:17:01 02/11/2019 12:49:34 Migraine without aura 45572090 G43.009 Gastroenteritis 84978423 K52.9 [id number] Kacie Raphael PA-C [facility] [address] [place] [address] 03/15/2019 10:43:41 03/15/2019 12:39:10 Screening mammography 99979464 Z12.31 Lateral epicondylitis 20 7531177 M77.11 [id number] Kacie Raphael PA-C [facility] [address] [place] [address] 05/03/2019 17:21:24 05/03/2019 18:46:23 Cervical radiculopathy 05847054 M54.12 [id number] THAI Thompson [address] [place] [address] 06/10/2019 10:26:35 06/10/2019 14:55:48 Generalized anxiety disorder 39856105 F41.1 Gastroesop hageal reflux disease 433375377 K21.9 Diabetes mellitus 158900 09 E11.9 Angina pectoris 73371218 0 I20.8 [id number] THAI Thompson [facility] [address] [place] [address] 06/27/2019 12:05:44 06/27/2019 16:06:54 Cellulitis 408293268 L03.490 [id number] THAI Thompson [facility] [address] [place] [address] 07/27/2019 15:43:17 07/27/2019 16:48:49 Bilateral foot joint pain 6115541979 9243376 M79.671 Lesion of nose 907377426 J34.89 [id number] Kacie Raphael PA-C [facility] [address] [place] [address] 08/19/2019 14:24:40 08/19/2019 15:50:37 Candidiasis of vagina 69361471 B37.3 Diarrhea 15409236 R19.7 [id number] THAI Thompson [facility] [address] [place] [address] 09/13/2019 10:38:14 09/13/2019 12:01:32 Bronchitis 44410061 J40 Diabetes mellitus 102413 09 E11.9 Acute bron chitis with bronchospasm 42175374 J20.8 [id number] THAI Thompson [facility] [address] [place] [address] 12/07/2019 14:28:18 12/08/2019 13:24:35 Cervical radiculopathy 40686951 M54.12 [id number] THAI Thompson [facility] [address] [place] [address] 02/28/2020 10:07:17 03/06/2020 03:46:52 [id number] THAI Thompson [address] [place] [address] 03/02/2020 09:37:27 03/02/2020 12:47:30 Pain of right hip joint 8314998601 95476 M25.551 Cellulitis of lower limb 194083044 L03.764 [id number] Kacie Raphael PA-C [facility] [address] [place] [address] 03/06/2020 18:58:37 03/06/2020 19:44:21 Diabetes mellitus 43389071 E11.9 Generalize d anxiety disorder 30455038 F41.1 Acute folliculitis 35444 7007 L73.9 [id number] Kacie Raphael PA-C [facility] [address] [place] [address] 03/30/2020 10:12:55 04/02/2020 06:45:50 Lateral femoral cutaneous neuralgia 748977876 M79.076 [id number] Timothy Youngblood MD [facility] [address] [place] [address] 06/05/2020 09:31:23 06/05/2020 13:32:46 Cervical radiculopathy 13379814 M54.12 [id number] Missy Keene MD [facility] [address] [place] [address] 10/09/2020 12:28:33 10/10/2020 07:07:15 Viral screening 454295983 Z11.52 D/w pt the current pandemic of COVID-19 and call for social isolation in order to blunt the curve and minimize risk and spread. Encouraged patient and family to take restrictio ns seriously. They have verbalized understand ing of such. Viral syndrome 991702693 B34.9 [id number] Timothy Youngblood MD [facility] [address] [place] [address] 11/13/2020 09:39:16 11/14/2020 15:56:59 Right kidney absent 215854486 Z90.5 Renal cell carcinoma 702 824338 C64.1 Nausea and vomiting 1693 2000 R11.2 Fatty stool 85425642 R19 .5 [id number] MD Paramjit Noel [address] [place] [address] 11/28/2020 11:30:12 11/29/2020 09:03:17 Administration of SARS-CoV-2 antigen vaccine 694257231 Z23 [id number] Timothy Youngblood MD [facility] [address] [place] [address] 11/29/2020 09:40:39 12/03/2020 10:16:15 Type 2 diabetes mellitus 56467878 E11.9 [id number] Timothy Youngblood MD [facility] [address] [place] [address] 12/18/2020 09:30:02 12/18/2020 18:01:51 Type 2 diabetes mellitus 37494160 E11.9 [id number] Kacie Matthews MD [facility] [address] [place] [address] 12/26/2020 10:45:07 01/07/2021 17:55:02 Administration of SARS-CoV-2 antigen vaccine 880189375 Z23 [id number] Kacie Raphael PA-C [facility] [address] [place] [address] 04/09/2021 10:27:32 04/09/2021 11:32:43 Cervical radiculopathy 41369322 M54.12 Pain in left thumb 25624 84940 895400 M79.645 Body mass index 30+ - obesity 705767820 Z68.33 [id number] Kacie Raphael PA-C [facility] [address] [place] [address] 08/06/2021 18:12:41 08/06/2021 19:34:01 Type 2 diabetes mellitus 52916579 E11.9 [id number] Kacie Raphael PA-C [facility] [address] [place] [address] 08/26/2021 16:11:38 08/27/2021 06:48:45 Uncontrolled type 2 diabetes mellitus 681120996 E11.65 [id number] Kacie Raphael PA-C [facility] [address] [place] [address] 09/26/2021 15:53:06 09/27/2021 08:45:05 Type 2 diabetes mellitus 63622432 E11.9 Shoulder j oint painful on movement 128505026 M25.007 [id number] Timothy Youngblood MD [facility] [address] [place] [address] 10/28/2021 11:25:37 10/28/2021 15:06:00 Pain of right shoulder joint 0920150624 3443557 M25.321 [id number] Kacie Raphael PA-C [facility] [address] [place] [address] 04/02/2022 10:02:41 04/02/2022 10:34:01 Urgent desire to urinate 08149849 R39.15 Pt is having urgency to urinate, some leakage when standing [id number] Kacie Raphael PA-C [facility] [address] [place] [address] 04/03/2022 10:52:28 04/03/2022 11:50:03 Type 2 diabetes mellitus 24753527 E11.9 [id number] Kacie Raphael PA-C [facility] [address] [place] [address] 05/07/2022 10:36:24 05/07/2022 11:05:29 Supraspinatus tear 824812539 M75.111 Morbid obesity 259928223 E66.01 Overweight 053737142 E66 .3 [id number] Kacie Raphael PA-C [facility] [address] [place] [address] 07/03/2022 11:02:25 07/03/2022 11:53:39 Pain of shoulder region 52733498 M25.511 Type 2 alexia betes mellitus 03647134 E11.9 Mixed hyperlipidemia 267 559269 E78.2 Chronic diarrhea 3937731 09 K52.9 [id number] Kacie Raphael PA-C [facility] [address] [place] [address] 12/01/2022 10:43:55 12/02/2022 17:16:38 Chronic diarrhea 715237471 K52.89 Obesity 829181935 E66.9 Uncontroll ed type 2 diabetes mellitus 703556071 E11.65 [id number] Kacie Raphael PA-C [facility] [address] [place] [address] 12/18/2022 15:49:57 12/19/2022 10:26:41 Acute urinary tract infection 133284993 N10 Overweight 206129732 E66 .3 [id number] Kacie Raphael PA-C [facility] [address] [place] [address] 01/01/2023 11:43:21 01/02/2023 10:18:09 Pain in right hand 1919264909 25980 M79.641 Overweight 606948260 E66 .3 [id number] Timothy Youngblood MD [facility] [address] [place] [address] 02/20/2023 14:56:45 02/23/2023 10:02:44 Uncontrolled type 2 diabetes mellitus 039752787 E11.65 will call her endo and sched appt Overweight 172834681 E66 .3 [id number] Timothy Youngblood MD [facility] [address] [place] [address] 04/06/2023 14:54:10 04/07/2023 14:27:03 Pain of left elbow joint 0750308507 9553870 M25.522 Closed fra cture of multiple left ribs 6320443492 6466956 S22.42XA [id number] Kacie Raphael PA-C [facility] [address] [place] [address] 06/18/2023 16:17:42 06/24/2023 11:39:16 Overweight 184220226 E66.3 Type 2 alexia betes mellitus 46611366 E11.9 Right uppe r quadrant pain 727243120 R10.11 Unexplaine d weight loss 214680481 R63.4 [id number] Kacie Raphael PA-C [facility] [address] [place] [address] 08/14/2023 14:10:15 08/18/2023 14:31:18 Viral syndrome 728677912 B34.9 COVID-19 217947618 U07.1 Overweight 123568667 E66 .3 [id number] Kacie Raphael PA-C [facility] [address] [place] [address] 09/25/2023 11:23:06 09/28/2023 15:11:38 Allergic reaction to flea bite 829002391 T63.481A Pruritic rash 92760702 L 28.2 Overweight 586098021 E66 .3 [id number] Kacie Raphael PA-C [facility] [address] [place] [address] 10/01/2023 10:01:16 10/05/2023 15:57:25 Pain in left foot 9476592757 29451 M79.672 Overweight 959279905 E66 .3 [id number] Kacie Raphael PA-C [facility] [address] [place] [address] 10/29/2023 15:23:46 10/31/2023 13:52:23 Pain of toe of left foot 2949923212 44856 M79.675 Epigastric pain 93808567 R10.13 Overweight 978340328 E66 .3 [id number] Timothy Youngblood MD [facility] [address] [place] [address] 12/16/2023 11:07:00 12/17/2023 13:04:20 Persistent cough 057477176 R05.3 Overweight 331227194 E66 .3 [id number] Timothy Youngblood MD [facility] [address] [place] [address] 01/20/2024 15:37:50 01/21/2024 12:57:27 Pain of left shoulder joint 8062081739 1109867 M25.512 Lateral ep icondylitis of right humerus 7356863544 91769 M77.11 [id number] Timothy Youngblood MD [facility] [address] [place] [address] 02/01/2024 14:15:31 02/04/2024 21:59:12 Right upper quadrant pain 058449467 R10.11 Nausea 271960955 R11.0 [id number] Timothy Youngblood MD [facility] [address] [place] [address] 02/17/2024 11:55:45 02/19/2024 13:17:36 Right upper quadrant pain 310967448 R10.11 Pain of ri ght shoulder joint 0529877986 6786745 M25.511 Mixed hyperlipidemia 267 254090 E78.2 [id number] Timothy Youngblood MD [facility] [address] [place] [address] 03/03/2024 10:08:28 03/10/2024 14:53:02 Type 2 diabetes mellitus 08757359 E11.9 Reactive hypoglycemia 31 7006 E16.1 Overweight 211565229 E66 .3 Persistent cough 1416650 02 R05.3 [id number] Kacie Raphael PA-C [facility] [address] [place] [address] 05/18/2024 15:06:19 05/19/2024 14:18:47 Generalized anxiety disorder 73716259 F41.1 Morbid obesity 912555725 E66.01 Anxiety 56409585 F41.1 [id number] Timothy Youngblood MD [facility] [address] [place] [address] 05/31/2024 10:03:26 06/02/2024 12:54:12 Acute low back pain 794249963 M54.51 History of lumbar fusion 1520348014 9106 Z98.1 Lumbar radiculopathy 128 101498 M54.16 Overweight 718125243 E66 .3 [id number] Timothy Youngblood MD [facility] [address] [place] [address] 06/14/2024 12:00:09 06/16/2024 10:19:42 Costal chondritis 39319986 M94.0 Pain of ri ght shoulder joint 7409088816 1088105 M25.511 Overweight 506363563 E66 .3 [id number] Timothy Youngblood MD [facility] [address] [place] [address] 07/05/2024 18:50:20 07/08/2024 14:51:46 Pain of left shoulder joint 2301480225 0807670 M25.512 Gastro-eso phageal reflux disease with esophagitis 806862603 K21.00 Esophageal dysphagia 408 81099 R13.19 Overweight 856207208 E66 .3 [id number] Timothy Youngblood MD [facility] [address] [place] [address] 09/20/2024 15:31:19 09/23/2024 09:34:01 Cough 55529865 R05.9 Influenza caused by Influenza A virus 449039473 J09.X2 Overweight 947154192 E66 .3 [id number] Timothy Youngblood MD [facility] [address] [place] [address] 09/27/2024 15:43:20 10/03/2024 11:23:57 Influenza caused by Influenza A virus 023466333 J09.X2 [id number] Timothy Youngblood MD [facility] [address] [place] [address] 10/19/2024 17:20:04 10/21/2024 14:38:36 Chronic insomnia 035675639 F51.04 Chronic diarrhea 4888820 09 K52.89 Drug-induc ed constipation 79917722 K59.03 Right uppe r quadrant pain 010756083 R10.11 [id number] Timothy Youngblood MD [facility] [address] [place] [address] 11/03/2024 12:13:02 11/08/2024 10:04:52 Urinary symptoms 789852214 R30.0 Overweight 512020071 E66 .3 [id number] Timothy Youngblood MD [facility] [address] [place] [address] 01/02/2025 10:08:20 01/03/2025 13:55:42 Recurrent acute maxillary sinusitis 0037045414 5792525 J01.01 Type 2 alexia betes mellitus 42460117 E11.9 treated by endo..hold ozempic until she discusses with Tae.. Multinodular goiter 2375 68844 E04.2 do not resume ozempic until discussed with Endo.. History of polyp of colon 962695423 Z86.0100 last colonoscop y less than years ago.. Obese class I 6655780952 74958 E66.735 [id number] Timothy Youngblood MD [facility] [address] [place] [address] 02/20/2025 15:40:43 02/22/2025 08:36:46 Multinodular goiter 936333717 E04.2 do not resume ozempic until discussed with Endo.. Obese class I 3998257984 48722 E66.811 Health Concerns Section Related Observation LastModified by Organization Detai ls LastModified Time None Recorded Concern Status LastModified by Organization Details LastModified Time None Recorded Advance Directives Directive N: Payers Insurance Date Sequence Insurance Name Policy Number Policy Beltran Covered Member ID Beltran Member ID Guarantor Name 02/17/2024 [place]: [facility] Missy Son [id number] Missy Son 11/16/2023 1 [employer] (POS II) [id number] John Son [id number] Missy Son 02/17/2024 3 [place]MEDICARE) Missy Son [id number] Missy Son 02/17/2024 MED[place]: [facility] Missy Son [id number] Missy Son 02/23/2024 2 [facility] (MEDICARE REPLACEMENT /ADVANTAGE - HMO) [id number] Missy Son [id number] Missy Son 02/17/2024 1 [employer] (MEDICARE REPLACEMENT /ADVANTAGE - HMO) [id number] Missy Son [id number] Missy Son 02/20/2025 1 [facility] (MEDICARE REPLACEMENT /ADVANTAGE - HMO) [id number] Missy Son [id number] Missy Son 02/17/2024 2 [employer] (MEDICARE REPLACEMENT /ADVANTAGE - HMO) [id number] Missy Son [id number] Missy Son 02/17/2024 1 [facility] (O) [id number] Missy Son [id number] Missy Son 02/17/2024 1 [employer] (MEDICARE) Missy Son [id number] Missy Son 02/17/2024 MED[place]: [facility] Missy Son [id number] Missy Son 02/17/2024 2 [employer] (MEDICARE) Missy Son [id number] Missy Son 02/17/2024 [place]: [facility] Missy Son [id number] Missy Son 02/17/2024 2 [facility] [id number] Missy Son [id number] Missy Son 10/11/2021 1 [employer] [id number] John Son [id number] Missy Son 02/17/2024 1 [employer] (MEDICARE REPLACEMENT /ADVANTAGE - PPO) [id number] Missy Son [id number] Missy Son 02/17/2024 2 [facility] (MEDICARE REPLACEMENT /ADVANTAGE - HMO) [id number] Missy Son [id number] Missy Son 03/14/2024 1 [employer] [id number] John Son [id number] Missy Son 02/17/2024 2 [facility] (HMO) [id number] Missy Son [id number] Missy Son Notes Date Note Type Note Provider Name and Address Organization Details Recorded Time 09/27/2024 text/html still continues with SOB and feeling badly..cxr at hospital was negative.. Kacie Raphael PA-C Attn: Accounting,[address] [facility], [place], [address], [facility] 09/27/2024 16:20:36 10/19/2024 text/html 3 month vs controls..also needs lomotil refilled..and zolpidem...also went to urgent care vs noxious belch..also diarrhea...also has early satiety...frequen t belching...has ruq pain also...feels like intestinal spasm on rt side... Kacie Raphael PA-C Attn: Accounting,[address] [facility], [place], [address], [facility] 10/19/2024 17:57:22 11/03/2024 text/html using AZO vs urinary pain and frequency/urgency ... Kacie Raphael PA-C Attn: Accounting,[address] [facility], [place], [address], [facility] 11/03/2024 12:33:24 01/02/2025 text/html had bile duct opened up last week...since then has developed URI symptoms...also endo scanned her thyroid and found new nodules...4..has not taken a shot of ozempic since end of November.. Kacie Raphael PA-C Attn: Accounting,[address] [place], [address], [facility] 01/02/2025 10:48:39 02/20/2025 text/html discuss weight loss and also has a nodule and thyroid..also has a wedding in 15 months...says she has cut her food back and cant lose weight..sees her endo .. Kacie Raphael PA-C Attn: Accounting,[address] [place], [address], [facility] 02/20/2025 16:29:50 OBGyn Episode No OBEpisode recorded.
--- OUTSIDE RECORDS SUMMARY | 2025-02-23 07:17 | XMS_ITS | Patient Health Record ---
Author Organization [facility] Address [address] [place] [address] [place] [id number] Care Team Providers Care Truck Rental Service Attendant Name Role Phone Jose Sharp Unavailable [phone] Mickey Raphael Unavailable Unavailable Allergies Allergen (clinical [...] Problem Status W/U Status Risk Notes Problem 520692390 Low back pain (M54.5) Active confirmed Problem 957837638 Overweight (E66.3) Active confirmed Problem 08179074 Hematuria (R31.9) Active confirmed Problem 18931594 Incontinence (R32) Active confirmed Problem 282041268 Diabetes mellitu s without complication (E11.9) Active confirmed Problem 421770708 Renal cell carcinoma (C64.9) Active confirmed Plan [...] Date Coverage End Date [employer] [address] [place] [address] [id number] Missy Barrios Self - patient is the insured [employer] Medicare [place] Part B Secondary [address] [address] [place] [address] [id number] ChristopheriselaMissy yoo Self - patient is the insured 3
--- OUTSIDE RECORDS SUMMARY | 2025-02-23 07:18 | XMS_ITS | Clinical Summary ---
Author Organization [facility] Address [address] [place] [address] Phone Care Team Providers Care Shuttlecock Feather Trimmer Name Role Phone Mickey Raphael Primary Care Provider [phone] Jovan Sneed MD Unavailable [phone] Jass Mckeon MD Unavailable Jass Mckeon MD Unavailable Allergies Active Allergy Reactions Criticality Noted Date Comments Iodine Other (see Comments) 04/25/2016 Patient says she is not supposed to use iodine because of her kidney cancer Morphine Vomiting 05/15/2016 Medications esomeprazole (NEXIUM) 40 MG CAPSULE DELAYED RELEASE 40 mg daily. 1 tablet every day 016 Active colestipol (COLESTID) 1 GM Tablet Take 1 g by mouth 2 times daily. Active pancrelipase, lipase-protea se-amylase, (CREON 54200) [address] Particles Take 1 Capsule by mouth 3 times daily (with meals). Active lisinopril-hy droCHLOROthia zide (PRINZIDE, ZESTORETIC) 20-25 MG Tablet Take 1 Tab by mouth daily. Active Glucose Blood (FREESTYLE PRECISION JALEN TEST) StripIndicati ons:Type 2 diabetes mellitus with diabetic polyneuropath y, with long-term current use of insulin ([facility]) Test sugars if patients feel they are having a low or high blood sugar 100 Strip 3 019 Active Continuous Blood Gluc Transmit (Dexcom G6 Transmitter) Misc 1 Each by Does not apply route every 90 days. Change sensor every 90 days. 1 Each 3 022 Active Additional Information Patient not taking.Reported on 02/22/2025 scopolamine (TRANSDERM-SC OP) 1 MG/3DAYS PATCH 72 HR scopolamine 1 mg over 3 days transdermal patch Apply 1 patch every 72 hours by transdermal route. Active traMADol (ULTRAM) 50 MG Tablet 1 tablet as needed Orally every 6 hrs prn pain for 15 days 016 Active temazepam (RESTORIL) 15 MG Capsule 1 capsule at bedtime as needed Orally Once a day Active diphenoxylate -atropine (Lomotil) 2.5-0.025 MG Tablet Take 2 tablets 4 times a day by oral route as needed for 5 days. 023 Active insulin regular human, CONCENTRATED, (HumuLIN R U-500 KwikPen) 500 UNIT/ML Solution Pen-injector INJECT 210 UNITS SUBCUTANEOUSLY AT BREAKFAST, 50 UNITS AT LUNCH, AND 70 UNITS AT DINNER 60 mL 1 023 Active Insulin Pen Needle (Pen [place]) 32G X 4 MM [facility] Pen Needle by Does not apply route in the morning and at bedtime. 200 Each 024 Active Continuous Glucose Molder Machine Tender (Dexcom G7 Molder Machine Tender) Device Check blood glucose before each meal and at bedtime 1 Each 024 Active fenofibrate 160 MG Tablet Take 1 Tablet by mouth daily. 90 Tablet 1 024 Active atorvastatin (LIPITOR) 40 MG Tablet Take 1 Tablet by mouth daily. 90 Tablet 1 024 Active ascorbic acid 500 MG Tablet Take 500 mg by mouth. 024 Active Cholecalcifer ol (D2000 Ultra Strength) 2000 UNIT Capsule Take 2,000 Units by mouth. 024 Active gabapentin (NEURONTIN) 100 MG Capsule Take 100-300 mg by mouth. 024 Active senna-docusat e (SENOKOT S) 8.6-50 MG Tablet Take 1-2 tablets daily prn for constipation 024 Active Continuous Glucose Sensor (Dexcom G7 Sensor) Misc CHANGE SENSOR EVERY 10 DAYS 9 Each 3 025 Active baclofen (LIORESAL) 10 MG Tablet Take 10 mg by mouth 3 times daily. Active Ozempic, 2 MG/DOSE, 8 MG/3ML Solution Pen-injector 2 mg by Subcutaneous route once a week. 6 mL 1 025 Active metFORMIN (GLUCOPHAGE) 500 MG Tablet Take 2 Tabs by mouth 2 times daily. 2 tablets twice a day 360 Tab 1 019 2024 Discontinued(M ed List Clean Up) Continuous Glucose Sensor (Dexcom G7 Sensor) Misc CHANGE SENSOR EVERY 10 DAYS 9 Each 1 024 2024 Discontinued Ozempic, 1 MG/DOSE, 4 MG/3ML Solution Pen-injector 1 mg by Subcutaneous route once a week. 9 mL 1 025 2024 Discontinued(D ose adjustment) Active Problems Problem Noted Date Diagnosed Date [...] Encounters Date Type Department Care Team Description 02/22/2025 8:30 AM CDT Office Visit [facility] Endocrinology [facility] [address] [place] [address] Jass Mckeon MD Type 2 diabetes mellitus with diabetic polyneuropathy, with long-term current use of insulin (HCC) (Primary Dx); Insulin dose changed (HCC); Medication dose changed; Hypoglycemia; Left foot pain Discharge Disposition: Discharged to home or Selfcare 02/20/2025 Travel 01/26/2025 Refill [facility] [address] [place] [address] Jass Mckeon MD Medication Refill 11/25/2024 1:00 PM CDT Office Visit [facility] Endocrinology [facility] [address] [place] [address] Jass Mckeon MD Nodular goiter (Primary Dx) Discharge Disposition: Discharged to home or Selfcare from Last 3 Months Immunizations Immunization Administration [...] Sign Reading Time Taken Comments Blood Pressure 126/80 02/22/2025 8:20 AM CDT Pulse 70 02/22/2025 8:20 AM CDT Temperature 36.3 C (97.4 F) 02/22/2025 8:20 AM CDT Respiratory Rate 22 02/22/2025 8:20 AM CDT Oxygen Saturation 97% 02/22/2025 8:20 AM CDT Inhaled Oxygen Concentration - - Weight 102.2 kg (225 lb 3.2 oz) 02/22/2025 8:20 AM CDT Height 172.7 cm (5' 8) 03/09/2024 3:35 PM CDT Body Mass Index 34.24 03/09/2024 3:35 PM CDT Plan of Treatment Upcoming Encounters Date Type Department Care Team (Late st Contact Info) Description 05/26/2025 8:00 AM CDT Office Visit [facility] [address] [place] [address] Jass Mckeon MD [address] [address] Health Maintenance Due Date Last Done Comments Diabetes: Foot Exam 1960 Hepatitis C Virus (HCV) Screening 1960 TdaP Immunization 1962 Pneumococcal Immunization (50+ years) (1 of 2 - PCV) 1981 Cologuard 12/22/2007 Colonoscopy 12/22/2007 Colorectal Cancer Screening 12/22/2007 Immunochemical Fecal Occult Blood 12/22/2007 Zoster Immunization (1 of 2) 2012 Diabetes: Nephropathy Screening 09/13/2020 09/13/2019, 09/10/2017, 07/28/2017 Respiratory Syncytial Virus (RSV) Immunization (Adult) (1 - Risk 60-74 years 1-dose series) 2022 SARS-COV-2 Immunization ( season) 2024 12/26/2020, 11/28/2020 Diabetes: Eye Exam 10/25/2024 10/26/2023, 10/01/2017 Influenza Immunization (#1) 2025 06/01/2013 Diabetes: Hemoglobin A1c 08/25/2025 025, 10/25/2024, 06/13/2024, Additional history exists Mammogram Unilateral Discontinued 05/26/2016, 09/21/19 13 Hepatitis B Immunization Aged Out No longer eligible based on patient's age to complete this topic Human Papillomavirus (HPV) Immunization Aged Out No longer eligible based on patient's age to complete this topic Meningococcal Immunization (ACWY) Aged Out No longer eligible based on patient's age to complete this topic Rotavirus Immunization Aged Out No lo nger eligible based on patient's age to complete this topic Procedures Procedure Name Priority Date/Time Associated Diagnosis Comments POCT GLYCOSYLATED HEMOGLOBIN Routine 02/22/2025 8:30 AM CDT Type 2 diabetes mellitus with [...] Maintenance Results * (ABNORMAL) POCT GLYCOSYLATED HEMOGLOBIN (02/22/2025 8:30 AM CDT) HGB-A1C 7.5(A) 4 - 6 % Blood 02/22/2025 8:30 AM CDT us Jass Mckeon MD POINT [...] contacted. Ruth Ann Garza M.D. rb/:05/26/2016 11:18:35 Wave Soldering Machine Operator: Janae Stewart(Amanda), [facility] letter sent: Normal Exam Reading location: [facility] OVERALL STUDY BIRADS: 3 Probably benign Procedure Note Ruth Ann Garza MD - 05/27/2016 - STEPHANIE DIAG BILATERAL DIGITAL W CAD [...] contacted. Ruth Ann Garza M.D. rb/:05/26/2016 11:18:35 Wave Soldering Machine Operator: Janae Stewart(Amanda), [facility] letter sent: Normal Exam Reading location: [facility] OVERALL STUDY BIRADS: 3 Probably benign Jovan Sneed MD IMG MAMMO ORDERABLES Sandra l Result from Last 3 Months or Most Recently Relevant to Health Maintenance Insurance [id number] Care Teams Shuttlecock Feather Trimmer Relationship Specialty Start Date End Date Mickey Raphael PAC [address] [place] [address] PCP - General Physician Magnetizer 04/23/16 Jovan Sneed MD [address] [address] General Surgery 05/12/16 Jass Mckeon MD [address] [phone] Consulting Physician Endocrinology 02/18/22 Jass Mckeon MD [address] [address] Consulting Physician Endocrinology 03/05/23
--- OUTSIDE RECORDS SUMMARY | 2025-02-23 07:18 | XMS_ITS | Encounter Summary ---
Author Organization [facility] Healthcare Address [address] [place] [address] Care Team Providers Care Crane Crew Supervisor Name Role Phone Mickey Raphael Primary Care Provider [phone] Angeles James MD Unavailable Kevin Zepeda MD Unavailable [phone] Johanna Perez OT Unavailable [phone] Amaury Ornelas MD Unavailable [phone] Encounter Details Date Type Department Care Team (Late st Contact Info) Description 11/26/2020 Telephone [facility] [address] [place] [id number] Sanjuanita Garner, RT Social History Tobacco Use [...] on file Legal Sex Female 11:52 PM DOCTOR OF PODIATRIC MEDICINE Gender Identity Not on file Sexual Orientation [...] documented as of this encounter Care Teams Crane Crew Supervisor Relationship Specialty Start Date End Date Mickey Raphael PA [address] [place] [address] PCP - General 11/30/17 Angeles James MD [address] [place] [address] Medical Oncologist/Frozen Food Selector Medical Oncology 03/04/18 [place] [address] [place] [address] Spouting Installer Gastroenterology 02/23/19 [place] [address] [facility] [address] [place] [address] Occupational Therapist Occupational Therapy 12/05/21 Amaury Ornelas MD [address] [place] [address] [address] [place] [address] Consulting Physician Anesthesiology 10/07/24 documented as of this encounter
--- OUTSIDE RECORDS SUMMARY | 2025-02-23 07:18 | XMS_ITS | Clinical Summary ---
Author Organization [facility] Address [address] [place] [address] Care Team Providers Care Dental Prosthetist Name Role Phone Mickey Raphael Primary Care Provider [phone] Angeles James MD Unavailable Kevin Zepeda MD Unavailable [phone] Johanna Perez OT Unavailable [phone] Amaury Ornelas MD Unavailable Allergies Active Allergy Reactions Criticality [...] 60 capsule 5 10/07/19 25 025 Active traMADoL (ULTRAM) 50 mg tablet Take 1 tablet (50 mg total) by mouth every 6 (six) hours as needed for pain 21 tablet 12/28/19 25 Active Active Problems Problem Noted Date Diagnosed Date Functional dyspepsia 11/14/2024 Nausea and vomiting 11/14/2024 Shoulder impingement, unspecified laterality Biceps tendonitis on left 06/02/2024 Arthritis of left acromioclavicular joint 2023 Nontraumatic incomplete tear of left rotator cuf f 06/02/2024 Adhesive capsulitis of left shoulder 06/02/2024 Primary osteoarthritis of fi rst carpometacarpal joint of left hand 10/16/2021 Overview (10/16/2021): Added automatically from request for surgery [id number] Carpal tunnel syndrome, left 10/16/2021 Overview (10/16/2021): Added automatically from request for surgery [id number] Blood in urine 07/17/2021 Malignant neoplasm of [...] 08/25/2017 Assessment & Plan (08/25/2017 11:22 PM C IRON WORKER): BMI Follow-up includes: nutrition counseling, exercise counseling and education provided. Hypertension 08/04/2017 Overview (08/04/2017): Will continue home medications. Blood pressure is controlled. Assessment & Plan (11/10/2017 10:10 AM CDT): Well controlled. Assessment & Plan (08/25/2017 11:23 PM C IRON WORKER): Hypertension is well controlled on lisinopril-HCTZ. Assessment & Plan (08/04/2017 10:07 AM C IRON WORKER): Will continue home medicines. Blood pressure is [...] (10/16/2021): Added automatically from request for surgery [id number] Abdominal mass 07/17/2021 04/09/2023 Acute folliculitis 07/17/2021 [...] 01/02/2020 04/09/2023 High blood pressure 12/23/2018 04/09/20 23 RVF (rectovaginal fistula) 11/18/2018 0 04/09/2023 Overview (11/18/2018): Added automatically from request for surgery [id number] Angina at rest 08/04/2017 04/09/2023 Assessment & Plan (08/04/2017 6:20 PM C IRON WORKER): Patient does not have any history of coronary artery disease. So far ruled out for acute OH. stress echocardiogram exercise test was normal. Patient has known multiple risk factors including: postmenopausal, diabetes, hypertension, dyslipidemia, family history of OH. Recommending to take daily baby aspirin, good diabetes control, follow up with primary care physician, the see a sales enablement lead if chest pain continues. Most likely her [...] 110. Assessment & Plan (08/25/2017 11:28 PM C IRON WORKER): 56 years old female with history of [...] weeks. Assessment & Plan (08/04/2017 10:23 AM C IRON WORKER): She takes metformin and basal insulin at [...] Encounters Date Type Department Care Team Description 12/27/2024 10:00 AM CDT - 12/27/2024 10:45 AM CDT Surgery [facility] [address] [place] [phone] Kevin Zepeda MD ENDO ENDOSCOPIC RETROGRADE CHOLANGIOPANCREATOGRAPHY REMOVAL STONES [GI506] 12/27/2024 9:30 AM CDT Anesthesia Event [facility] [address] [place] [address] [phone] Rich Chacon MD 12/27/2024 9:01 AM CDT - 12/27/2024 2:47 PM CDT Hospital Encounter [facility] [address] [place] [address] [phone] Kevin Zepeda MD Functional dyspepsia; Gastroesophageal reflux disease, unspecified whether esophagitis present; Nausea and vomiting, unspecified vomiting type Discharge Disposition: Discharge to home or self care 12/27/2024 6:36 AM CDT - 12/27/2024 11:59 PM CDT Hospital Encounter [facility] [address] [place] [address] [phone] Upper abdominal pain Discharge Disposition: Discharge to home or self care 12/22/2024 2:05 PM CDT [address] [phone] from Last 3 Months Immunizations Immunization Administration Dates Next Due Influenza, Trivalent, Preservative Free, Intramu scular 06/01/2013 Surgical History Surgery Date Site/Laterality Comments REDUCTION MAMMOPLASTY 1990s breast reduction APPENDECTOMY KNEE SURGERY 08/17/2008 - 08/16/2009 Left partial knee replacment; HYSTERECTOMY 08/17/1989 - 08/16/1990 PARTIAL NEPHRECTOMY 08/17/2010 - 08/16/2011 1/2 of right kidney and 08/20 of left [...] Date Smoking Tobacco: Every Day Cigarettes 0.1 41.5 Started: 1983 Smokeless Tobacco: Never Tobacco Cessation:Ready to Q uit: Not Asked; Counseling Given: Not Answered Comments:social smoker, less than 1 pack per month Alcohol Use Standard Drinks/Week Comments Not Currently 0 (1 standard drink = 0.6 oz pur e alcohol) AUDIT-C Answer Date Recorded Q1: How often do you have a drink containing alcohol? Never 12/27/2024 Q2: How many drinks containi ng alcohol do you have on a typical day when you are drinking? Patient does not drink Q3: How often do you have si x or more drinks on one occasion? Never 12/27/2024 PHQ-2 Answer Date Recorded PHQ-2 Total Score (If total score is 3 or more points, staff should administer the PHQ-9) 5 09/01/2024 PHQ-9 Answer Date Recorded PHQ-9 Total Score 12 09/01/2024 Personal Safety Answer Date Recorded Have you ever been in or are you currently in a harmful physical or emotional relationship or is someone making you feel afraid or unsafe? Denies 12/27/2024 Comments No Sex and Gender Information Value Date Recorded Sex Assigned at Not on file Legal Sex Female 11:52 PM C IRON WORKER Gender Identity Not on file Sexual Orientation Not on file Obstetrics History Last Filed Vital Signs Vital Sign Reading Time Taken Comments Blood Pressure 145/84 12/27/2024 2:25 PM CDT Pulse 88 12/27/2024 2:25 PM CDT Temperature 36.6 C (97.8 F) 12/27/2024 9:22 AM CDT Respiratory Rate 14 12/27/2024 2:25 PM CDT Oxygen Saturation 96% 12/27/2024 2:25 PM CDT Inhaled Oxygen Concentration - - Weight 100.7 kg (222 lb) 12/27/2024 9:29 AM CDT Height 172.7 cm (5' 8) 12/27/2024 9:29 AM CDT Body Mass Index 33.75 12/27/2024 9:29 AM CDT Plan of Treatment Health Maintenance Due Date [...] 10/2019, 06/08/2019, Additional history exists Covid-19 Vaccine (3 - 2023-2 5 season) 2024 12/26/2020, 11/28/2020 Hemoglobin A1C 11/03/2024 05/06/2024, 12/0 08/2020, 08/25/2017, Additional history exists Influenza Vaccine (#1) 2025 06/01/2013 Colon Cancer Screening-Colonoscopy 05/29/2025 05/29/2015, 12/28/2013 Depression Screening 09/01/2025 09/01/2024, 09/01/2024, 08/25/2017 Colon Cancer Screening-CT Colonography Discontinued 05/29/2015, 12/28/2013 Colon Cancer Screening-DNA Stool Discontinued 05/29/20 15, 12/28/2013 Colon Cancer Screening-FIT Discontinued 05/29/2015, Colon Cancer Screening-Sigmoidoscopy Discontinued 05/29/2015, 12/28/2013 Medical Devices Implanted Type Area Internal Medicine Physician Device Identifier Shelf Expiration Date Model / Serial / Lot [employer] Ar-[id number] Dx Swivelock Sl 3.5mm 8.5mm Fork Eyelet Cubero Suture Sterile - [id number] Implanted:Qty: 1 on 11/04/2021 by Rodger Ramachandran MD at [facility] Left: Wrist [employer] 05/16/2026 AR-[id number] / / [id number] [employer] Ar-[id number] Arthrex Dx Fibertak Needle Cubero Suture Sterile Latex Free - [id number] Implanted:Qty: 1 on 11/04/2021 by Rodger Ramachandran MD at [facility] Left: Wrist [employer] 06/16/2026 AR-[id number] / / [id number] Procedures Procedure Name Priority Date/Time Associated Diagnosis Comments ERCP IP Routine 12/27/2024 9:46 AM CDT Functional dyspepsia Gastroesophageal reflux disease, unspecified whether esophagitis present Nausea and vomiting, unspecified vomiting type ERCP Schedule Routine, Read Routine (OP Routine) 12/27/2024 9:42 AM CDT Upper abdominal pain POCT GLUCOSE DEVICE Routine 12/27/2024 9 :24 AM CDT ERCP 12/27/2024 9:17 AM CDT DIFFERENTIAL AUTO Routine 12/22/2024 2:2 0 PM CDT HEPATIC FUNCTION PANEL Routine 12/22/2024 2:20 PM CDT CBC WITH AUTO DIFFERENTIAL Routine 12/22/2024 2:20 PM CDT HEMOGLOBIN A1C Routine 05/06/2024 3:24 PM CDT EGFR Routine 11/27/2020 7:05 AM CDT LIPID PANEL Routine 11/11/2017 5:37 AM CDT COLONOSCOPY REPORT 05/29/2015 from Last 3 Months or Most Recently Relevant to Health Maintenance Results * [place] ERCP (12/27/2024 9:42 AM CDT) Narrative [facility] - 12/27/2024 9:43 AM CDT The images from this study are not interpreted by Radiology. Please refer to the physician's procedure / OR operative note. Kevin Zepeda MD IMG FLUOROSCOPY PROCEDURES Final Result Performing Organization Address City/[facility]/ZIP Co de Phone Number [facility] * POCT glucose (12/27/2024 9:24 AM CDT) [facility] Signature Glucose, POC 97 70 - 199 mg/dL Comment: For Glucose values <35 mg/dl when Hematocrit is >60 mg/dl,the test may not accurately detect significant hypoglycemia,and testing in the Laboratory should be considered if clinically indicated. POC Performer [phone] [facility] Blood 12/27/2024 9:24 AM CDT 12/27/2024 9:24 AM CDT Kevin Zepeda MD LAB POCT ORDERABLES - BRISEYDA CE Final Result [facility] [address] Department [place] [address] * ERCP (12/27/2024 9:17 AM CDT) Anatomical Region Laterality Modality Other Narrative Procedure Note Kevin Zepeda MD - 12/27/2024 9:17 AM CDT ENDOSCOPY LAB Patient Name: Missy Barrios Procedure Date: 12/27/2024 9:17 AM Admit Type: Outpatient Room: [facility] Date of : 1960 Instrument Name: [id number]-[id number] Gender: Female Note Status: Finalized Procedure: ERCP Indications: Bile duct stone(s), Abdominal pain of suspected biliary origin, Abdominal pain in the right upper quadrant, Evaluation and possible treatment of bile duct stone(s) Providers: Kevin Zepeda M.D. Referring MD: Mickey Raphael PA-C Medicines: Monitored Anesthesia Care Complications: No immediate complications. Estimated blood loss:None Estimated Blood Loss: Estimated blood loss: none. Procedure: The benefits, risks, and alternatives to theprocedure and sedation were discussed and informed consentwas obtained. The TJF-Q392 was introduced through the mouth, and used to inject contrast into and used to inject contrast into the bile duct. The ERCP was accomplished without difficulty. The patienttolerated the procedure well. Findings: Patent previous biliary sphincterotomy. Dilated common bile duct to 9 mm s/p cholecystectomy with delayed contrast emptying. Balloon sweep of microlithiasis were done with good bile drainage. Pancreatic duct was not evaluated. Impression: Patent previous biliary sphincterotomy. Dilated common bile duct to 9 mm s/pcholecystectomy with delayed contrast emptying. Balloon sweep of microlithiasis were done with good bile drainage. Pancreatic duct was not evaluated. Recommendation: - Avoid aspirin and nonsteroidal anti-inflammatory medicines for 3 days. - Clear liquid diet today and low fat diettomorrow. - Return to GI clinic in 4 weeks. - If abdominal pain, nausea, vomiting, black loose stool or you are concern of symptoms, pleasecontact me at [phone] or go to the emergency room. - If dyspepsia n/v persists consider gastricemptying study. Kevin Zepeda M.D. Kevin Zepeda M.D. 12/27/2024 9:57:42 AM Number of Addenda: 0 Note Initiated On: 12/27/2024 9:17 AM Scope In: Scope Out: Kevin Zepeda MD ENDOSCOPY PROCEDURES Final Result * Differential, auto (12/22/2024 2:20 PM CDT) Neutrophil abs 5.83 1.50 - 6.50 K/cumm Imm gran abs 0.03 0.00 - 0.10 K/cumm [facility] ([facility]) Lymphocyte abs 3.07 0.80 - 3.30 K/cumm [facility] ([facility]) Monocyte abs 0.63 0.20 - 0.80 K/cumm [facility] ([facility]) Eosinophil abs 0.23 0.00 - 0.50 K/cumm [facility] ([place]) Basophil abs 0.07 0.00 - 0.10 K/cumm [facility] ([facility]) Neutrophil pct 59.2 % [facility] ([facility]) Comment: Interpretive Data Percent cell count reference ranges are not reported, since discordance with absolute values may lead to misinterpretation of CBC data. Current Interpretive Data was last revised on 2017. Imm gran pct 0.3 % [facility] ([facility]) Comment: Interpretive Data Percent cell count reference ranges are not reported, since discordance with absolute values may lead to misinterpretation of CBC data. Current Interpretive Data was last revised on 2017. Lymphocyte pct 31.1 % [facility] ([facility]) Comment: Interpretive Data Percent cell count reference ranges are not reported, since discordance with absolute values may lead to misinterpretation of CBC data. Current Interpretive Data was last revised on 2017. Monocyte pct 6.4 % [facility] ([facility]) Comment: Interpretive Data Percent cell count reference ranges are not reported, since discordance with absolute values may lead to misinterpretation of CBC data. Current Interpretive Data was last revised on 2017. Eosinophil pct 2.3 % [facility] ([facility]) Comment: Interpretive Data Percent cell count reference ranges are not reported, since discordance with absolute values may lead to misinterpretation of CBC data. Current Interpretive Data was last revised on 2017. Basophil pct 0.7 % [facility] ([facility]) Comment: Interpretive Data Percent cell count reference ranges are not reported, since discordance with absolute values may lead to misinterpretation of CBC data. Current Interpretive Data was last revised on 2017. Blood 12/22/2024 2:20 PM CDT 12/22/2024 2:29 PM CDT us Kevin Zepeda MD LAB BLOOD ORDERABLES Final Result [facility] ([place] [facility]) 1 [facility] Department [place] [address] * (ABNORMAL) CBC with auto differential (12/22/2024 2:20 PM CDT) WBC 9.86 3.80 - 9.90 K/cumm Hgb 13.7 11.9 - 15.5 g/dL [facility] ([facility]) Hct 40.4 35.6 - 45.5 % [facility] ([place]) Plt 311 150 - 400 K/cumm [facility] ([facility]) MPV 8.4(L) 9.1 - 12.3 fL [facility] ([place]) RBC 4.64 3.90 - 5.20 M/cumm [facility] ([place]) MCV 87.1 81.3 - 96.4 fL [facility]) MCH 29.5 27.1 - 33.3 pg [facility] ([place]) MCHC 33.9 32.3 - 35.7 g/dL [facility] ([place]) RDW CV 13.3 11.1 - 14.9 % [facility] RDW SD 41.8 35.7 - 48.1 fL [facility] ([place]) NRBC abs 0.00 0.00 - 0.01 K/cumm [facility] ([facility]) Blood 12/22/2024 2:20 PM CDT 12/22/2024 2:29 PM CDT Kevin Zepeda MD LAB BLOOD ORDERABLES Final Result Performing Organization Address City/[facility] Co de Phone Number [facility] 1 [facility] [place] [address] * Hepatic function panel (12/22/2024 2:20 PM CDT) Bilirubin, total 0.4 0.1 - 1.2 mg/dL Bilirubin, direct 0.2 0.1 - 0.3 mg/dL [facility] ([place]) Protein, pl 7.3 6.5 - 8.5 g/dL [facility]) Albumin 3.6 3.5 - 5.0 g/dL [facility] ([place]) Alk phos 98 40 - 130 Units/L [facility] ([place]) ALT 29 7 - 45 Units/L [facility]) AST 27 10 - 45 Units/L [facility] ([facility]) Blood 12/22/2024 2:20 PM CDT 12/22/2024 2:29 PM CDT Kevin Zepeda MD LAB BLOOD ORDERABLES Final Result [facility] 1 [facility] [place] [address] * (ABNORMAL) Hemoglobin A1c (05/06/2024 3:24 PM CDT) Hgb A1C 6.9(H) 4.0 - 5.6 % Estimated Average Glucose 151 mg/dL [facility] ([place]) Comment: The ADA recommends reporting an estimated Average Glucose (eAG) with all Hemoglobin A1c results using the equation derived from a study of 507 normal and diabetic adults. Minority populations were underrepresented and children were not included. (Diabetes Care 31:2835-4249, 2008). The eAG is not equivalent to a fasting glucose. Blood 05/06/2024 3:24 PM CDT 05/06/2024 3:34 PM CDT us Jass Mckeon MD LAB BLOOD ORDERABLES Final Resul t [facility] [facility] 1 [facility] Department [place] [address] * eGFR (11/27/2020 7:05 AM CDT) eGFR 100 mL/min/1.7 3 m2 [facility] [facility]) Comment: Interpretive Data Reference Interval Normal >/= [...] Final Re sult [facility] ([place]) 1 [facility] Department [place] [address] * (ABNORMAL) Lipid panel (11/11/2017 5:37 AM [...] Final Re sult [facility] ([place]) 1 [facility] Department [place] [address] * COLONOSCOPY REPORT (05/29/2015) Anatomical Region Laterality Modality Other Narrative 05/29/2015 Ordered by an unspecified provider. 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 ADVANCE DIRECTIVE 04/15/2017 Advance Di rective Checklist * Full Code (Latest Code Status on File) Date Activated Date Inactivated Comments 12/27/2024 9:08 AM 12/27/2024 6:48 PM * Full Code Date Activated Date Inactivated Comments 11/09/2017 6:43 PM 11/11/2017 8:43 PM * Full Code Date Activated Date Inactivated Comments 08/03/2017 6:24 PM 08/05/2017 12:42 AM Care Teams Dental Prosthetist Relationship Specialty Start Date End Date Mickey Raphael PA [address] [place] [address] PCP - General 11/30/17 Angeles James MD [address] [place] [address] Medical Oncologist/Chrome Polisher Medical Oncology 03/04/18 [place] [address] [place] [address] Grants Manager Gastroenterology 02/23/19 [place] [address] [facility] [address] [place] [address] Occupational Therapist Occupational Therapy 12/05/21 Amaury Ornelas MD [address] [place] [address] [address] BR[address] [place] [address] Consulting Physician Anesthesiology 10/07/24
--- OUTSIDE RECORDS SUMMARY | 2025-02-23 07:18 | XMS_ITS | Referral Summary ---
Author Organization [facility] Address [address] [place] [address] Care Team Providers Care Motion Picture Operator Name Role Phone Mickey Raphael Primary Care Provider [phone] Angeles James MD Unavailable Kevin Zepeda MD Unavailable Johanna Perez OT Unavailable Amaury Ornelas MD Unavailable [phone] Encounters Date Type Department Care Team Description 12/27/2024 9:30 AM CDT Anesthesia Event [facility] [address] [place] [phone] Rich Chacon MD 12/27/2024 6:36 AM CDT - 12/27/2024 11:59 PM CDT Hospital Encounter [facility] [address] [place] [phone] Upper abdominal pain Discharge Disposition: Discharge to home or self care 12/27/2024 10:00 AM CDT - 12/27/2024 10:45 AM CDT Surgery [facility] [address] [place] [phone] Kevin Zepeda MD ENDO ENDOSCOPIC RETROGRADE CHOLANGIOPANCREATOGRAPHY REMOVAL STONES [GI506] 12/27/2024 9:01 AM CDT - 12/27/2024 2:47 PM CDT Hospital Encounter [facility] [address] [place] [address] Kevin Zepeda MD Functional dyspepsia; Gastroesophageal reflux disease, unspecified whether esophagitis present; Nausea and vomiting, unspecified vomiting type Discharge Disposition: Discharge to home or self care 12/22/2024 2:05 PM CDT [address] [address] from Last 3 Months Allergies Active Allergy [...] (10/16/2021): Added automatically from request for surgery [id number] Carpal tunnel syndrome, left 10/16/2021 Overview (10/16/2021): Added automatically from request for surgery [id number] Blood in urine 07/17/2021 Malignant neoplasm of [...] 08/25/2017 Assessment & Plan (08/25/2017 11:22 PM SHAKE BACKBOARD NOTCHER): BMI Follow-up includes: nutrition counseling, exercise counseling and education provided. Hypertension 08/04/2017 Overview (08/04/2017): Will continue home medications. Blood pressure is controlled. Assessment & Plan (11/10/2017 10:10 AM CDT): Well controlled. Assessment & Plan (08/25/2017 11:23 PM SHAKE BACKBOARD NOTCHER): Hypertension is well controlled on lisinopril-HCTZ. Assessment & Plan (08/04/2017 10:07 AM SHAKE BACKBOARD NOTCHER): Will continue home medicines. Blood pressure is [...] (10/16/2021): Added automatically from request for surgery [id number] Abdominal mass 07/17/2021 04/09/2023 Acute folliculitis 07/17/2021 [...] (11/18/2018): Added automatically from request for surgery [id number] Angina at rest 08/04/2017 04/09/2023 Assessment & Plan (08/04/2017 6:20 PM SHAKE BACKBOARD NOTCHER): Patient does not have any history of coronary artery disease. So far ruled out for acute DC. stress echocardiogram exercise test was normal. Patient has known multiple risk factors including: postmenopausal, diabetes, hypertension, dyslipidemia, family history of DC. Recommending to take daily baby aspirin, good diabetes control, follow up with primary care physician, the see a product safety expert if chest pain continues. Most likely her [...] 110. Assessment & Plan (08/25/2017 11:28 PM SHAKE BACKBOARD NOTCHER): 56 years old female with history of [...] weeks. Assessment & Plan (08/04/2017 10:23 AM SHAKE BACKBOARD NOTCHER): She takes metformin and basal insulin at [...] on file Legal Sex Female 11:52 PM SHAKE BACKBOARD NOTCHER Gender Identity Not on file Sexual Orientation [...] 12/27/2024 9:29 AM CDT Plan of Treatment Not on file Medical Devices Implanted Type Area Rail Layer Device Identifier Shelf Expiration Date Model / Serial / Lot [employer] Ar-8978p Dx Swivelock Sl 3.5mm 8.5mm Fork Eyelet Britton Suture Sterile - [id number] Implanted:Qty: 1 on 11/04/2021 by Rodger Ramachandran MD at [facility] Left: Wrist [employer] 05/16/2026 AR-[id number] / / [id number] [employer] Ar-[id number] Arthrex Dx Fibertak Needle Britton Suture Sterile Latex Free - [id number] Implanted:Qty: 1 on 11/04/2021 by Rodger Ramachandran MD at [facility] Left: Wrist [employer] 06/16/2026 AR-[id number] / / [id number] Procedures Procedure Name Priority Date/Time Associated Diagnosis [...] (12/27/2024 9:42 AM CDT) Narrative [facility] - 12/27/2024 9:43 AM CDT The images from this study are not interpreted by Radiology. Please refer to the physician's procedure / OR operative note. us Kevin Zepeda MD IMG FLUOROSCOPY PROCEDURES Final Result [facility] * POCT glucose (12/27/2024 9:24 AM CDT) Glucose, POC 97 70 - 199 mg/dL Comment: For Glucose values <35 mg/dl when Hematocrit is >60 mg/dl,the test may not accurately detect significant hypoglycemia,and testing in the Laboratory should be considered if clinically indicated. POC Performer [id number] TIM [facility] Blood 12/27/2024 9:24 AM CDT 12/27/2024 9:24 AM CDT us Kevin Zepeda MD LAB POCT ORDERABLES - BRISEYDA CE Final Result [facility] [address] Department [place] [address] * ERCP (12/27/2024 9:17 AM CDT) Anatomical Region Laterality Modality Other Narrative Procedure Note Kevin Zepeda MD - 12/27/2024 9:17 AM CDT ENDOSCOPY LAB Patient Name: Missy Barrios Procedure Date: 12/27/2024 9:17 AM Admit Type: Outpatient Room: [facility] 9 Date of : 1960 Instrument Name: [id number] [...] are concern of symptoms, pleasecontact me at [phone] or go to the emergency room. - If dyspepsia n/v persists consider gastricemptying study. Kevin Zepeda M.D. Kevin Zepeda M.D. 12/27/2024 9:57:42 AM Number of Addenda: 0 Note Initiated On: 12/27/2024 9:17 AM Scope In: Scope Out: us Kevin Zepeda MD ENDOSCOPY PROCEDURES Final Result [...] LAB BLOOD ORDERABLES Final Result [facility] ([place]) [address] [facility] Department [place] [address] * (ABNORMAL) CBC with auto differential (12/22/2024 2:20 PM CDT) WBC 9.86 3.80 - 9.90 K/cumm Hgb 13.7 11.9 - 15.5 g/dL [facility] ([place]) Hct 40.4 35.6 - 45.5 % [facility] ([place]) Plt 311 150 - 400 K/cumm [facility] ([place]) MPV 8.4(L) 9.1 - 12.3 fL [facility] ([place]) RBC 4.64 3.90 - 5.20 [...] NRBC abs 0.00 0.00 - 0.01 K/cumm [facility] Blood 12/22/2024 2:20 PM CDT 12/22/2024 2:29 PM CDT us Kevin Zepeda MD LAB BLOOD ORDERABLES Final Result [facility] ([place]) [facility] Department [place] [address] * Hepatic function panel (12/22/2024 2:20 PM CDT) Bilirubin, total 0.4 0.1 - 1.2 mg/dL Bilirubin, direct 0.2 0.1 - 0.3 mg/dL [facility] ([place]) Protein, pl 7.3 6.5 - 8.5 g/dL [facility] ([place]) Albumin 3.6 3.5 - 5.0 g/dL [facility] ([place]) Alk phos 98 40 - 130 Units/L [facility] ([place]) ALT 29 7 - 45 Units/L [facility] ([place]) AST 27 10 - 45 Units/L [facility] ([place]) Blood 12/22/2024 2:20 PM CDT 12/22/2024 2:29 PM CDT us Kevin Zepeda MD LAB BLOOD ORDERABLES Final Result [facility] ([place]) 1 [facility] [place] [address] * (ABNORMAL) Hemoglobin A1c (05/06/2024 3:24 PM CDT) Hgb A1C 6.9(H) 4.0 - 5.6 % Estimated Average Glucose 151 mg/dL [facility] ([place]) Comment: The ADA recommends reporting an estimated Average Glucose (eAG) with all Hemoglobin A1c results using the equation derived from a study of 507 normal and diabetic adults. Minority populations were underrepresented and children were not included. (Diabetes Care 31:6729-8339, 2008). The eAG is not equivalent to a fasting glucose. Blood 05/06/2024 3:24 PM CDT 05/06/2024 3:34 PM CDT us Jass Mckeon MD LAB BLOOD ORDERABLES Final Resul t [facility] ([place]) 1 [facility] [place] [address] * eGFR (11/27/2020 7:05 AM CDT) eGFR 100 mL/min/1.[address] [facility] ([place]) Comment: Interpretive Data Reference Interval Normal >/= [...] BLOOD ORDERABLES Final Re sult [facility] ([place]) [facility] Department [place] [address] * (ABNORMAL) Lipid panel (11/11/2017 5:37 AM [...] 11/11/2017 6:05 AM CDT Narrative [facility] ([place]) - 11/11/2017 7:07 AM CDT Patient was not fasting Tamara Bradford MD LAB BLOOD ORDERABLES Final Re sult [facility] ([place]) [address] [facility] Department [place] [address] * COLONOSCOPY REPORT (05/29/2015) Anatomical Region Laterality Modality Other Narrative 05/29/2015 Ordered by an unspecified provider. Historical Provider GI PROCEDURE ORDERABLES F inal Result from Last 3 Months or Most Recently Relevant to Health Maintenance Insurance [facility] MEDICARE [facility] MEDIC[facility] Address: [place] [id number] Advance Directives For more information, please contact: [phone] Documents on File Type Date Recorded Patient Em Physician Expl anation ADVANCE DIRECTIVE 04/15/2017 Advance Di rective Checklist * Full Code (Latest Code Status on File) Date Activated Date Inactivated Comments 12/27/2024 9:08 AM 12/27/2024 6:48 PM * Full Code Date Activated Date Inactivated Comments 11/09/2017 6:43 PM 11/11/2017 8:43 PM * Full Code Date Activated Date Inactivated Comments 08/03/2017 6:24 PM 08/05/2017 12:42 AM Care Teams Motion Picture Operator Relationship Specialty Start Date End Date Mickey Raphael PA [address] [place] [address] PCP - General 11/30/17 Angeles James MD [address] [place] [address] Medical Oncologist/Candy Spreader Helper Medical Oncology 03/04/18 [place] [address] [place] [address] Manufacturing Executive Gastroenterology 02/23/19 Johanna Perez, THEE [address] [facility] [address] [place] [address] Occupational Therapist Occupational Therapy 12/05/21 Amaury Ornelas MD [address] [place] [address] [address] Consulting Physician Anesthesiology 10/07/24
--- OUTSIDE RECORDS SUMMARY | 2025-02-23 07:18 | XMS_ITS ---
Author Organization [facility] Address [address] [place] [address] Care Team Providers Care Head Of Sales Name Role Phone Mickey Raphael Primary Care Provider [phone] Angeles James MD Unavailable Kevin Zepeda MD Unavailable Johanna Perez OT Unavailable [phone] Amaury Ornelas MD Unavailable [phone] Active Problems Problem Noted Date Diagnosed Date Functional dyspepsia 11/14/2024 Nausea and vomiting 11/14/2024 Shoulder impingement, unspecified laterality Biceps tendonitis on left 06/02/2024 Arthritis of left acromioclavicular joint 2023 Nontraumatic incomplete tear of left rotator cuf f 06/02/2024 Adhesive capsulitis of left shoulder 06/02/2024 Primary osteoarthritis of fi rst carpometacarpal joint of left hand 10/16/2021 Overview (10/16/2021): Added automatically from request for surgery [id number] Carpal tunnel syndrome, left 10/16/2021 Overview (10/16/2021): Added automatically from request for surgery [id number] Blood in urine 07/17/2021 Malignant neoplasm of [...] 08/25/2017 Assessment & Plan (08/25/2017 11:22 PM TACTICAL DEBRIEFER OFFICER): BMI Follow-up includes: nutrition counseling, exercise counseling and education provided. Hypertension 08/04/2017 Overview (08/04/2017): Will continue home medications. Blood pressure is controlled. Assessment & Plan (11/10/2017 10:10 AM CDT): Well controlled. Assessment & Plan (08/25/2017 11:23 PM TACTICAL DEBRIEFER OFFICER): Hypertension is well controlled on lisinopril-HCTZ. Assessment & Plan (08/04/2017 10:07 AM TACTICAL DEBRIEFER OFFICER): Will continue home medicines. Blood pressure is [...] Automatic Entry Manual Entr y Fluoro Time 2.208 minutes 2.208 minutes 0 minutes Air kerma at the reference point (Ka,r) 145.013 mGy 1 45.013 mGy 0 mGy Resolved Problems Problem Noted Date Diagnosed Date Resolved Date De Quervain's tenosynovitis 10/16/2021 04/09/2023 Overview (10/16/2021): Added automatically from request for surgery [id number] Abdominal mass 07/17/2021 04/09/2023 Acute folliculitis 07/17/2021 [...] (11/18/2018): Added automatically from request for surgery [id number] Angina at rest 08/04/2017 04/09/2023 Assessment & Plan (08/04/2017 6:20 PM TACTICAL DEBRIEFER OFFICER): Patient does not have any history of coronary artery disease. So far ruled out for acute TN. stress echocardiogram exercise test was normal. Patient has known multiple risk factors including: postmenopausal, diabetes, hypertension, dyslipidemia, family history of TN. Recommending to take daily baby aspirin, good diabetes control, follow up with primary care physician, the see a gear coding machine operator if chest pain continues. Most likely [...] 110. Assessment & Plan (08/25/2017 11:28 PM TACTICAL DEBRIEFER OFFICER): 56 years old female with history of [...] weeks. Assessment & Plan (08/04/2017 10:23 AM TACTICAL DEBRIEFER OFFICER): She takes metformin and basal insulin at [...]
--- OUTSIDE RECORDS SUMMARY | 2025-02-23 07:18 | XMS_ITS | Clinical Summary ---
Author Organization [facility] Address [facility] [place] [address] Care Team Providers Care Finished Cigar Maker Name Role Phone Unavailable Primary Care Provider Unavailabl e Social History Tobacco Use Types Packs/Day Years Used Date Smoking Tobacco: Never Assessed Comments Unknown Sex and Gender Information Value Date Recorded Sex Assigned at Not on file Legal Sex Female 5:50 PM VICE PRESIDENT INVESTOR RELATIONS Gender Identity Not on file Sexual Orientation [...] Screening with HPV 1992 Mammogram Screening 2002 Pneumococcal Vaccine: 50+ Ye ars (1 of 1 - PCV) 2012 Zoster Vaccines (1 of 2) 2012 COVID-19 Vaccine (2023-2 5 season) 2024 RSV Immunization or 60+ Years (1 [...]
--- OUTSIDE RECORDS SUMMARY | 2025-02-23 07:18 | XMS_ITS | Clinical Summary ---
Author Organization [facility] Address [address] [place] [address] Care Team Providers Care Final Rail Cutter Name Role Phone Mickey Raphael Primary Care Provider [phone] Source Comments [facility],non-owned Affiliates and Associated Physician Practices is amultiple site organization consisting of ambulatory clinics and hospital sitesin [place], [place] and [place]. This disclosure is being madepursuant to the Care Everywhere program and may not contain all information available regarding this patient. Last updated 18.[employer] [facility] Allergies Active Allergy Reactions Criticality Noted Date [...] 2 diabetes mellitus without complications 1 09/29/2012 Overview (11/16/2024): IMO 11/16/2024 Abnormal levels of other serum enzymes 3 [...] = 0.6 oz pur e alcohol) Comments Unknown Sex and Gender Information Value Date Recorded Sex Assigned at Not on file Legal Sex Female 6:27 PM BAR HOST/HOSTESS Gender Identity Not on file Sexual Orientation Not on file Last Filed Vital Signs Vital Sign Reading Time Taken Comments Blood Pressure 123/93 08/30/2013 11:19 AM BAR HOST/HOSTESS Pulse 83 08/30/2013 11:19 AM BAR HOST/HOSTESS Temperature 36.5 C (97.7 F) 08/30/2013 11:19 AM BAR HOST/HOSTESS Respiratory Rate 18 08/30/2013 11:19 AM BAR HOST/HOSTESS Oxygen Saturation - - Inhaled Oxygen Concentration - - Weight 99.6 kg (219 lb 9.6 oz) 08/30/2013 11:19 AM BAR HOST/HOSTESS Height 172.7 cm (5' 8) 08/30/2013 11:19 AM BAR HOST/HOSTESS Body Mass Index 33.39 08/30/2013 11:19 AM BAR HOST/HOSTESS Plan of Treatment Health Maintenance Due Date Last Done Comments COLOGUARD (AGES 45-75) - COL ON CA SCREENING 1960 COLON MONITORING 1960 COLONOSCOPY - COLON CA SCREENING 1962 CT COLONOGRAPHY - COLON CA SCREENING 1960 Colorectal Cancer Screening 1960 FIT - COLON CA SCREENING 1962 FLEX SIG - COLON CA SCREENING 1960 LIPID TESTING 1960 MAMMOGRAM 1962 HIV SCREENING 1977 DTAP/TDAP/TD VACCINES (1 - Tdap) 1981 PNEUMOCOCCAL VACCINE 50+ (1 of 2 - PCV) 1981 ZOSTER VACCINE (1 of 2) 2012 COVID-19 VACCINE ( - 2023-2 5 season) 2024 DEPRESSION SCREENING 08/17/2024 INFLUENZA VACCINE (Season Ended) 2025 Respiratory Syncytial Virus (RSV) Vaccine Pt: or [...] to complete this topic MENINGOCOCCAL (Group B) VACC INE SHARED DECISION-MAKING Aged Out No longer eligibl e based on patient's age to complete this topic MENINGOCOCCAL GROUPS A/C/Y/W VACCINE Aged Out No longer eligible b ased on patient's age to complete this topic Procedures Procedure Name Priority Date/Time Associated Diagnosis Comments HEPATITIS C ANTIBODY Routine 07/29/2013 2:58 PM BAR HOST/HOSTESS from Last 3 Months or Most Recently Relevant to Health Maintenance Results * HEPATITIS C ANTIBODY (07/29/2013 2:58 PM BAR HOST/HOSTESS) Hepatitis C Antibody NONREACTIVE NONREACTIVE [facility] Comment: Anti-HCV screen indicates no serologic evidence of past or current infection with Hepatitis C Virus. Patients with unexplained liver disease who are immunocompromised or suspected of having acute Hepatitis C infection may benefit from Nucleic Acid Test (MICHELLE) for Hepatitis C Viral RNA to confirm Hepatitis C status. 07/29/2013 2:58 PM BAR HOST/HOSTESS 07/29/2013 4:08 PM BAR HOST/HOSTESS Adryan Palafox MD LAB - CHEMISTRY ORDERAB LES Final Result [address] [phone] from Last 3 Months or Most Recently Relevant to Health Maintenance Care Teams Final Rail Cutter Relationship Specialty Start Date End Date Mickey Raphael PA [address] [place] [address] PCP - General 07/29/13
--- OUTSIDE RECORDS SUMMARY | 2025-02-23 07:18 | XMS_ITS | Encounter Summary ---
Author Organization [facility] Address [address] [place] [address] Phone Care Team Providers Care Deputy Sheriff Bailiff Name Role Phone Mickey Raphael Primary Care Provider [phone] Jovan Sneed MD Unavailable [phone] Jass Mckeon MD Unavailable Jass Mckeon MD Unavailable Reason for Visit * Reason Comments Diabetes Mellitus Encounter Details Date Type Department Care Team (Late st Contact Info) Description 02/22/2025 8:30 AM CDT Office Visit [facility] - Endocrinology - [place] [address] [place] [address] Jass Mckeon MD [address] [phone] Type 2 diabetes mellitus with diabetic polyneuropathy, with long-term current use of insulin (HCC) (Primary Dx); Insulin dose changed (HCC); Medication dose changed; Hypoglycemia; Left foot pain Discharge Disposition: Discharged to home or Selfcare Social History Tobacco Use Types Packs/Day Years Used Date Smoking Tobacco: Some Days Smokeless Tobacco: Never Comments:SMOKES ONE CIGARETT E A DAY Alcohol Use Standard Drinks/Week Comments Yes 0 (1 standard drink = 0.6 oz pur e alcohol) rarely Comments No Sex and Gender Information Value Date Recorded Sex Assigned at Not on file Legal Sex Female 9:42 PM CDT Gender Identity Not on file Sexual Orientation Not on file documented as of this encounter Last Filed Vital Signs Vital Sign Reading Time Taken Comments Blood Pressure 126/80 02/22/2025 8:20 AM CDT Pulse 70 02/22/2025 8:20 AM CDT Temperature 36.3 C (97.4 F) 02/22/2025 8:20 AM CDT Respiratory Rate 22 02/22/2025 8:20 AM CDT Oxygen Saturation 97% 02/22/2025 8:20 AM CDT Inhaled Oxygen Concentration - - Weight 102.2 kg (225 lb 3.2 oz) 02/22/2025 8:20 AM CDT Height - - Body Mass Index 34.24 03/09/2024 3:35 PM CDT documented in this encounter Patient Instructions * Patient Instructions* Jass Mckeon MD - 02/22/2025 8:30 AM CDT Please take U 500 insulin 180-70-50 units before each meal Please increase Ozempic to 2 mg SC weekly Please monitor blood sugar before each meal and at bedtime Please bring blood sugar log for review at the next visit Contact Endocrinology Clinic for low blood sugar events Follow up visit in 3 months RULE OF 15: If you have signs/symptoms of low blood sugar (hypoglycemia),and/or your blood sugar isless than 70 mg/dl, you may choose one of the below treatments (~15 gm of carbohydrate):glucose tablets or 1?2 glass (4 oz.) of apple juice or 1/2 glass (4 oz.) of clear regular soda and recheck blood sugar in 15 minutes, If not above 80 mg/dl, retreat treatment until blood sugar is above 80 mg/dl.Once blood sugar is above 80-90 mg/dL, please give insulin as scheduled. Look at your feet, top and bottom every morning. If you have any signs of infection, such as:areas,change in feeling or temperature, swelling, blisters, or cracks in the skin, call your doctor rightaway. Apply lotion to dry skin areas to prevent cracks. Keep the skin between your toes clean and dry. documented in this encounter Progress Notes * Leesa Torrez RN - 02/22/2025 8:30 AM CDT Attached media from the original note were not included. Dexcom CGM download attached. * Jass Mckeon MD - 02/22/2025 8:30 AM CDT Subject&Objective Missy Barrios is a 64-year-old woman who comes to the Endocrinology office to discuss management of type 2 diabetes mellitus. The patient's diabetes is complicated by lower extremity sensory neuropathy. Other pertinent health history includes hypertension, dyslipidemia, nodular goiter, and obesity. The patient was initially diagnosed with diabetes approximately 14 years ago. Presently, the patient takes Ozempic 1 mg SC weekly (her last dose was 3 weeks ago), U 500 insulin 170 units with breakfast, 70 units with lunch, and 50 units at bedtime for management of hyperglycemia. The patient reports occasional, mild hypoglycemic events with intact symptoms of hypoglycemia awareness. The patient denied severe low blood sugar events requiring third constitution party intervention. Review of her CGM download for the past two weeks showed morning values in the range of 86 to 144 mg/dL, lunch values ranging from 141 to 198 mg/dL, dinner values in the range of 113 to 197 mg/dL, and bedtime values ranging from 100 to 246 mg/dL. Hemoglobin A1c obtained by POC testing today was 9.5%, increased from the previous measurement of 8.1% obtained in October 2024. Physical Exam Vitals: 02/22/25 0820 BP: 126/80 BP Location: Right Arm BP Position: Sitting BP Cuff Size: Regular Pulse: 70 Resp: 22 Temp: 97.4 ??F (36.3 ??C) TempSrc: Temporal SpO2: 97% Weight: 225 lb 3.2 oz (102.2 kg) Constitutional: appears well-developed and well-nourished. No acute distress. Head: Normocephalic and atraumatic. Cardiovascular: Normal rate and regular rhythm Pulmonary/Chest: Effort normal and breath sounds normal Lab Results Component Value Date HGBA1C 7.5 (A) 02/22/2025 Her CGM download was reviewed. Morning values in the range of 86 to 144 mg/dL, lunch values ranging from 141 to 198 mg/dL, dinner values in the range of 113 to 197 mg/dL, and bedtime values ranging from 100 to 246 mg/dL Average blood glucose was 156 mg/dL +/-56 64% in range 4% low Assessment and Plan Assessment Missy Barrios is a middle-aged woman with type 2 diabetes mellitus whose glycemic control was suboptimal based on both review of her CGM download and today's hemoglobin A1c measurement. Treatmentconsideration and lifestyle modification were discussed with her at some length. She will increase Ozempic to 2 mg SC weekly and change U 500 insulin to 180-70-50 before each meal for management of hyperglycemia. The patient will return for office reevaluation in 3 months. PLAN: 1. Increase Ozempic to 2 mg SC weekly 2. Change U 500 insulin to 180-70-50 units before each meal 3. Monitor blood sugar QAC/QHS 4. Bring CBG log for review 5. Contact Endocrinology Clinic for low blood sugar events 6. RTC in 3 months Hypoglycemia PLAN: Consistent CHO diet Rule of 15 Obesity PLAN: 1. Low carb and calorie diet 2. Avoid snack and beverage between meal and at bedtime Nodular goiter PLAN: Surveillance thyroid ultrasound in 2025 Left foot pain and discomfort PLAN: Continue Lyrica Defer it to PCP Jass Mckeon MD 02/22/2025 documented in this encounter Plan of Treatment Upcoming Encounters Date Type Department Care Team (Late st Contact Info) Description 05/26/2025 8:00 AM CDT Office Visit [facility] - Endocrinology - [place] [address] [id number] Jass Mckeon MD [address] [phone] documented as of this encounter Procedures Procedure Name Priority Date/Time Associated Diagnosis Comments POCT GLYCOSYLATED HEMOGLOBIN Routine 02/22/2025 8:30 AM CDT Type 2 diabetes mellitus with diabetic polyneuropathy, with long-term current use of insulin (HCC) documented in this encounter Results * (ABNORMAL) POCT GLYCOSYLATED HEMOGLOBIN (02/22/2025 8:30 AM CDT) HGB-A1C 7.5(A) 4 - 6 % Blood 02/22/2025 8:30 AM CDT Jass Mckeon MD POINT OF CARE TESTING (MANUAL) F inal Result documented in this encounter Visit Diagnoses Diagnosis Type 2 diabetes mellitus with diabetic polyneuropathy, with long-term current use of insulin (HCC)- Primary Insulin dose changed ([facility]) Medication dose changed Hypoglycemia Hypoglycemia, unspecified Left foot pain Pain in limb documented in this encounter Care Teams Deputy Sheriff Bailiff Relationship Specialty Start Date End Date Mickey Raphael, [facility] [address] [place] [id number] PCP - General Physician Glassblower 04/23/16 Jovan Sneed MD [address] [id number] General Surgery 05/12/16 Jass Mckeon MD [address] [phone] Consulting Physician Endocrinology 02/18/22 Jass Mckeon MD [address] [phone] Consulting Physician Endocrinology 03/05/23 documented as of this encounter
== END 2025-02-23 07:15 | disposition home or self-care (01) ==
LOC: CHSIMG 07:15
PROVIDERS: PCP Physician Assistant; Visit Provider Physician Assistant
DX: E04.2 Nontoxic multinodular goiter (principal)
CPT/HCPCS: 76536